=== PATIENT | male | born 1940 | race Caucasian/White ===

== ENCOUNTER → 2018-07-13 09:30 | Outpatient (CLI) | payer MEDICARE, SELFPAY ==
--- NOTE | 2018-07-13 09:33 | MR_ITS ---
MR head/brain wo con HISTORY: Headache, tremor, facial numbness with dizziness and lightheadedness ITS.REASON: HEADACHE, TREMOR, RT SIDED WEAKNESS ORDERING PHYSICIAN: Purnima Allen PATIENT AGE: 77 years Comparison: None TECHNIQUE: Standard multiplanar multiecho sequences are performed without contrast. FINDINGS: No midline shift, mass effect, intracranial hemorrhage, hydrocephalus, or acute infarction is evident. Confluent periventricular and subcortical T2 white matter hyperintensities are noted consistent with ischemic gliotic change from microvascular disease. The pituitary, optic chiasm, and craniocervical junction are unremarkable. No mastoid effusion. There is a small air-fluid level in the left maxillary sinus. IMPRESSION: 1. No acute intracranial findings. 2. Periventricular ischemic gliotic change
== END ==
PROVIDERS: PCP Family Medicine; Visit Provider Family Medicine
DX: R51 Headache (principal); R53.1 Weakness; R20.0 Anesthesia of skin; R42 Dizziness and giddiness; R25.1 Tremor, unspecified
CPT/HCPCS: 70551

== ENCOUNTER → 2018-09-14 22:40 | Outpatient (CLI) | payer MEDICARE, SELFPAY | PROVIDERS: PCP Family Medicine; Visit Provider Emergency Medicine | DX: R33.9 Retention of urine, unspecified (principal) ==

== ENCOUNTER → 2019-02-08 13:28 | Outpatient (CLI) | payer MEDICARE, SELFPAY ==
--- NOTE | 2019-02-08 13:32 | XR_ITS ---
XR chest 2V HISTORY: ITS.REASON: SOB ORDERING PHYSICIAN: Purnima Allen PATIENT AGE: 78 years COMPARISON: 09/06/2018 FINDINGS: The cardiomediastinal silhouette and pulmonary vascularity are within normal limits. The lungs are clear without infiltrates, suspicious nodules, or pleural effusions. On the lateral view there is increased density overlying the T6-T7 vertebral bodies which may be due to an overlying osteophyte There are degenerative changes in the thoracic spine. Bilateral nipple artifacts are noted. IMPRESSION: No change with no acute finding
--- NOTE | 2019-02-08 13:33 | US_ITS ---
US soft tissue head and neck CLINICAL INDICATION: ITS.REASON: LYMPHADENOPATHY ORDERING PHYSICIAN: Purnima Allen PATIENT AGE: 78 years Comparison: None FINDINGS: General survey is performed of the neck. The parotid and submandibular glands have an unremarkable appearance. No dominant adenopathy evident. There are few scattered small nodes present. No abnormal fluid collections. IMPRESSION: Unremarkable neck ultrasound. More thorough evaluation may be performed with CT if clinically desired
== END ==
PROVIDERS: PCP Family Medicine; Visit Provider Family Medicine
DX: R06.02 Shortness of breath (principal); R59.1 Generalized enlarged lymph nodes
CPT/HCPCS: 71046; 76536; 94060

== ENCOUNTER → 2019-04-17 15:45 | Outpatient (CLI) | payer MEDICARE, SELFPAY ==
--- NOTE | 2019-04-17 15:50 | XR_ITS ---
PROCEDURE: XR CHEST 2V CLINICAL HISTORY: CP/BACK PAIN; PLEURISY COMPARISON: CXR2V XR chest 2V from 09/06/2018 TECHNIQUE: PA and lateral FINDINGS: The cardiomediastinal silhouette and pulmonary vascularity are within normal limits The lungs are clear without infiltrates, suspicious nodules, or pleural effusions. Additional findings. No acute bony abnormalities there are degenerative in the thoracic spine IMPRESSION: No change with no acute finding Dictated by: Isidoro Rooney MD 04/17/2019 16:14 Signed by: <Electronically signed by sIidoro Rooney MD in [place]> 04/17/2019 16:14
== END ==
PROVIDERS: PCP Family Medicine; Visit Provider Family Medicine
DX: R07.9 Chest pain, unspecified (principal); M54.9 Dorsalgia, unspecified; R09.1 Pleurisy
CPT/HCPCS: 71046

== ENCOUNTER 2019-05-19 10:02 | Observation (INO) ==
--- NOTE | 2019-05-19 10:14 | Emergency Department Note ---
ED Disposition Clinical Impression: Chest pain Disposition: Admitted as Observation Condition on Discharge: Serious Referrals: Provider,Referral, [Primary Care Provider] - - Critical Care Critical Care Time: No Attestation: On , the high probability of a clinically significant, sudden or life threa tening deterioration of the following system(s) required my full and direct attention, intervention and personal management. The time I documented below is in addition to time spent performing reported procedures but includes the following listed in this critical care notation. Medical Decision Making - Medical Records Medical records reviewed: Yes: I reviewed the patient's medical records. - Deonte Inquiry Pt receiving controlled substance: No Vital Signs: 05/19/19 10:03 05/19/19 10:33 05/19/19 10:56 Temperature 98.1 F Temperature Source Oral Pulse Rate [Left Radial] 57 L 56 L 54 L Respiratory Rate 20 Blood Pressure [Right Arm] 177/91 H 110/60 162/91 H Blood Pressure Mean [Right Arm] 119 76 114 Blood Pressure Source [Right Arm] Automatic Cuff Automatic Cuff Blood Pressure Position [Right Arm] Sitting Sitting 02 Sat by Pulse Oximetry 98 97 97 Oxygen Delivery Method Room Air - Lab Data Lab Results 05/19/19 10:11: WBC 7.0, RBC 5.05, Hgb 14.7, Hct 45.4, MCV 90.0, MCH 29.0, MCHC 32.3, RDW 13.3, Plt Count 291, MPV 6.4 L, Neut % (Auto) 61.3, Lymph % (Auto) 25.0, [place] % (Auto) 8.5, Eos % (Auto) 4.5, Baso % (Auto) 0.7, Neut # (Auto) 4.3, Lymph # (Auto) 1.8, [place] # (Auto) 0.6, Eos # (Auto) 0.3, Baso # (Auto) 0.1 05/19/19 10:11: Sodium 139, Potassium 4.3, Chloride 103, Carbon Dioxide 31, Anion Gap 9.3, BUN 27 H, Creatinine 0.99, Estimated Creat Clear 70, Estimated GFR 73, Est GFR ( Amer) 88, Glucose 103, Calcium 8.8, Troponin I < 0.02 Result diagrams: 05/19/19 10:11 05/19/19 10:11 Orders (Tests/Meds): ED MEDICATIONS Generic Name Dose Route Start Last Admin Trade Name Freq PRN Reason Stop Dose Admin Sodium Chloride 1,000 mls @ 999 mls/hr 05/19/19 11:00 05/19/19 11:01 Sod Chlor 0.9% 1000ml Bag IV 05/19/19 12:00 999 mls/hr .Q1H1M TATYANA Administration Discontinued Medications Generic Name Dose Route Start Last Admin Trade Name Freq PRN Reason Stop Dose Admin Aspirin 324 mg 05/19/19 10:57 05/19/19 11:02 Aspirin 81mg Chewable Tablet PO 05/19/19 10:58 324 mg ONCE ONE Administration - ECG Data Tracing #1 I reviewed this ECG and interpreted as documented below: This bradycardia at 54, normal axis, no ectopic beats, no hypertrophy, no AV or bundle-branch branch blocks, signs of ischemia or infarction. Chest Pain HPI - General Chief Complaint: Chest Pain Stated Complaint: chest pain Time Seen by Provider: 05/19/19 10:09 Mode of Arrival: Ambulatory Limitations: No Limitations Description of Symptoms (Recalled from ER Triage Doc. by RN): to ed per pvt car with c/o sharp chest pain and lt arm tingling this am lasting approx 10mins. pt states pain free at present. +SOB, -Nausea, pt states has had intermittent episode x several months. denies cough, fever, chills - History of Present Illness MD complaint: chest pain Onset (ago): hour(s) (1) Duration: intermittent, now resolved Activity at onset: during rest Pain location: epigastric Severity: moderate Quality: tightness Relieving factors: nothing Exacerbating factors: nothing Associated symptoms: other (Numbness and tingling left lower arm and hand) Treatments prior to or on arrival for Cardiac Chest Pain: none - ANETA Score for Non-Stemi Age of Patient: 70-79 years old Heart Rate: 50-69 bpm Systolic Blood Pressure: 160-199 mmHg Serum Creatinine: 0.80-1.19 mg/dl CHF [place] Class: I-No CHF Other Risk Factors: None Non-Stemi Risk Score: 95 Risk Stratification: 1-108 = Low Risk - Related Data Home Medications Medication Instructions Recorded Confirmed Atenolol [Atenolol 25mg Tab] 25 mg PO BID 01/30/18 10/10/18 Lisinopril [Lisinopril 5mg 5 mg PO DAILY 01/30/18 10/10/18 Tablet] Omeprazole [Omeprazole 40mg 40 mg PO DAILY 01/30/18 10/10/18 Capsule] Simvastatin 40 mg PO DAILY 01/30/18 10/10/18 Tamsulosin HCl [Flomax 0.4mg 0.4 mg PO HS 10/10/18 10/10/18 capsule] Previous Rx's Medication Instructions Recorded hydrochlorothiazide 12.5 mg capsule 12.5 mg PO DAILY #30 cap 07/14/18 Allergies Allergy/AdvReac Type Severity Reaction Status Date / Time codeine [CODEINE] Allergy Unknown Verified 09/13/18 21:55 [facility] History - Hepatitis A Screen Drug use history?: No High risk sexual behaviors?: No History of sexually transmitted infection?: No Currently employed?: No Childcare worker?: No Do you have indoor plumbing?: Yes Do you have electricity?: Yes Attestation statement:: This patient has been screened for Hepatitis A risk factors. I have reviewed the patient's past medical history: Yes Medical History: Reports:: Atrial Fibrillation, Gastroesophageal Reflux Disease(GERD), Hyperlipidemia, Hypertension Denies:: Cancer, Diabetes Mellitus Type 1, Diabetes Mellitus Type 2, Internal Pacemaker, Lung Disease, MRSA, Seizures Other Medical History: Reports: Other Comment: Fluid around lungs Other Surgeries: Yes: Other. No: Pacemaker Amputation: No Fractures: No Comment: Prostate surgery - Social History Smoking Status: Former smoker Alcohol Intake: never Alcohol Intake Frequency:: holidays/special occasions only Substance Use Type: denies use Occupational Status: retired Housing: house Household Members: none Family Hx:: No significant family history ROS Obtained: Yes Systems reviewed as appropriate & no additional complaints - Constitutional Constitutional: Reports system reviewed and no additional complaints, except as docu - Eyes Eyes: Reports system reviewed and no additional complaints, except as docu - ENT Ears, Nose, Mouth, and Throat: Reports system reviewed and no additional complaints, except as docu - Cardiovascular Cardiovascular: Reports chest pain, Reports other (This and tingling in the left lower arm and hand) - Respiratory Respiratory: Yes system reviewed and no additional complaints, except as docu - Gastrointestinal Gastrointestingal: Reports: system reviewed and no additional complaints, except as docu - Genitourinary Male Genitourinary: Reports system reviewed and no additional complaints, except as docu - Musculoskeletal Musculoskeletal: Reports system reviewed and no additional complaints, except as docu - Integumentary/Breasts Skin/Breast: Reports system reviewed and no additional complaints, except as docu - Neurologic Neurologic: Reports system reviewed and no additional complaints, except as docu - Endocrine Endocrine: Reports system reviewed and no additional complaints, except as docu - Hematologic/Lymphatic Henatologic/Lymphatic: Reports system reviewed and no additional complaints, except as docu - Allergic/Immunologic Allergic/Immunologic: Reports system reviewed and no additional complaints, except as docu Physical Exam - General General appearance: alert, in no apparent distress - Head Head exam: atraumatic, normocephalic, normal inspection - Eye Eye exam: Present: normal appearance, EOMI - ENT ENT exam: Present: normal exam, normal oropharynx, mucous membranes moist, TM's normal bilaterally, normal external ear exam - Neck Neck exam: Present: normal inspection, full ROM, trachea midline. Absent: meningismus, lymphadenopathy - Chest Chest inspection: Present: normal inspection, symmetric chest wall rise. Absent: tenderness - Respiratory Respiratory exam: Present: normal lung sounds bilaterally. Absent: respiratory distress - Cardiovascular Cardiovascular exam: Present: normal rhythm, bradycardia, normal heart sounds. Absent: JVD - Abdominal Exam Abdominal exam: Present: soft, normal bowel sounds. Absent: distention, tenderness, guarding - Extremities Exam Extremities exam: Present: normal inspection, full ROM, normal capillary refill. Absent: calf tenderness - Back Exam Back exam: Present: normal inspection. Absent: tenderness - Neurological Exam Neurological exam: Present: alert, oriented X3, CN II-XII intact, normal gait - Psychiatric Psychiatric exam: Present: normal affect, normal mood - Skin Skin exam: Present: warm, dry, intact, normal color - Lymphatic Lymphatic Findings: no adenopathy
[2019-05-19 10:21] LABS: Basophils # 0.1 K/mm3 (0-0.2); Basophils % 0.7 % (0.1-2.0); Eosinophils # 0.3 K/mm3 (0.0-0.4); Eosinophils % 4.5 % (0.1-12.0); Hematocrit 45.4 % (42.0-52.0); Hemoglobin 14.7 g/dL (14.1-18.0); Lymphocytes # 1.8 K/mm3 (0.7-4.5); Mean Corpuscular HGB Conc 32.3 g/dL (31.8-35.4); Mean Platelet Volume 6.4 fl (7.4-10.4); Monocytes # 0.6 K/mm3 (0.1-1.0); Monocytes % 8.5 % (1.7-9.3); Neutrophils # 4.3 K/mm3 (1.8-7.8); Neutrophils % 61.3 % (37.0-80.0); Platelet Count 291 K/mm3 (142-424); Red Blood Count 5.05 M/mm3 (4.60-6.20); Red Cell Distribution Width 13.3 % (11.5-17.5)
[2019-05-19 10:34] LABS: Anion Gap 9.3 mEq/L (5-15); Blood Urea Nitrogen 27 mg/dL (7-18); Calcium 8.8 mg/dL (8.5-10.1); Carbon Dioxide 31 mmol/L (21.0-32.0); Chloride 103 mmol/L (98-107); Glucose 103 mg/dL (74-106); Sodium 139 mmol/L (136-145)
--- NOTE | 2019-05-19 13:06 | Pharmacy Consult Notes ---
[facility] Pharmacy VTE Monitoring - Patient Demographics Admission date: 05/19/19 Report Date: 05/19/19 Time: 13:06 Allergies/Adverse Reactions: Patient Allergies codeine [CODEINE] Allergy (Unknown, Verified 09/13/18 21:55) Height: 1.73 m Weight: 82.639 kg Patient Problems: Current Active Problems Chest pain (Acute) - VTE Risk Labs: VTE Related Lab Results Hgb 14.7 g/dL (14.1-18.0) 05/19/19 10:11 Hct 45.4 % (42.0-52.0) 05/19/19 10:11 Plt Count 291 K/mm3 (142-424) 05/19/19 10:11 BUN 27 mg/dL (7-18) H 05/19/19 10:11 Creatinine 0.99 mg/dL (0.70-1.30) 05/19/19 10:11 Estimated Creat Clear 70 mL/min (50-200) 05/19/19 10:11 Was VTE Risk Assessment Performed: Yes VTE Score: 2 VTE Risk Level: Very Low Risk - Prophylaxis VTE Prophylaxis Ordered?: Yes Types of VTE Prophylaxis: TEDS Knee High Location of Applied Device: Bilateral Lower Extremeties
--- NOTE | 2019-05-19 14:59 | History & Physical Report ---
*Admission Date: 05/19/19 *Chief complaint: Chest pain *History of present illness: Mr. Monae is a 78-year-old white male in generally good health for his age. He has a history of hypertension, hyperlipidemia, BPH, and GERD. He has been having brief intermittent episodes of substernal chest pain and tingling in his left arm and hand for several weeks. He minimizes symptoms until recently was having similar symptoms and found to have " maker lesion". When he had another episode of chest pain this morning he came to emergency room. He was worked up in the ER. His initial EKG and enzymes were negative however because of his presenting complaints he has been admitted for serial enzymes to rule out acute CO. He reports having had a heart cath about 2 years ago which was "normal". He was supposed to follow-up with Dr. Mclean but did not. He has continued to follow with his primary care physician, Dr. Luz Marina Allen in [place]. He apparently was on several blood pressure medications but because of hypotension many of these have been discontinued. At the present time he denies chest pain. Cardiac risk factors include age, gender, family history, past history of smoking, hypertension, and hyperlipidemia [facility] History Medical History: Reports:: Gastroesophageal Reflux Disease(GERD), Hyperlipidemia, Hypertension Denies:: Cancer, Diabetes Mellitus Type 1, Diabetes Mellitus Type 2, Internal Pacemaker, Lung Disease, MRSA, Seizures *Have you ever received a pneumonia vaccine?: Yes *Have you received a flu vaccine this season?: No Other Medical History: Reports: Arthritis, Other (BPH) Other Surgeries: Yes: Other. No: Pacemaker Amputation: No Fractures: No - *Social History Educational Level: Completed High School Smoking Status: Former smoker Tobacco Type: cigarettes # Packs/Day (cigarettes): 1 #Yrs smoked (if former smoker): 45 Alcohol Intake Frequency:: holidays/special occasions only Substance Use Type: denies use *Occupational Status:: retired Housing: house Household Members: none *Travel in the last 8 weeks: None Family Hx:: Hyperlipidemia Review of Systems - Constitutional Denies anorexia, Denies headache(s), Denies lack of energy - Eyes Denies change in vision - ENT Denies dizziness, Denies dry mouth, Denies headache(s) - *Cardiovascular Reports other (See HPI) - *Respiratory Denies chest congestion, Denies cough - *Gastrointestinal Reports heartburn, Denies change in bowel habits, Denies difficulty swallowing, Denies bright, red blood in stools - *Genitourinary Reports urinary frequency, Reports urinary hesitancy, Denies blood in urine - *Musculoskeletal Denies joint swelling, Denies muscle cramps - Integumentary/Breasts Denies change in skin color, Denies itching, Denies rash - *Neurologic Denies behavioral changes, Denies confusion, Denies memory loss - Psychiatric Denies behavioral changes, Denies confusion, Denies memory loss - Endocrine Denies excessive sweating - Hematologic/Lymphatic Denies easy bruising - Allergic/Immunologic Denies lip swelling, Denies throat swelling Meds Home Medications Medication Instructions Recorded Confirmed Type Atenolol [Atenolol 25mg Tab] 25 mg PO BID 01/30/18 05/19/19 History Omeprazole [Omeprazole 40mg 40 mg PO DAILY 01/30/18 05/19/19 History Capsule] Simvastatin 40 mg PO HS 01/30/18 05/19/19 History Tamsulosin HCl [Flomax 0.4mg 0.4 mg PO HS 10/10/18 05/19/19 History capsule] Finasteride [Proscar 5mg Tablet] 5 mg PO DAILY 05/19/19 05/19/19 History Allergies Allergy/AdvReac Type Severity Reaction Status Date / Time codeine [CODEINE] Allergy Unknown Verified 09/13/18 21:55 Exam Vital signs and Labs for Last 24 Hours: Temp Pulse Resp BP Pulse Ox 98.0 F 58 L 18 180/94 H 96 05/19/19 12:39 05/19/19 12:39 05/19/19 12:39 05/19/19 12:39 05/19/19 12:39 Laboratory Results - last 24 hr 05/19/19 10:11: WBC 7.0, RBC 5.05, Hgb 14.7, Hct 45.4, MCV 90.0, MCH 29.0, MCHC 32.3, RDW 13.3, Plt Count 291, MPV 6.4 L, Neut % (Auto) 61.3, Lymph % (Auto) 25.0, [place] % (Auto) 8.5, Eos % (Auto) 4.5, Baso % (Auto) 0.7, Neut # (Auto) 4.3, Lymph # (Auto) 1.8, [place] # (Auto) 0.6, Eos # (Auto) 0.3, Baso # (Auto) 0.1 05/19/19 10:11: Sodium 139, Potassium 4.3, Chloride 103, Carbon Dioxide 31, Anion Gap 9.3, BUN 27 H, Creatinine 0.99, Estimated Creat Clear 70, Estimated GFR 73, Est GFR ( Amer) 88, Glucose 103, Calcium 8.8, Troponin I < 0.02 I & O for Last 24 hours: Intake & Output 05/17/19 05/18/19 05/19/19 05/20/19 11:59 11:59 11:59 11:59 Weight 180 lb 182 lb 3 oz Narrative: He is lying in bed and appears in no distress. Color is normal. He is alert and conversant. HEENT shows a cream to be atraumatic and normocephalic. Sclera were clear. Oropharynx shows moist mucous membranes. Neck is supple with no masses, thyromegaly, or bruits. Lungs are clear to auscultation. Heart is regular. No ectopy. No chest wall tenderness. Abdomen is soft and nond istended with no unusual masses or tenderness. Extremities show no edema. Assessment and Plan (1) Hypertension Current visit: Yes Status: Acute Category: Medical Code(s): I10 - Essential (primary) hypertension (2) Hyperlipidemia Current visit: Yes Status: Acute Category: Medical Code(s): E78.5 - Hyperlipidemia, unspecified (3) BPH (benign prostatic hyperplasia) Current visit: Yes Status: Acute Category: Medical Code(s): N40.0 - Benign prostatic hyperplasia without lower urinary tract symptoms (4) GERD (gastroesophageal reflux disease) Current visit: Yes Status: Acute Category: Medical Code(s): K21.9 - Gastro-esophageal reflux disease without esophagitis (5) Chest pain Current visit: Yes Status: Acute Category: Medical Code(s): R07.9 - Chest pain, unspecified - Assessment and plan all Dx Assessment and Plan for all problems:: He appears comfortable and stable. No chest pain at present. We will proceed with serial enzymes. Blood pressure has been elevated since admission, if this persists we will need to reinstitute antihypertensive medication. If he rules out for acute CO, we will plan for discharge and follow-up for outpatient stress test with Dr. Mclean
[2019-05-20 04:52] LABS: Alanine Aminotransferase 20 U/L (12-78); Albumin Level 3.2 gm/dL (3.4-5.0); Albumin/Globulin Ratio 1.1 (1.1-1.8); Alkaline Phosphatase 58 U/L (46-116); Anion Gap 11.1 mEq/L (5-15); Aspartate Amino Transferase 18 U/L (15-37); Bilirubin,Total 0.4 mg/dL (0.2-1.0); Blood Urea Nitrogen 21 mg/dL (7-18); Calcium 8.1 mg/dL (8.5-10.1); Carbon Dioxide 28 mmol/L (21.0-32.0); Chloride 106 mmol/L (98-107); Cholesterol 146 mg/dL (140-200); Glucose 101 mg/dL (74-106); HDL Cholesterol 49 mg/dL (27-67); LDL Cholesterol 80 mg/dL (0-130); Sodium 141 mmol/L (136-145); Total Protein,Serum 6.2 gm/dL (6.4-8.2); Triglycerides 86 mg/dL (30-200); VLDL Cholesterol 17 mg/dL (0-40)
[2019-05-20 05:06] LABS: Basophils % 0.5 % (0.1-2.0); Eosinophils # 0.3 K/mm3 (0.0-0.4); Eosinophils % 3.8 % (0.1-12.0); Hematocrit 41.3 % (42.0-52.0); Lymphocytes # 1.9 K/mm3 (0.7-4.5); Lymphocytes % 27.4 % (10-50); Mean Corpuscular HGB Conc 31.9 g/dL (31.8-35.4); Mean Corpuscular Volume 90.4 fl (80-94); Mean Platelet Volume 6.5 fl (7.4-10.4); Monocytes # 0.5 K/mm3 (0.1-1.0); Monocytes % 7.5 % (1.7-9.3); Neutrophils # 4.1 K/mm3 (1.8-7.8); Neutrophils % 60.8 % (37.0-80.0); Platelet Count 255 K/mm3 (142-424); Red Blood Count 4.57 M/mm3 (4.60-6.20); Red Cell Distribution Width 13.4 % (11.5-17.5); White Blood Count 6.8 K/mm3 (4.8-10.8)
[2019-05-20 05:07] LABS: Hemoglobin 13.1 g/dL (14.1-18.0)
--- NOTE | 2019-05-20 08:25 | Progress Note ---
Internal Medicine - PN: Subj *Date: 05/20/19 *Time: 09:06 Interval history: He states he feels good this morning and wants to go home. He had an episode of pain in his left elbow and shoulder around midnight last night. Stat EKG and enzymes were ordered and these were negative. He reports a history of arthritis in that shoulder and it frequently gives him problems. He had no associated chest pain at the time he had the arm pain. Exam Vital signs and Labs for Last 24 Hours: Temp Pulse Resp BP Pulse Ox 98.7 F 50 L 18 171/99 H 92 L 05/20/19 07:21 05/20/19 08:00 05/20/19 07:21 05/20/19 07:21 05/20/19 07:21 Laboratory Results - last 24 hr 05/19/19 10:11: WBC 7.0, RBC 5.05, Hgb 14.7, Hct 45.4, MCV 90.0, MCH 29.0, MCHC 32.3, RDW 13.3, Plt Count 291, MPV 6.4 L, Neut % (Auto) 61.3, Lymph % (Auto) 25.0, [place] % (Auto) 8.5, Eos % (Auto) 4.5, Baso % (Auto) 0.7, Neut # (Auto) 4.3, Lymph # (Auto) 1.8, [place] # (Auto) 0.6, Eos # (Auto) 0.3, Baso # (Auto) 0.1 05/19/19 10:11: Sodium 139, Potassium 4.3, Chloride 103, Carbon Dioxide 31, Anion Gap 9.3, BUN 27 H, Creatinine 0.99, Estimated Creat Clear 70, Estimated GFR 73, Est GFR ( Amer) 88, Glucose 103, Calcium 8.8, Troponin I < 0.02 05/19/19 14:30: Troponin I < 0.02 05/19/19 20:15: Troponin I < 0.02 05/20/19 01:25: Troponin I < 0.02 05/20/19 04:30: WBC 6.8, RBC 4.57 L, Hgb 13.1 L D, Hct 41.3 L, MCV 90.4, MCH 28.8, MCHC 31.9, RDW 13.4, Plt Count 255, MPV 6.5 L, Neut % (Auto) 60.8, Lymph % (Auto) 27.4, [place] % (Auto) 7.5, Eos % (Auto) 3.8, Baso % (Auto) 0.5, Neut # (Auto) 4.1, Lymph # (Auto) 1.9, [place] # (Auto) 0.5, Eos # (Auto) 0.3, Baso # (Auto) 0.0 05/20/19 04:30: Sodium 141, Potassium 4.1, Chloride 106, Carbon Dioxide 28, Anion Gap 11.1, BUN 21 H, Creatinine 0.95, Estimated Creat Clear 71, Estimated GFR 77, Est GFR ( Amer) 93, Glucose 101, Calcium 8.1 L, Magnesium 1.9, Total Bilirubin 0.4, AST 18, ALT 20, Alkaline Phosphatase 58, Troponin I < 0.02, Total Protein 6.2 L, Albumin 3.2 L, Globulin 3.0, Albumin/Globulin Ratio 1.1, Triglycerides 86, Cholesterol 146, LDL Cholesterol 80, VLDL Cholesterol 17, HDL Cholesterol 49, Cholesterol/HDL Ratio 3.0 I & O for Last 24 hours: Intake & Output 05/17/19 05/18/19 05/19/19 05/20/19 11:59 11:59 11:59 11:59 Intake Total 1907 Balance 1907 Weight 180 lb 182 lb 8 oz Narrative: He is alert and in no distress. Lungs are clear. Heart is regular with no ectopy. No chest wall tenderness. He has decreased range of motion of the left shoulder due to pain and stiffness. Lower extremities show no edema. Assessment and Plan (1) Chest pain Current visit: Yes Status: Acute Category: Medical Code(s): R07.9 - Chest pain, unspecified (2) Hypertension Current visit: Yes Status: Acute Category: Medical Code(s): I10 - Essential (primary) hypertension (3) Hyperlipidemia Current visit: Yes Status: Acute Category: Medical Code(s): E78.5 - Hyperlipidemia, unspecified (4) BPH (benign prostatic hyperplasia) Current visit: Yes Status: Acute Category: Medical Code(s): N40.0 - Benign prostatic hyperplasia without lower urinary tract symptoms (5) GERD (gastroesophageal reflux disease) Current visit: Yes Status: Acute Category: Medical Code(s): K21.9 - Gastro-esophageal reflux disease without esophagitis - Assessment and plan all Dx Assessment and Plan for all problems:: He has been ruled out for MS. He is stable to discharge home and will arrange outpatient follow-up with Dr. Mclean for additional testing by way of a stress test. His blood pressure has been consistently elevated during this admission and he will be started back on Prinivil 5 mg daily in addition to the atenolol. He is also advised to take aspirin 81 mg daily. He is planning to switch his primary care to Dr. Alicea and will contact his office tomorrow for follow-up appointment.
--- NOTE | 2019-05-20 21:02 | Electrocardiograph Report ---
APPROVED REPORT Exam: Resting ECG HR:50 bpm ECG Measurements Heart Rate 50 AXES [place] 132 P 66 QRSd 84 QRS 39 QT 452 T53 QTc 412 <Conclusion> Sinus bradycardia Otherwise normal ECG Electronically signed by : Liban Aguilera, 05/20/2019 21:01:50
--- NOTE | 2019-05-20 21:02 | Electrocardiograph Report ---
APPROVED REPORT Exam: Resting ECG HR:49 bpm ECG Measurements Heart Rate 49 AXES [place] 140 P 67 QRSd 88 QRS 51 QT 462 T61 QTc 417 <Conclusion> Marked sinus bradycardia Incomplete RBBB Abnormal ECG Electronically signed by : Liban Aguilera, 05/20/2019 21:01:25
--- NOTE | 2019-05-20 21:10 | Electrocardiograph Report ---
APPROVED REPORT Exam: Resting ECG HR:54 bpm ECG Measurements Heart Rate 54 AXES [place] 144 P 67 QRSd 88 QRS 44 QT 426 T43 QTc 403 <Conclusion> Sinus bradycardia Otherwise normal ECG Electronically signed by : Liban Aguilera, 05/20/2019 21:10:14
--- NOTE | 2019-05-21 14:41 | Discharge Summary ---
General - General Admission date:: 05/19/19 Discharge date: 05/20/19 HPI HPI: Mr. Monae is a 78-year-old white male in generally good health for his age. He has a history of hypertension, hyperlipidemia, BPH, and GERD. He had been having brief intermittent episodes of substernal chest pain and tingling in his left arm and hand for several weeks. He minimized symptoms until recently when he was having similar symptoms and found to have " maker lesion". When he had another episode of chest pain the am of admission, he came to emergency room. He was worked up in the ER. His initial EKG and enzymes were negative, however because of his presenting complaints he was admitted for serial enzymes to rule out acute NM. He reported having had a heart cath about 2 years ago which was "normal". He was supposed to follow-up with Dr. Mclean but did not. He had continued to follow with his primary care physician, Dr. Luz Marina Allen in [place]. He apparently was on several blood pressure medications but because of hypotension, many of these have been discontinued. Cardiac risk factors include age, gender, family history, past history of smoking, hypertension, and hyperlipidemia Hospital Course Hospital Course: The patient had a chest x-ray showing nothing acute. He had no chest pain by the time of history and physical. Serial enzymes were ordered. He did have an episode during the night of pain in his left elbow and shoulder. He had a stat EKG and enzymes and they were negative. All of his troponins were normal. He was ruled out for an NM and was stable to be discharged home. An outpatient follow-up will be arranged with Dr. Mclean for additional testing by way of a stress test. His blood pressure was consistently elevated during admission, therefore he was started back on Prinivil 5 mg daily in addition to his atenolol. He was also advised to take an 81 mg aspirin daily Objective Vital signs: Temp Pulse Resp BP Pulse Ox 98.7 F 50 L 18 171/99 H 92 L 05/20/19 07:21 05/20/19 08:00 05/20/19 07:21 05/20/19 07:21 05/20/19 07:21 Narrative: He is alert and in no distress. Lungs are clear. Heart is regular with no ectopy. No chest wall tenderness. He has decreased range of motion of the left shoulder due to pain and stiffness. Lower extremities show no edema. DS: Diagnosis - Discharge Diagnosis (1) Chest pain Status: Acute (2) Hypertension Status: Acute (3) Hyperlipidemia Status: Acute (4) BPH (benign prostatic hyperplasia) Status: Acute (5) GERD (gastroesophageal reflux disease) Status: Acute Discharge Plan - Patient Discharge Instructions ACTIVITY: Continue current activity DIET: low fat, low cholesterol, low salt diet Patient Instructions: DI for Angina - Follow up Plan Follow up with: Larry Mclean MD [Staff Physician] - 05/31/19 Disposition: Home, Self-Snf Medications: Home Medications Medication Instructions Recorded Confirmed Type Atenolol [Atenolol 25mg Tab] 25 mg PO BID 01/30/18 05/19/19 History Omeprazole [Omeprazole 40mg 40 mg PO DAILY 01/30/18 05/19/19 History Capsule] Simvastatin 40 mg PO HS 01/30/18 05/19/19 History Tamsulosin HCl [Flomax 0.4mg 0.4 mg PO HS 10/10/18 05/19/19 History capsule] Finasteride [Proscar 5mg Tablet] 5 mg PO DAILY 05/19/19 05/19/19 History Aspirin [Aspirin 81mg EC Tab] 81 mg PO DAILY #30 tablet. 05/20/19 Rx Lisinopril [Prinivil 5mg Tablet] 5 mg PO DAILY #30 tab 05/20/19 Rx Prescriptions/Medication Reconciliation: New Lisinopril [Prinivil 5mg Tablet] 5 mg PO DAILY #30 tab Aspirin [Aspirin 81mg EC Tab] 81 mg PO DAILY #30 tablet. Continued Omeprazole [Omeprazole 40mg Capsule] 40 mg PO DAILY Atenolol [Atenolol 25mg Tab] 25 mg PO BID Simvastatin 40 mg PO HS Tamsulosin HCl [Flomax 0.4mg capsule] 0.4 mg PO HS Finasteride [Proscar 5mg Tablet] 5 mg PO DAILY - Problem Reconciliation Problems Reviewed?: Yes
== END 2019-05-20 09:00 | disposition home or self-care (01) ==
LOC: ER 10:02 → 2ND 10:02
PROVIDERS: ADMIT Family Medicine; ATTEND Family Medicine
CPT/HCPCS: 36415; 71020; 71046; 80048; 80053; 80061; 83735; 84484; 85025; 93005; 96365; 99285; G0378

== ENCOUNTER → 2019-06-06 07:55 | Outpatient (CLI) | payer MEDICARE, SELFPAY ==
--- NOTE | 2019-06-06 08:01 | XR_ITS ---
PROCEDURE: XR HIP LT 2-3V W/PELVIS CLINICAL INDICATION: HIP PAIN COMPARISON: No exams were available for comparison FINDINGS: Bone density and joint spaces are normal. Alignment is normal. There is small inferior left femoral subcapital spur. There is no acute fracture. There are pelvic phleboliths. IMPRESSION: No acute process. Left hip degenerative changes. Dictated by: Fan Samson 06/06/2019 08:39 Electronically signed by Fan Samson in [place] 06/06/2019 08:39
--- NOTE | 2019-06-06 08:01 | XR_ITS ---
PROCEDURE: XR SACROILIAC JOINT BI MIN 3V CLINICAL INDICATION: HIP PAIN COMPARISON: No exams were available for comparison FINDINGS: Bone density is normal. Alignment and hip joint spaces are normal. There is small inferior subcapital spur from the proximal left femur. His sacral foramina and sacroiliac joints are normal. There is no acute fracture. There are pelvic phleboliths. IMPRESSION: Mild degenerative change left hip. No acute process. Dictated by: Fan Samson 06/06/2019 08:37 Electronically signed by Fan Samson in [facility] 06/06/2019 08:37
== END ==
PROVIDERS: PCP Family Medicine; Visit Provider Family Medicine
DX: M25.552 Pain in left hip (principal)
CPT/HCPCS: 72202; 73502

== ENCOUNTER → 2019-06-22 12:30 | Outpatient (CLI) | payer MEDICARE, SELFPAY ==
--- NOTE | 2019-06-22 12:32 | CA_ITS ---
APPROVED REPORT EXAM: Comprehensive 2D, Doppler, and color-flow Echocardiogram Digital Traffic Coordinator: Judith Loja RT(R) Ht: 5 ft 8 in Wt: 181lbs BSA: 1.96 BP: 148/76 mmHg Indications: HTN, SOB, Hyperlipidemia, CAD, AFIB, GERD 2D Dimensions Aortic Root 2.30 cm M: 3.1 - 3.7 Left Atrium 4.20 cm M: 3.0 - 4.0 LVOT 1.84 cm (M/F) 1.5-2.5 M-Mode Dimensions RVDd 1.60 cm (0.9-2.6) LVDd 4.99 cm (3.5-5.7) LVDs 3.85 cm (3.5-5.7) IVSd 0.76 cm (0.6-1.1) PWd 0.69 cm (0.6-1.1) EF (Teich) 45.70% FS 22.80% EDV (Teich) 117.70 mL ESV (Teich) 63.90 mL Left Ventricle Left atrium is mildly enlarged, left ventricle is normal size, there is mild concentric left ventricular hypertrophy, visually estimated ejection fraction 55% with no regional wall motion abnormality. Diastolic parameters are inconclusive. Right Ventricle Right atrium and right ventricular normal size and contractility. Aortic Valve Aortic valve is minimally thickened and fibrosed. Leaflet continue to display good mobility. There is no aortic stenosis aortic insufficiency. Mitral Valve Mitral valve is grossly normal, there is mild mitral regurgitation. Tricuspid Valve Tricuspid valve is grossly normal, there is mild tricuspid regurgitation, tricuspid regurgitation jet velocity is inadequate for calculation of the right ventricular systolic pressure. Pulmonic Valve Pulmonic valve is poorly visualized. Great Vessels Aortic root is normal size. Pericardium No significant pericardial effusion noted. Conclusion 1. Normal left ventricular size, mild concentric left ventricular hypertrophy, visually estimated ejection fraction 55% with no regional wall motion abnormality, diastolic parameters are inconclusive. 2. Mild mitral and tricuspid regurgitation 3. No significant pericardial effusion noted. Electronically signed by : Quan Mendez, 06/22/2019 20:47:04
== END ==
PROVIDERS: PCP Family Medicine; Visit Provider Internal Medicine Cardiovascular Disease
DX: R06.02 Shortness of breath (principal)
CPT/HCPCS: 93306

== ENCOUNTER → 2019-09-19 06:05 | Outpatient (CLI) | payer MEDICARE, SELFPAY ==
[2019-09-19 06:31] LABS: Basophils % 0.6 % (0.1-2.0); Eosinophils # 0.3 K/mm3 (0.0-0.4); Eosinophils % 4.1 % (0.1-12.0); Hematocrit 41.1 % (42.0-52.0); Hemoglobin 13.6 g/dL (14.1-18.0); Lymphocytes # 1.7 K/mm3 (0.7-4.5); Mean Corpuscular HGB Conc 33.2 g/dL (31.8-35.4); Mean Corpuscular Hemoglobin 29.8 pg (27.0-31.2); Mean Corpuscular Volume 89.9 fl (80-94); Mean Platelet Volume 7.2 fl (7.4-10.4); Monocytes # 0.5 K/mm3 (0.1-1.0); Neutrophils # 3.7 K/mm3 (1.8-7.8); Neutrophils % 59.3 % (37.0-80.0); Platelet Count 250 K/mm3 (142-424); Red Blood Count 4.57 M/mm3 (4.60-6.20); Red Cell Distribution Width 12.6 % (11.5-17.5); White Blood Count 6.2 K/mm3 (4.8-10.8)
[2019-09-19 08:59] LABS: Alanine Aminotransferase 14 U/L (12-78); Albumin Level 3.5 gm/dL (3.4-5.0); Albumin/Globulin Ratio 1.2 (1.1-1.8); Alkaline Phosphatase 71 U/L (46-116); Anion Gap 12.3 mEq/L (5-15); Aspartate Amino Transferase 16 U/L (15-37); Bilirubin,Total 0.7 mg/dL (0.2-1.0); Blood Urea Nitrogen 23 mg/dL (7-18); Carbon Dioxide 26 mmol/L (21.0-32.0); Chloride 103 mmol/L (98-107); Chol/HDL Ratio 3.1 (1-3.5); Cholesterol 151 mg/dL (140-200); Creatinine,Serum 0.97 mg/dL (0.70-1.30); Estimated Glomerular Filt Rate 75 ml/min (>60); GFR (African American) 91 ML/MIN (>60); Glucose 102 mg/dL (74-106); HDL Cholesterol 48 mg/dL (27-67); LDL Cholesterol 90 mg/dL (0-130); Potassium 4.3 mmoL/L (3.5-5.1); Prostate Specific Ag, Diagnost 3.56 ng/mL (0.0-4.0); Sodium 137 mmol/L (136-145); Total Protein,Serum 6.5 gm/dL (6.4-8.2); Triglycerides 65 mg/dL (30-200); VLDL Cholesterol 13 mg/dL (0-40)
== END ==
PROVIDERS: PCP Internal Medicine; Visit Provider Internal Medicine
DX: I25.10 Atherosclerotic heart disease of native coronary artery without angina pectoris (principal); I10 Essential (primary) hypertension; J44.9 Chronic obstructive pulmonary disease, unspecified; E78.5 Hyperlipidemia, unspecified; N40.0 Benign prostatic hyperplasia without lower urinary tract symptoms
CPT/HCPCS: 36415; 80053; 80061; 84153; 85025

== ENCOUNTER → 2020-03-12 09:03 | Outpatient (CLI) | payer MEDICARE, SELFPAY ==
--- NOTE | 2020-03-12 09:59 | CA_ITS ---
APPROVED REPORT EXAM: Comprehensive 2D, Doppler, and color-flow Echocardiogram Managing Cognitive Engineer: Day Arriaga CRT Ht: 5 ft 8 in Wt: 191lbs BSA: 2.00 BP: 126/64 mmHg Indications: Chest Pain, COPD, Shortness of Breath, CAD, Hyperlipidemia, Hypertension/HDD 2D Dimensions LVOT 1.92 cm (M/F) 1.5-2.5 M-Mode Dimensions RVDd 3.27 cm (0.9-2.6) LVDd 4.07 cm (3.5-5.7) LVDs 2.74 cm (3.5-5.7) IVSd 1.48 cm (0.6-1.1) PWd 0.99 cm (0.6-1.1) EF (Teich) 61.60% FS 32.70% EDV (Teich) 72.90 mL ESV (Teich) 28.00 mL LV Diastology E/A Ratio 1.18 Mitral Valve MV A Velocity 69.00 (40-130 cm/s) Left Ventricle Left atrium is mildly enlarged, left ventricle is normal size, mild concentric left ventricular hypertrophy, visually estimated ejection fraction 55% with no regional wall motion abnormality. Grade 1 diastolic dysfunction seen without tissue Doppler evidence of raise left atrial pressure. Right Ventricle Right atrium and right ventricular mildly enlarged with normal contractility. Aortic Valve Aortic valve is minimally thickened and fibrosed, there is no aortic stenosis or aortic insufficiency. Mitral Valve Mitral valve leaflets are minimally thickened, there is no mitral stenosis, there is mild mitral regurgitation. Tricuspid Valve Tricuspid valve is grossly normal, there is mild tricuspid regurgitation, calculated right ventricular systolic pressure is 50mmHg. Pulmonic Valve Pulmonic valve is poorly visualized. Great Vessels Aortic root is normal size. Pericardium No significant pericardial effusion noted. Conclusion 1. Mild biatrial enlargement, normal left ventricular size, mild concentric left ventricular hypertrophy, visually estimated ejection fraction 55% with no regional wall motion abnormality, grade 1 diastolic dysfunction seen without tissue Doppler evidence of raise left atrial pressure. 2. Mildly enlarged right ventricle with normal contractility. 3. Mild mitral and tricuspid regurgitation, calculated right ventricular systolic pressure is 50 mmHg. 4. No significant pericardial effusion noted. Electronically signed by : Quan Mendez, 03/13/2020 10:27:48
== END ==
PROVIDERS: PCP Internal Medicine; Visit Provider Urology
DX: R07.89 Other chest pain; R06.02 Shortness of breath; R00.1 Bradycardia, unspecified; E78.2 Mixed hyperlipidemia; I10 Essential (primary) hypertension; I25.10 Atherosclerotic heart disease of native coronary artery without angina pectoris; J44.9 Chronic obstructive pulmonary disease, unspecified; K21.9 Gastro-esophageal reflux disease without esophagitis
CPT/HCPCS: 93306

== ENCOUNTER 2020-03-31 20:37 | Emergency (ER) | payer MEDICARE, SELFPAY ==
[2020-03-31 20:38] VITALS: BP 133/74; PULSE 70; RESP 20; TEMP 36.8; O2SAT 98; BMI 29.2
[2020-03-31 21:06] VITALS: BP 133/74; PULSE 70; RESP 20; TEMP 36.8; O2SAT 98
--- NOTE | 2020-03-31 21:18 | HMH.EDUTC ---
[facility] Disposition Clinical Impression: Impacted cerumen of right ear Disposition: Home, Self-Care Condition on Discharge: Good Instructions: DI for Cerumen Impaction Referrals: Liban Aguilera [Primary Care Provider] - Time of Disposition: 21:20 Medical Decision Making - Deonte Inquiry Pt receiving controlled substance: No Vital Signs: 03/31/20 20:38 03/31/20 21:06 Temperature 98.3 F 98.3 F Temperature Source Oral Pulse Rate 70 Pulse Rate [Brachial] 70 Respiratory Rate 20 20 Blood Pressure 133/74 Blood Pressure [Right Arm] 133/74 Blood Pressure Mean [Right Arm] 93 Blood Pressure Source [Right Arm] Automatic Cuff Blood Pressure Position [Right Arm] Sitting 02 Sat by Pulse Oximetry 98 Oxygen Delivery Method Room Air [facility] HPI - General Chief complaint: Ear Stated complaint: ear Time Seen by Provider: 03/31/20 21:19 Mode of Arrival: Family Vehicle Source of Information: Patient Limitations: No Limitations HEENT Symptoms (Recalled from RN notes): No Resp Symptoms (Recalled from RN notes): No Skin Symptoms (Recalled from RN notes): No MS Symptoms (Recalled from RN notes): No Functional Status (Recalled from RN notes): n/a - Related Data Home Medications Medication Instructions Recorded Confirmed Omeprazole [Omeprazole 40mg 40 mg PO DAILY 01/30/18 03/26/20 Capsule] Tamsulosin HCl [Flomax 0.4mg 0.4 mg PO HS 10/10/18 03/26/20 capsule] atenolol 25 mg tablet 25 mg PO DAILY tab 06/28/19 03/26/20 lisinopriL [Prinivil 5mg Tablet] 5 mg PO DAILY 08/07/19 03/26/20 finasteride 5 mg tablet 5 mg PO DAILY tab 03/05/20 03/26/20 simvastatin 40 mg tablet 40 mg PO DAILY tab 03/05/20 03/26/20 Previous Rx's Medication Instructions Recorded Aspirin [Aspirin 81mg EC Tab] 81 mg PO DAILY #30 tablet. 05/20/19 furosemide 20 mg tablet 20 mg PO DAILY #90 tab 10/08/19 potassium chloride 8 mEq 8 meq PO DAILY #90 tab 10/08/19 tablet,extended release Allergies Allergy/AdvReac Type Severity Reaction Status Date / Time codeine [CODEINE] Allergy Unknown Verified 03/26/20 09:54 - Worker's Comp Is this a Worker's Comp case?: No Is this an [facility] Worker's Comp?: No Is this a [facility] Worker's Comp?: No [facility] History - Hepatitis A Screen Drug use history?: No High risk sexual behaviors?: No History of sexually transmitted infection?: No Currently employed?: No Childcare worker?: No Do you have indoor plumbing?: No Do you have electricity?: No Attestation statement:: This patient has been screened for Hepatitis A risk factors. I have reviewed the patient's past medical history: Yes Medical History: Reports:: Atrial Fibrillation, Coronary Artery Disease, Gastroesophageal Reflux Disease(GERD), Hyperlipidemia, Hypertension Denies:: Cancer, Diabetes Mellitus Type 1, Diabetes Mellitus Type 2, Internal Pacemaker, Lung Disease, MRSA, Seizures Other Medical History: Reports: Arthritis, Other Comment: Fluid around lungs Other Surgeries: Yes: Other. No: Pacemaker Amputation: No Fractures: No Comment: Prostate surgery - Social History Smoking Status: Former smoker Tobacco Type: cigarettes # Packs/Day (cigarettes): 1 #Yrs smoked (if former smoker): 45 Alcohol Intake: never Alcohol Intake Frequency:: holidays/special occasions only Substance Use Type: denies use Occupational Status: retired Housing: house Household Members: none Family Hx:: Hyperlipidemia ROS Obtained: Yes Systems reviewed as appropriate & no additional complaints - Constitutional Constitutional: Reports system reviewed and no additional complaints, except as docu, Denies fatigue - Eyes Eyes: Reports system reviewed and no additional complaints, except as docu - ENT Ears, Nose, Mouth, and Throat: Reports system reviewed and no additional complaints, except as docu, Reports otalgia - Cardiovascular Cardiovascular: Reports system reviewed and no additional complaints, except as docu, Denies diaphoresis
== END 2020-03-31 21:36 | disposition home or self-care (01) ==
PROVIDERS: Emergency Provider Nurse Practitioner Family; PCP Internal Medicine
DX: H92.01 Otalgia, right ear (principal); H61.21 Impacted cerumen, right ear; E78.5 Hyperlipidemia, unspecified; I10 Essential (primary) hypertension; K21.9 Gastro-esophageal reflux disease without esophagitis; I48.20 Chronic atrial fibrillation, unspecified; I25.10 Atherosclerotic heart disease of native coronary artery without angina pectoris; Z88.5 Allergy status to narcotic agent; Z87.891 Personal history of nicotine dependence; Z79.899 Other long term (current) drug therapy
CPT/HCPCS: G0463; 99201

== ENCOUNTER 2020-05-16 08:46 | Outpatient (RCR) | payer MEDICARE, SELFPAY | END 2020-08-26 14:42 | disposition home or self-care (01) | LOC: PT 08:46 | PROVIDERS: Visit Provider Internal Medicine Pulmonary Disease | DX: J44.9 Chronic obstructive pulmonary disease, unspecified (principal) | CPT/HCPCS: G0424 ==

== ENCOUNTER 2020-07-15 12:35 | Emergency (ER) | payer MEDICARE, SELFPAY ==
[2020-07-15 14:06] VITALS: BP 108/56; PULSE 68; RESP 19; TEMP 36.9; O2SAT 96; BMI 27.3
--- NOTE | 2020-07-15 14:10 | PC.NURSE ---
Pt came up to the window and stated to this nurse that he would be back in a few minutes. Pt was called x4 and looked for in the main ER waiting room and no answer, Pt showed back up and came to window at 1350 and said he was back. Pt stated that he went home and took his bandage off and his laceration began to bleed so he decide to come back.
--- NOTE | 2020-07-15 14:59 | HMH.EDUTC ---
[facility] [place] Clinical Impression: Laceration Disposition: Home, Self-Care Condition on Discharge: Good Instructions: How to Care for a Laceration After Repair, DI for Laceration Repair Additional Instructions: You have required stitches today. Please read the following instructions so you know how to care for them: 1. Keep wound area dry for the first 24 hours. 2 May clean gently with mild soap and water, after 48 hours to prevent crusting over suture knots. 3. You may shower if your provider gives permission but do not take a bath until the skin is healed.. 4. Never leave a wet dressing or Band-Aid on your stitches as this allows bacteria to reach the area and may cause infection. Band-aids can cause the wound to sweat and not recommended to wear for long periods of time Watch for signs of infection: Increasing redness, tenderness or warmth around the suture site Unusual swelling around the site Appearance of pus around each suture or any red streaks Fever If you develop any of the above signs or symptoms of infection, Follow up with Family Physician immediately 5. Suture removal in _-12___days 6. Return to [facility] or follow up with family doctor for removal. This can be done by any medical provider during regular hours on Tuesday through Tuesday, by appointment. Referrals: Liban Aguilera [Primary Care Provider] - As needed Time of Disposition: 15:00 Medical Decision Making - Deonte Inquiry Pt receiving controlled substance: No Doente was queried for this patient: No Vital Signs: 07/15/20 14:06 Temperature 98.5 F Temperature Source Oral Pulse Rate [Left] 68 Respiratory Rate 19 Blood Pressure [Right Arm] 108/56 L Blood Pressure Mean [Right Arm] 73 Blood Pressure Source [Right Arm] Automatic Cuff Blood Pressure Position [Right Arm] Sitting 02 Sat by Pulse Oximetry 96 Oxygen Delivery Method Room Air Orders (Tests/Meds): ED MEDICATIONS Discontinued Medications Generic Name Dose Route Start Last Admin Trade Name Freq PRN Reason Stop Dose Admin Lidocaine HCl 5 ml 07/15/20 14:36 07/15/20 14:42 Lidocaine 1% 10ml Mdv SQ 07/15/20 14:37 5 ml ONCE ONE Administration Tetanus/Reduced Diphtheria/Acell Pertussis 0.5 ml 07/15/20 14:35 07/15/20 14:43 Tet/Diphth/Pert-Adult 0.5ml Syringe IM 07/15/20 14:36 0.5 ml .ONCE ONE Administration [facility] HPI - General Stated complaint: cut to left ring finger Time Seen by Provider: 07/15/20 14:59 Mode of Arrival: Ambulatory Source of Information: Patient Limitations: No Limitations Description of Symptoms (Recalled from Triage Doc. by RN): laceration to left 4th digit-cutting up potatoes HEENT Symptoms (Recalled from RN notes): No Resp Symptoms (Recalled from RN notes): No Skin Symptoms (Recalled from RN notes): Yes MS Symptoms (Recalled from RN notes): No Functional Status (Recalled from RN notes): stable - History of Present Illness Provider Complaint: Patient had come to [facility] due to he was cutting up potatoes earlier when the knife slipped and cut him on his left ring finger beside his finger nail States that he came to the [facility] then realized he did not lock his door at home so he left and went back home, locked the door and came back - Related Data Home Medications Medication Instructions Recorded Confirmed Omeprazole [Omeprazole 40mg 40 mg PO DAILY 01/30/18 05/07/20 Capsule] Tamsulosin HCl [Flomax 0.4mg 0.4 mg PO HS 10/10/18 05/07/20 capsule] atenolol 25 mg tablet 25 mg PO DAILY tab 06/28/19 05/07/20 lisinopriL [Prinivil 5mg Tablet] 5 mg PO DAILY 08/07/19 05/07/20 finasteride 5 mg tablet 5 mg PO DAILY tab 03/05/20 05/07/20 simvastatin 40 mg tablet 40 mg PO DAILY tab 03/05/20 05/07/20 cetirizine 10 mg capsule 10 mg PO DAILY cap 05/07/20 05/07/20 fluticasone propionate 50 spray INTRANASAL 05/07/20 05/07/20 mcg/actuation nasal spray,suspension umeclidinium 62.5 mcg-vilanterol 1 inh INHALATION DAILY 05/07/20
[2020-07-15 15:04] VITALS: BP 108/56; PULSE 68; RESP 19; TEMP 36.9; O2SAT 96
== END 2020-07-15 15:10 | disposition home or self-care (01) ==
PROVIDERS: Emergency Provider Nurse Practitioner; PCP Internal Medicine
DX: S61.215A Laceration without foreign body of left ring finger without damage to nail, initial encounter (principal); Z23 Encounter for immunization; I25.10 Atherosclerotic heart disease of native coronary artery without angina pectoris; I48.0 Paroxysmal atrial fibrillation; I10 Essential (primary) hypertension; K21.9 Gastro-esophageal reflux disease without esophagitis; E78.5 Hyperlipidemia, unspecified; Z88.5 Allergy status to narcotic agent; Z87.891 Personal history of nicotine dependence; Z79.899 Other long term (current) drug therapy
CPT/HCPCS: 12001; G0463; 90471; 90715; 96372; 99201

== ENCOUNTER → 2020-09-16 09:35 | Outpatient (CLI) | payer MEDICARE, SELFPAY ==
[2020-09-17 09:06] LABS: Covid-19 Nasal PCR Sendout P&C NEGATIVE
== END ==
PROVIDERS: PCP Internal Medicine; Visit Provider Internal Medicine
DX: Z11.52 Encounter for screening for COVID-19 (principal)
CPT/HCPCS: U0004

== ENCOUNTER → 2020-10-27 09:52 | Outpatient (CLI) | payer MEDICARE, SELFPAY ==
[2020-10-27 10:30] VITALS: PULSE 65; PULSE 71
== END ==
PROVIDERS: PCP Internal Medicine; Visit Provider Internal Medicine Pulmonary Disease
DX: J44.9 Chronic obstructive pulmonary disease, unspecified (principal)
CPT/HCPCS: 94060; 94640

== ENCOUNTER → 2020-10-30 08:37 | Outpatient (POV) | payer MEDICARE, SELFPAY | PROVIDERS: Visit Provider Audiologist | DX: Z00.00 Encounter for general adult medical examination without abnormal findings (principal) ==

== ENCOUNTER → 2020-11-20 08:44 | Outpatient (POV) | payer MEDICARE, SELFPAY | PROVIDERS: Visit Provider Audiologist | DX: Z00.00 Encounter for general adult medical examination without abnormal findings (principal) ==

== ENCOUNTER → 2020-12-15 07:19 | Outpatient (CLI) | payer MEDICARE, SELFPAY ==
[2020-12-15 08:56] LABS: Coronavirus 19 IgG Antibody Positive (Negative); Coronavirus 19 IgM Antibody Negative (Negative)
== END ==
PROVIDERS: Visit Provider Ophthalmology
DX: Z01.812 Encounter for preprocedural laboratory examination (principal); Z20.822 Contact with and (suspected) exposure to COVID-19; H25.11 Age-related nuclear cataract, right eye
CPT/HCPCS: 36415; 86328

== ENCOUNTER 2020-12-16 08:57 | Day surgery (SDC) | payer MEDICARE, SELFPAY ==
[2020-12-09 14:43] VITALS: BMI 29.2
[2020-12-16 09:49] VITALS: BP 108/62; PULSE 57; RESP 18; TEMP 36.3; O2SAT 96
[2020-12-16 10:58] VITALS: BP 125/67; PULSE 59; RESP 18; TEMP 36.5; O2SAT 98
== END 2020-12-16 11:00 | disposition home or self-care (01) ==
LOC: OUTP 08:58
PROVIDERS: PCP Internal Medicine; Visit Provider Ophthalmology
PROC: (CPT 66821; principal; 2020-12-16 09:30)
DX: H26.491 Other secondary cataract, right eye (principal); Z96.1 Presence of intraocular lens; Z79.899 Other long term (current) drug therapy; J44.9 Chronic obstructive pulmonary disease, unspecified; I25.10 Atherosclerotic heart disease of native coronary artery without angina pectoris; K21.9 Gastro-esophageal reflux disease without esophagitis; E78.5 Hyperlipidemia, unspecified; I51.89 Other ill-defined heart diseases; Z88.6 Allergy status to analgesic agent; Z88.8 Allergy status to other drugs, medicaments and biological substances; Z79.82 Long term (current) use of aspirin
CPT/HCPCS: 66821

== ENCOUNTER → 2021-02-06 11:17 | Outpatient (CLI) | payer MEDICARE, SELFPAY ==
--- NOTE | 2021-02-06 | ECG_ITS ---
APPROVED REPORT Exam: Resting ECG HR:55 bpm ECG Measurements Heart Rate 55 AXES AK 136 P 62 QRSd 88 QRS 46 QT 426 T 38 QTc 407 Conclusion Sinus bradycardia Otherwise normal ECG Electronically signed by : Liban Aguilera, 02/06/2021 11:41:18
== END ==
PROVIDERS: PCP Internal Medicine; Visit Provider Internal Medicine
DX: R07.9 Chest pain, unspecified (principal)
CPT/HCPCS: 93005

== ENCOUNTER 2021-03-20 07:27 | Emergency (ER) | payer MEDICARE, SELFPAY ==
[2021-03-20 07:29] VITALS: BP 140/86; PULSE 93; RESP 18; TEMP 38.2; O2SAT 94; BMI 28.3
--- NOTE | 2021-03-20 07:51 | ECG_ITS ---
APPROVED REPORT Exam: Resting ECG HR:87 bpm ECG Measurements Heart Rate 87 AXES NC 140 P 71 QRSd 88 QRS 46 QT 348 T 53 QTc 418 Conclusion Normal sinus rhythm Normal ECG Electronically signed by : Ren Ortiz, 03/20/2021 21:35:00
--- NOTE | 2021-03-20 07:51 | XR_ITS ---
PROCEDURE: XR CHEST 2V CLINICAL HISTORY: soa COMPARISON: CT CTAC CTA-CHEST from 05/04/2016 CR CXR2V XR chest 2V from 09/06/2018 CR XR CHEST 2V from 04/17/2019 CR XR CHEST 2V from 05/19/2019 FINDINGS: The cardiomediastinal silhouette and pulmonary vascularity are within normal limits. Increased density is present in the left perihilar region and left lower lobe consistent with left-sided pneumonia. No obvious effusion. No acute bony abnormalities. IMPRESSION: Left perihilar and left lower lobe pneumonia Dictated by: Isidoro Rooney MD 03/20/2021 08:22 Isidoro Rooney MD in [place] 03/20/2021 08:22
[2021-03-20 08:02] LABS: Coronavirus 19, PCR Not Detected (NotDetected); Influenza A, PCR Not Detected (NotDetected); Influenza B, PCR Not Detected (NotDetected)
[2021-03-20 08:06] LABS: Basophils % 0.3 % (0.1-2.0); Eosinophils # 0.1 K/mm3 (0.0-0.4); Eosinophils % 0.7 % (0.1-12.0); Hematocrit 39.5 % (42.0-52.0); Hemoglobin 13.4 g/dL (14.1-18.0); Lymphocytes # 0.7 K/mm3 (0.7-4.5); Lymphocytes % 5.1 % (10-50); Mean Corpuscular Hemoglobin 29.3 pg (27.0-31.2); Mean Corpuscular Volume 86.4 fl (80-94); Monocytes # 0.5 K/mm3 (0.1-1.0); Monocytes % 3.9 % (1.7-9.3); Platelet Count 213 K/mm3 (142-424); Red Blood Count 4.58 M/mm3 (4.60-6.20); Red Cell Distribution Width 13.8 % (11.5-17.5); White Blood Count 13.3 K/mm3 (4.8-10.8)
--- NOTE | 2021-03-20 08:08 | HMH.EDGENADL ---
ED Disposition Clinical Impression: Community acquired pneumonia Qualifiers: Laterality: left Lung location: unspecified part of lung Qualified Code(s): J18.9 - Pneumonia, unspecified organism Disposition: Home, Self-Care Condition on Discharge: Fair Instructions: DI for Pneumonia -- Adult Additional Instructions: Omnicef and Zithromax as prescribed. Close follow-up with your primary care provider, call today to make an appointment to be seen early next week. Additional instructions for PNEUMONIA: Take antibiotics as prescribed. See your physician as soon as possible for further evaluation. Return immediately if you have an uncontrollable fever greater than 102 degrees, difficulty breathing or shortness of breath, persistent vomiting, or severe chest pain. Prescriptions: Cefdinir [Omnicef 300mg Capsule] 300 mg PO BID #20 cap Transmission Status: Pending to [facility] Azithromycin [Zithromax 250mg tab] 250 mg PO DAILY #4 tab Transmission Status: Pending to [facility] Referrals: Liban Aguilera [Primary Care Provider] - - Critical Care Critical Care Time: No Attestation: On 03/20/21, the high probability of a clinically significant, sudden or life threatening deterioration of the following system(s) required my full and direct attention, intervention and personal management. The time I documented below is in addition to time spent performing reported procedures but includes the following listed in this critical care notation. Medical Decision Making - Deonte Inquiry Pt receiving controlled substance: No Vital Signs: 03/20/21 07:29 03/20/21 08:29 03/20/21 08:30 Temperature 100.7 F H Temperature Source Oral Pulse Rate 82 78 Pulse Rate [Left Radial] 93 H Respiratory Rate 18 20 Blood Pressure 115/71 137/72 Blood Pressure [Right Arm] 140/86 Blood Pressure Mean 96 Blood Pressure Mean [Right Arm] 104 Blood Pressure Source Automatic Cuff Blood Pressure Source [Right Arm] Automatic Cuff Blood Pressure Position Sitting Blood Pressure Position [Right Arm] Sitting 02 Sat by Pulse Oximetry 94 L 93 L 94 L Oxygen Delivery Method Room Air 03/20/21 09:00 Temperature Temperature Source Pulse Rate 83 Pulse Rate [Left Radial] Respiratory Rate 20 Blood Pressure 112/63 Blood Pressure [Right Arm] Blood Pressure Mean 79 Blood Pressure Mean [Right Arm] Blood Pressure Source Blood Pressure Source [Right Arm] Blood Pressure Position Blood Pressure Position [Right Arm] 02 Sat by Pulse Oximetry 94 L Oxygen Delivery Method - Lab Data Lab Results 03/20/21 07:40: WBC 13.3 H, RBC 4.58 L, Hgb 13.4 L, Hct 39.5 L, MCV 86.4, MCH 29.3, MCHC 34.0, RDW 13.8, Plt Count 213, MPV 7.0 L, Neut % (Auto) 90.0 H, Lymph % (Auto) 5.1 L, [place] % (Auto) 3.9, Eos % (Auto) 0.7, Baso % (Auto) 0.3, Neut # (Auto) 12.0 H, Lymph # (Auto) 0.7, [place] # (Auto) 0.5, Eos # (Auto) 0.1, Baso # (Auto) 0.0, Total Counted 100, Neutrophils % (Manual) 82 H, Band Neutrophils % 11.0 H, Lymphocytes % (Manual) 5 L, Monocytes % (Manual) 1 L, Basophils % (Manual) 1.0, Platelet Estimate Normal, RBC Morphology Normal 03/20/21 07:40: Sodium 136, Potassium 3.9, Chloride 103, Carbon Dioxide 26, Anion Gap 10.9, BUN 22 H, Creatinine 0.90, Estimated Creat Clear 70, Estimated GFR 81, Est GFR ( Amer) 98, Glucose 107 H, Calcium 8.9, Troponin I < 0.01 03/20/21 07:40: Lactate 1.2 03/20/21 07:40: SARS-CoV-2 (PCR) Not detected, Influenza A Untype (PCR) Not detected, Influenza Type B (PCR) Not detected Result diagrams: 03/20/21 07:40 03/20/21 07:40 Orders (Tests/Meds): ED MEDICATIONS Generic Name Dose Route Start Last Admin Trade Name Freq PRN Reason Stop Dose Admin Ceftriaxone Sodium 1 gm/ 50 mls @ 100 mls/hr 03/20/21 08:30 03/20/21 08:29 Sodium Chloride IV 04/03/21 08:29 100 mls/hr Q24H TATYANA Administration Protocol Azithromycin 500 mg/ Sodium 250 mls @ 250 mls/hr 03/20/21 08:30 03/20/21 08
[2021-03-20 08:10] LABS: Anion Gap 10.9 mEq/L (5-15); Blood Urea Nitrogen 22 mg/dl (9-20); Calcium 8.9 mg/dl (8.4-10.2); Carbon Dioxide 26 mmol/L (22.0-30.0); Chloride 103 mmol/L (98-107); Creatinine Clearance Estimated 70 mL/min (50-200); Estimated Glomerular Filt Rate 81 ml/min (>60); GFR (African American) 98 ML/MIN (>60); Glucose 107 mg/dl (74-100); Potassium 3.9 mmoL/L (3.5-5.1); Sodium 136 mmol/L (136-145)
[2021-03-20 08:12] LABS: MANUAL DIFFERENTIAL MANUAL DIFFERENTIAL (MANUAL DIFF)
[2021-03-20 08:14] LABS: Lactic Acid 1.2 mmol/L (0.7-2.1)
[2021-03-20 08:23] LABS: Lymphocytes % 5 % (10-50); Monocytes % 1 % (2-9); Neutrophils % 82 % (42-76); Platelet Estimate Normal; RBC Morphology Normal; Total Cells Counted 100
[2021-03-20 08:26] LABS: Troponin I < 0.01 ng/ml (0.00-0.034)
[2021-03-20 08:29] VITALS: BP 115/71; PULSE 82; O2SAT 93
[2021-03-20 08:30] VITALS: BP 137/72; PULSE 78; RESP 20; O2SAT 94
[2021-03-20 09:00] VITALS: BP 112/63; PULSE 83; RESP 20; O2SAT 94
[2021-03-20 09:47] VITALS: BP 125/68; PULSE 71; RESP 18; TEMP 37.6; O2SAT 95
== END 2021-03-20 09:48 | disposition home or self-care (01) ==
PROVIDERS: Emergency Provider Emergency Medicine; PCP Internal Medicine
DX: J18.9 Pneumonia, unspecified organism (principal); J44.9 Chronic obstructive pulmonary disease, unspecified; I48.91 Unspecified atrial fibrillation; K21.9 Gastro-esophageal reflux disease without esophagitis; E78.5 Hyperlipidemia, unspecified; I10 Essential (primary) hypertension; Z20.822 Contact with and (suspected) exposure to COVID-19; Z87.891 Personal history of nicotine dependence; Z79.899 Other long term (current) drug therapy
CPT/HCPCS: 71046; 80048; 83605; 84484; 85007; 85025; 87040; 93005; 96365; 96375; 99284; J0456; U0003

== ENCOUNTER → 2021-05-30 08:35 | Outpatient (CLI) | payer MEDICARE, SELFPAY | PROVIDERS: Visit Provider Ophthalmology | DX: Z01.812 Encounter for preprocedural laboratory examination (principal); Z20.822 Contact with and (suspected) exposure to COVID-19 | CPT/HCPCS: C9803; U0003; U0005 ==

== ENCOUNTER 2021-06-02 08:54 | Day surgery (SDC) | payer MEDICARE, SELFPAY ==
[2021-06-02 09:09] VITALS: BP 152/88; PULSE 66; RESP 18; TEMP 36.1; O2SAT 97; BMI 27.3
[2021-06-02 09:52] VITALS: BP 127/70; PULSE 58; RESP 18; TEMP 36.7; O2SAT 95
== END 2021-06-02 09:58 | disposition home or self-care (01) ==
LOC: OUTP 08:56
PROVIDERS: PCP Internal Medicine; Visit Provider Ophthalmology
PROC: (CPT 66821; principal; 2021-06-02 09:30)
DX: H26.492 Other secondary cataract, left eye (principal); Z96.1 Presence of intraocular lens; K21.9 Gastro-esophageal reflux disease without esophagitis; I25.10 Atherosclerotic heart disease of native coronary artery without angina pectoris; J44.9 Chronic obstructive pulmonary disease, unspecified; E78.5 Hyperlipidemia, unspecified; Z88.6 Allergy status to analgesic agent; Z88.8 Allergy status to other drugs, medicaments and biological substances; Z79.82 Long term (current) use of aspirin; Z79.51 Long term (current) use of inhaled steroids; Z79.899 Other long term (current) drug therapy
CPT/HCPCS: 66821

== ENCOUNTER 2021-06-06 19:13 | Emergency (ER) | payer MEDICARE, SELFPAY ==
[2021-06-06 19:15] VITALS: BP 154/49; PULSE 69; RESP 24; TEMP 36.6; O2SAT 97; BMI 28.3
--- NOTE | 2021-06-06 19:42 | HMH.EDUTC ---
[facility] [place] Disposition Clinical Impression: Impacted cerumen of left ear Disposition: Home, Self-Care Condition on Discharge: Good Instructions: Cerumen Impaction Prescriptions: Carbamide Peroxide [Debrox] 5 drops OT DAILY 5 Days #5 ml Transmission Status: Pending to [facility] Referrals: Liban Aguilera [Primary Care Provider] - Time of Disposition: 19:47 Medical Decision Making - Deonte Inquiry Pt receiving controlled substance: No Vital Signs: 06/06/21 19:15 Temperature 97.9 F Temperature Source Oral Pulse Rate [Right Brachial] 69 Respiratory Rate 24 Blood Pressure [Right Arm] 154/49 H Blood Pressure Mean [Right Arm] 84 Blood Pressure Source [Right Arm] Automatic Cuff Blood Pressure Position [Right Arm] Sitting 02 Sat by Pulse Oximetry 97 Oxygen Delivery Method Room Air [facility] [place] HPI - General Chief complaint: Urgent Treatment Center Stated complaint: left ear pain Time Seen by Provider: 06/06/21 19:43 Mode of Arrival: Ambulatory Source of Information: Patient Limitations: No Limitations Description of Symptoms (Recalled from Triage Doc. by RN): PATIENT C/O LEFT EAR PAIN THAT STARTED THIS AFTERNOON. DENIES ANY HEARING CHANGES OR DIZZINESS HEENT Symptoms (Recalled from RN notes): Yes Resp Symptoms (Recalled from RN notes): No Skin Symptoms (Recalled from RN notes): No MS Symptoms (Recalled from RN notes): No Functional Status (Recalled from RN notes): WNL - History of Present Illness Provider Complaint: 80 yr old male presents for left ear pain. pt states he has problems with wax - Related Data Home Medications Medication Instructions Recorded Confirmed Omeprazole [Omeprazole 40mg 40 mg PO DAILY 01/30/18 06/02/21 Capsule] Tamsulosin HCl [Flomax 0.4mg 0.4 mg PO HS 10/10/18 06/02/21 capsule] atenolol 25 mg tablet 25 mg PO DAILY tab 06/28/19 06/02/21 finasteride 5 mg tablet 5 mg PO DAILY tab 03/05/20 06/02/21 simvastatin 40 mg tablet 40 mg PO DAILY tab 03/05/20 06/02/21 cetirizine 10 mg capsule 10 mg PO DAILY cap 05/07/20 06/02/21 fluticasone propionate 50 50 spray INTRANASAL DAILY 05/07/20 06/02/21 mcg/actuation nasal spray,suspension Aspirin [Aspirin 81mg EC Tab] 81 mg PO DAILY 12/09/20 06/02/21 Budesonide 0.25 mg INHALATION BID 12/09/20 06/02/21 Furosemide [Furosemide 20mg Tab*] 20 mg PO DAILY 12/09/20 06/02/21 Ipratropium/Albuterol Sulfate 3 ml INHALATION .q12 12/09/20 06/02/21 [Iprat-Albut 0.5-3(2.5) mg/3 ml] Previous Rx's Medication Instructions Recorded potassium chloride 8 mEq 8 meq PO DAILY #90 tab 07/09/20 tablet,extended release albuterol sulfate 1.25 mg/3 mL 1.25 mg INHALATION QID PRN #90 ml 11/04/20 solution for nebulization albuterol sulfate 90 mcg/actuation 1 inh INHALATION QID PRN #8.5 g 11/06/20 aerosol inhaler Carbamide Peroxide [Debrox] 5 drops OT DAILY 5 Days #5 ml 06/06/21 Allergies Allergy/AdvReac Type Severity Reaction Status Date / Time codeine [CODEINE] Allergy Unknown na Verified 06/02/21 09:04 diphenhydramine Allergy na Verified 06/02/21 09:04 [From Benadryl] - Worker's Comp Is this a Worker's Comp case?: No [facility] History - Hepatitis A Screen Drug use history?: No High risk sexual behaviors?: No History of sexually transmitted infection?: No Currently employed?: No Childcare worker?: No Do you have indoor plumbing?: Yes Do you have electricity?: Yes Attestation statement:: This patient has been screened for Hepatitis A risk factors. I have reviewed the patient's past medical history: Yes Medical History: Reports:: Atrial Fibrillation, Coronary Artery Disease, Gastroesophageal Reflux Disease(GERD), Hyperlipidemia, Hypertension Denies:: Cancer, Diabetes Mellitus Type 1, Diabetes Mellitus Type 2, Internal Pacemaker, Lung Disease, MRSA, Seizures Other Medical History: Reports: Arthritis, Other Comment: Fluid around lungs Other Surgeries: Yes: Other. No: Pacemaker Amputation: No Fractures: No Co
[2021-06-06 20:04] VITALS: BP 154/49; PULSE 69; RESP 24; TEMP 36.6; O2SAT 97
== END 2021-06-06 20:07 | disposition home or self-care (01) ==
PROVIDERS: Emergency Provider Nurse Practitioner Family; PCP Internal Medicine
DX: H92.02 Otalgia, left ear (principal); H61.22 Impacted cerumen, left ear; I25.10 Atherosclerotic heart disease of native coronary artery without angina pectoris; I48.0 Paroxysmal atrial fibrillation; E78.5 Hyperlipidemia, unspecified; K21.9 Gastro-esophageal reflux disease without esophagitis; Z87.891 Personal history of nicotine dependence
CPT/HCPCS: 99202; G0463

== ENCOUNTER → 2021-06-26 09:40 | Outpatient (CLI) | payer MEDICARE, SELFPAY ==
--- NOTE | 2021-06-26 09:45 | XR_ITS ---
PROCEDURE: XR HIP LT 2-3V W/PELVIS CLINICAL INDICATION: LT GROIN AND LT HIP PAIN COMPARISON: CR XR HIP LT 2-3V W/PELVIS from 06/06/2019 FINDINGS: No fracture or dislocation. No lytic or blastic change. There are moderate osteoarthritic changes of the left hip and mild osteoarthritic change of the right hip. Osteoarthritis has progressed compared to 06/06/2019. IMPRESSION: Moderate osteoarthritic changes of the left hip progressed since the previous exam Dictated by: Isidoro Rooney MD 06/26/2021 10:32 Isidoro Rooney MD in [place] 06/26/2021 10:32
== END ==
PROVIDERS: PCP Internal Medicine; Visit Provider Internal Medicine
DX: M25.552 Pain in left hip (principal); R10.2 Pelvic and perineal pain
CPT/HCPCS: 73502

== ENCOUNTER → 2021-08-10 15:04 | Outpatient (CLI) | payer MEDICARE, SELFPAY ==
--- NOTE | 2021-08-10 15:08 | XR_ITS ---
PROCEDURE: XR HAND RT MIN 3V CLINICAL INDICATION: RT HAND PAIN COMPARISON: No exams were available for comparison FINDINGS: No fracture or dislocation. No lytic or blastic change. There is normal mineralization. There are mild osteoarthritic changes at the 1st metacarpal-carpal joint and the 1st interphalangeal joint. Mild osteoarthritic change at the scapho trapezium joint. Mild osteoarthritis 2nd and 3rd DIP joints Other findings:None. IMPRESSION: Osteoarthritic changes otherwise negative Dictated by: Isidoro Rooney MD 08/10/2021 16:18 Isidoro Rooney MD in [place] 08/10/2021 16:18
== END ==
PROVIDERS: PCP Internal Medicine; Visit Provider Internal Medicine
DX: M79.641 Pain in right hand (principal)
CPT/HCPCS: 73130

== ENCOUNTER → 2021-08-26 11:58 | Outpatient (CLI) | payer MEDICARE, SELFPAY | PROVIDERS: PCP Internal Medicine; Visit Provider Nurse Practitioner | DX: U07.1 COVID-19 (principal) | CPT/HCPCS: C9803; U0003; U0005 ==

== ENCOUNTER 2021-08-26 21:15 | Emergency (ER) | payer MEDICARE, SELFPAY ==
[2021-08-26 21:27] VITALS: BP 00/00; PULSE 0; RESP 0; TEMP -17.7; TEMP 0
== END 2021-08-26 21:27 | disposition left against medical advice (07) ==
LOC: ER 21:57
PROVIDERS: Emergency Provider Emergency Medicine; PCP Internal Medicine
DX: Z20.822 Contact with and (suspected) exposure to COVID-19 (principal)
CPT/HCPCS: G0463; 99211; C9803; U0003; U0005

== ENCOUNTER → 2021-08-30 07:59 | Outpatient (CLI) | payer MEDICARE, SELFPAY ==
[2021-08-30] VITALS (7 sets, daily range): BP systolic 133–145; BP diastolic 67–86; PULSE 65–78; RESP 18; TEMP 36.8; O2SAT 92–95
== END ==
PROVIDERS: PCP Internal Medicine; Visit Provider Internal Medicine
DX: U07.1 COVID-19 (principal); Z23 Encounter for immunization
CPT/HCPCS: 96365

== ENCOUNTER → 2021-09-22 23:04 | Outpatient (CLI) | payer MEDICARE, SELFPAY ==
[2021-09-22 23:13] LABS: Basophils % 0.3 % (0.1-2.0); Eosinophils # 0.1 K/mm3 (0.0-0.4); Hematocrit 44.1 % (42.0-52.0); Hemoglobin 14.1 g/dL (14.1-18.0); Lymphocytes # 1.9 K/mm3 (0.7-4.5); Lymphocytes % 19.4 % (10-50); Mean Corpuscular HGB Conc 31.9 g/dL (31.8-35.4); Mean Corpuscular Hemoglobin 29.5 pg (27.0-31.2); Mean Corpuscular Volume 92.6 fl (80-94); Mean Platelet Volume 9.7 fl (7.4-10.4); Monocytes # 0.7 K/mm3 (0.1-1.0); Monocytes % 7.2 % (1.7-9.3); Neutrophils # 6.9 K/mm3 (1.8-7.8); Neutrophils % 72.1 % (37.0-80.0); Platelet Count 79 K/mm3 (142-424); Red Blood Count 4.77 M/mm3 (4.60-6.20); Red Cell Distribution Width 14.4 % (11.5-17.5); White Blood Count 9.5 K/mm3 (4.8-10.8)
[2021-09-22 23:36] LABS: Alanine Aminotransferase 32 U/L (12-78); Albumin Level 3.8 g/dl (3.5-5.0); Albumin/Globulin Ratio 1.7 (1.1-1.8); Alkaline Phosphatase 72 U/L (38-126); Anion Gap 11.2 mEq/L (5-15); Aspartate Amino Transferase 39 U/L (17-59); Bilirubin,Total 0.8 mg/dl (0.2-1.3); Blood Urea Nitrogen 22 mg/dl (9-20); Calcium 8.7 mg/dl (8.4-10.2); Carbon Dioxide 27 mmol/L (22.0-30.0); Chloride 101 mmol/L (98-107); Chol/HDL Ratio 2.8 (1-3.5); Cholesterol 157 mg/dl (140-200); Estimated Glomerular Filt Rate 81 ml/min (>60); GFR (African American) 98 ML/MIN (>60); Globulin 2.2 g/dL (1.3-3.2); Glucose 59 mg/dl (74-100); HDL Cholesterol 56 mg/dl (40-60); Potassium 4.2 mmoL/L (3.5-5.1); Sodium 135 mmol/L (136-145); Triglycerides 89 mg/dl (30-150); VLDL Cholesterol 18 mg/dL (0-40)
[2021-09-22 23:47] LABS: Direct LDL Cholesterol 79.24 mg/dL (100-129)
[2021-09-23 00:06] LABS: Prostate Specific Ag Screen 3.6 ng/ml (0.0-4.0)
== END ==
PROVIDERS: Visit Provider Internal Medicine
DX: I25.10 Atherosclerotic heart disease of native coronary artery without angina pectoris (principal); I10 Essential (primary) hypertension; E78.5 Hyperlipidemia, unspecified; J44.9 Chronic obstructive pulmonary disease, unspecified; M15.0 Primary generalized (osteo)arthritis; N40.1 Benign prostatic hyperplasia with lower urinary tract symptoms; Z12.5 Encounter for screening for malignant neoplasm of prostate
CPT/HCPCS: 80053; 80061; 85025; G0103

== ENCOUNTER → 2021-10-23 13:53 | Outpatient (CLI) | payer MEDICARE, SELFPAY ==
[2021-10-23 15:52] LABS: Platelet Count 142 K/mm3 (142-424)
[2021-12-06 22:06] LABS: Miscellaneous Test Negative
== END ==
PROVIDERS: Visit Provider Internal Medicine
DX: D69.6 Thrombocytopenia, unspecified (principal); Z86.16 Personal history of COVID-19
CPT/HCPCS: 85049

== ENCOUNTER 2022-01-30 17:22 | Emergency (ER) | payer MEDICARE, SELFPAY ==
[2022-01-30 17:30] VITALS: BP 144/78; PULSE 72; RESP 18; TEMP 36.3; O2SAT 95; BMI 28.1
--- NOTE | 2022-01-30 17:37 | XR_ITS ---
PROCEDURE INFORMATION: Exam: XR Chest Exam date and time: 01/30/2022 5:34 PM Age: 81 years old Clinical indication: Pain; Cough; Chest pressure; Additional info: Rule out pneumonia TECHNIQUE: Imaging protocol: XR of the chest. Views: 2 views. COMPARISON: CR XR CHEST 2V 03/20/2021 7:55 AM FINDINGS: Lungs: Previously demonstrated patchy left perihilar and lower lobe infiltrates are no longer present. Pleural spaces: Unremarkable. No pleural effusion. No pneumothorax. Heart/Mediastinum: Unremarkable. No cardiomegaly. Bones/joints: Unremarkable. IMPRESSION: No evidence of acute cardiopulmonary disease.
--- NOTE | 2022-01-30 18:05 | HMH.EDUTC ---
[facility] [place] Disposition Clinical Impression: COPD exacerbation Disposition: Home, Self-Care Condition on Discharge: Good Instructions: DI for Chronic Obstructive Pulmonary Disease Additional Instructions: Follow up with Dr Aguilera if not improving Prescriptions: Albuterol Sulfate [Albuterol Sulfate Hfa] 2 % IH Q4HP PRN 30 Days #1 each PRN Reason: Shortness Of Breath Transmission Status: Pending to [facility] Benzonatate [Benzonatate 200mg Cap] 200 mg PO TID PRN 10 Days #30 cap PRN Reason: Cough Transmission Status: Pending to [facility] predniSONE [Deltasone 20mg tablet] 20 mg PO BID 30 Days #60 tab Transmission Status: Pending to [facility] Cetirizine HCl [Zyrtec 10mg Tab*] 10 mg PO DAILY 30 Days #30 tab Transmission Status: Pending to [facility] Referrals: Liban Aguilera MD [Primary Care Provider] - Time of Disposition: 18:18 Medical Decision Making - Deonte Inquiry Pt receiving controlled substance: No Vital Signs: 01/30/22 17:30 Temperature 97.4 F L Temperature Source Oral Pulse Rate [Left Brachial] 72 Respiratory Rate 18 Blood Pressure [Left Arm] 144/78 H Blood Pressure Mean [Left Arm] 100 Blood Pressure Source [Left Arm] Automatic Cuff Blood Pressure Position [Left Arm] Sitting 02 Sat by Pulse Oximetry 95 Oxygen Delivery Method Room Air - Radiology Data #1 Image(s): Chest Image Reviewed: Yes I have reviewed radiologist's interpretation Preliminary Findings: Normal/NAD PROCEDURE INFORMATION: Exam: XR Chest Exam date and time: 01/30/2022 5:34 PM Age: 81 years old Clinical indication: Pain; Cough; Chest pressure; Additional info: Rule out pneumonia TECHNIQUE: Imaging protocol: XR of the chest. Views: 2 views. COMPARISON: CR XR CHEST 2V 03/20/2021 7:55 AM FINDINGS: Lungs: Previously demonstrated patchy left perihilar and lower lobe infiltrates are no longer present. Pleural spaces: Unremarkable. No pleural effusion. No pneumothorax. Heart/Mediastinum: Unremarkable. No cardiomegaly. Bones/joints: Unremarkable. IMPRESSION: No evidence of acute cardiopulmonary disease. [facility] [place] HPI - General Stated complaint: cough, STOLL Time Seen by Provider: 01/30/22 18:05 Mode of Arrival: Ambulatory Source of Information: Patient Limitations: No Limitations Description of Symptoms (Recalled from Triage Doc. by RN): PATIENT C/O COUGH, SNEEZING, AND SORENESS/TIGHTNESS IN CHEST. HE STATES HE WAS SEEN BY PCP LAST WEEK AND TREATED FOR ALLERGIES HEENT Symptoms (Recalled from RN notes): Yes Resp Symptoms (Recalled from RN notes): Yes Skin Symptoms (Recalled from RN notes): No MS Symptoms (Recalled from RN notes): No Functional Status (Recalled from RN notes): WNL - History of Present Illness Provider Complaint: Patient has had cough, sneezing, tightness in chest for a little over a week. Saw Dr Aguilera at the beginning of the week and got a shot for allergies. Was taking Equate brand allergy medicine but ran out. Feels like he has mucous stuck in his throat. Has a history of COPD. Doesn't feel like his trelegy inhaler is helping as much as it did previously. Got very sick with pneumonia last fall and got a little worried and wanted to be checked out. Onset (ago): week(s) (1) Location: chest Relieving factors: none Exacerbating factors: none Associated symptoms: cough Treatments prior to arrival: none - Related Data Home Medications Medication Instructions Recorded Confirmed Omeprazole [Omeprazole 40mg 40 mg PO DAILY 01/30/18 12/04/21 Capsule] Tamsulosin HCl [Flomax 0.4mg 0.4 mg PO HS 10/10/18 12/04/21 capsule] atenolol 25 mg tablet 25 mg PO DAILY tab 06/28/19 12/04/21 finasteride 5 mg tablet 5 mg PO DAILY tab 03/05/20 06/02/21 simvastatin 40 mg tablet 40 mg PO DAILY tab 03/05/20 06/02/21 cetirizine 10 mg capsule 10 mg PO DAILY cap 05/07/20 12/04/21 flut
[2022-01-30 18:30] VITALS: BP 144/78; PULSE 72; RESP 18; TEMP 36.3; O2SAT 95
== END 2022-01-30 18:31 | disposition home or self-care (01) ==
PROVIDERS: Emergency Provider Physician Assistant; PCP Internal Medicine
DX: J44.1 Chronic obstructive pulmonary disease with (acute) exacerbation (principal); I48.91 Unspecified atrial fibrillation; K21.9 Gastro-esophageal reflux disease without esophagitis; I10 Essential (primary) hypertension; E78.5 Hyperlipidemia, unspecified; Z79.899 Other long term (current) drug therapy
CPT/HCPCS: 71046; 96372; 99213; G0463

== ENCOUNTER 2022-02-15 13:47 | Emergency (ER) | payer OTHER, MEDICARE, SELFPAY ==
[2022-02-15 13:54] VITALS: BP 173/84; PULSE 77; RESP 16; TEMP 36.6; O2SAT 93; BMI 28.8
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
--- NOTE | 2022-02-15 14:07 | PC.NURSE ---
pt to radiology via wheelchair
[2022-02-15 16:10] VITALS: BP 154/79; PULSE 78; RESP 16; TEMP 36.6; O2SAT 95
== END 2022-02-15 16:10 | disposition home or self-care (01) ==
PROVIDERS: Emergency Provider Emergency Medicine; PCP Internal Medicine
DX: S39.012A Strain of muscle, fascia and tendon of lower back, initial encounter (principal); S16.1XXA Strain of muscle, fascia and tendon at neck level, initial encounter; V89.2XXA Person injured in unspecified motor-vehicle accident, traffic, initial encounter; Z79.82 Long term (current) use of aspirin; Z88.6 Allergy status to analgesic agent; Z88.8 Allergy status to other drugs, medicaments and biological substances; I48.91 Unspecified atrial fibrillation; I25.10 Atherosclerotic heart disease of native coronary artery without angina pectoris; K21.9 Gastro-esophageal reflux disease without esophagitis; E78.5 Hyperlipidemia, unspecified; I10 Essential (primary) hypertension; M19.90 Unspecified osteoarthritis, unspecified site
CPT/HCPCS: 70450; 71045; 72100; 72125; 99284

== ENCOUNTER 2022-02-24 17:01 | Emergency (ER) | payer MEDICARE, SELFPAY ==
--- NOTE | 2022-02-24 17:01 | ECG_ITS ---
APPROVED REPORT Exam: Resting ECG HR:61 bpm ECG Measurements Heart Rate 61 AXES FL 134 P 55 QRSd 93 QRS 30 QT 374 T 47 QTc 378 Conclusion SINUS RHYTHM NORMAL ECG UNCONFIRMED REPORT Electronically signed by : Ren Ortiz MD 02/25/2022 08:25:21
[2022-02-24 17:04] VITALS: BP 173/90; PULSE 62; RESP 18; O2SAT 98; BMI 28.8
--- NOTE | 2022-02-24 17:06 | HMH.EDGENADL ---
ED Disposition Clinical Impression: Chest pain Qualifiers: Chest pain type: unspecified Qualified Code(s): R07.9 - Chest pain, unspecified Disposition: Home, Self-Care Condition on Discharge: Good Instructions: DI for Chest Pain Additional Instructions: See Dr. Mclean in his office tomorrow morning at 8:30 AM. Additional instructions for CHEST PAIN: Return immediately if worsening, more severe or prolonged chest pain, vomiting, shortness of breath, fever, coughing of blood. Referrals: Provider,Referral, MD [Referring] - - Critical Care Critical Care Time: No Attestation: On , the high probability of a clinically significant, sudden or life threatening deterioration of the following system(s) required my full and direct attention, intervention and personal management. The time I documented below is in addition to time spent performing reported procedures but includes the following listed in this critical care notation. Medical Decision Making - Deonte Inquiry Pt receiving controlled substance: No Vital Signs: 02/24/22 17:04 02/24/22 18:00 02/24/22 18:30 Pulse Rate 69 58 L Pulse Rate [Right Brachial] 62 Respiratory Rate 18 24 Blood Pressure 178/91 H 160/84 H Blood Pressure [Right Arm] 173/90 H Blood Pressure Mean 120 124 Blood Pressure Mean [Right Arm] 117 02 Sat by Pulse Oximetry 98 98 96 Oxygen Delivery Method Room Air - Lab Data Lab Results 02/24/22 17:11: WBC 13.9 H, RBC 4.98, Hgb 14.5, Hct 45.0, MCV 90.3, MCH 29.1, MCHC 32.3, RDW 15.0, Plt Count 237, MPV 7.3 L, Neut % (Auto) 83.8 H, Lymph % (Auto) 10.9, Redwood % (Auto) 3.5, Eos % (Auto) 1.0, Baso % (Auto) 0.8, Neut # (Auto) 11.6 H, Lymph # (Auto) 1.5, Redwood # (Auto) 0.5, Eos # (Auto) 0.1, Baso # (Auto) 0.1 02/24/22 17:11: Sodium 134 L, Potassium 4.4, Chloride 103, Carbon Dioxide 24, Anion Gap 11.4, BUN 33 H, Creatinine 1.10, Estimated Creat Clear 64, Estimated GFR 64, Est GFR ( Amer) 78, Glucose 159 H, Calcium 8.5, Troponin I < 0.01 02/24/22 17:11: Total Bilirubin 0.7, Direct Bilirubin 0.1, Conjugated Bilirubin 0.0, Indirect Bilirubin 0.6, Unconjugated Bilirubin 0.6, AST 40, ALT 49, Alkaline Phosphatase 60, Total Protein 6.2 L, Albumin 3.6, Lipase 210 Result diagrams: 02/24/22 17:11 02/24/22 17:11 Orders (Tests/Meds): ED MEDICATIONS Discontinued Medications Generic Name Dose Route Start Last Admin Trade Name Freq PRN Reason Stop Dose Admin Aspirin 243 mg 02/24/22 17:53 02/24/22 17:54 Aspirin 81mg Chewable Tablet PO 02/24/22 17:54 243 mg ONCE ONE Administration Ticagrelor 180 mg 02/24/22 18:54 Ticagrelor 90mg Tablet PO 02/24/22 18:55 ONCE ONE ORDERS Category Date Time Status Troponin I Q3H Lab 02/24/22 20:15 Ordered Troponin I Q3H Lab 02/24/22 23:15 Ordered - Radiology Data #1 Image(s): Chest Image Reviewed: Yes I reviewed the patient's radiology image, Yes I have reviewed radiologist's interpretation PROCEDURE INFORMATION: Exam: XR Chest Exam date and time: 02/24/2022 5:19 PM Age: 81 years old Clinical indication: Sternal or substernal pain; Additional info: Chest pain TECHNIQUE: Imaging protocol: Radiologic exam of the chest. Views: 2 views. COMPARISON: CR XR CHEST PORTABLE 02/15/2022 2:05 PM FINDINGS: Airway: Patent Lungs: Mild pulmonary vascular congestion. No acute interstitial or airspace disease. 1 cm nodule in the left lung base, most probably a nipple shadow. Pleural spaces: Unremarkable. No pleural effusion. No pneumothorax. Heart/Mediastinum: Unremarkable. No cardiomegaly. Bones/joints: No acute skeletal abnormality or aggressive osseous lesion. IMPRESSION: 1. No acute thoracic pathology. 2. 1 cm nodule in the left lung base, most probably a nipple shadow. Consider correlation with follow-up films with nipple markers. - ECG Data
--- NOTE | 2022-02-24 17:12 | XR_ITS ---
PROCEDURE INFORMATION: Exam: XR Chest Exam date and time: 02/24/2022 5:19 PM Age: 81 years old Clinical indication: Sternal or substernal pain; Additional info: Chest pain TECHNIQUE: Imaging protocol: Radiologic exam of the chest. Views: 2 views. COMPARISON: CR XR CHEST PORTABLE 02/15/2022 2:05 PM FINDINGS: Airway: Patent Lungs: Mild pulmonary vascular congestion. No acute interstitial or airspace disease. 1 cm nodule in the left lung base, most probably a nipple shadow. Pleural spaces: Unremarkable. No pleural effusion. No pneumothorax. Heart/Mediastinum: Unremarkable. No cardiomegaly. Bones/joints: No acute skeletal abnormality or aggressive osseous lesion. IMPRESSION: 1. No acute thoracic pathology. 2. 1 cm nodule in the left lung base, most probably a nipple shadow. Consider correlation with follow-up films with nipple markers.
[2022-02-24 17:19] LABS: Basophils # 0.1 K/mm3 (0-0.2); Basophils % 0.8 % (0.1-2.0); Eosinophils # 0.1 K/mm3 (0.0-0.4); Hemoglobin 14.5 g/dL (14.1-18.0); Lymphocytes # 1.5 K/mm3 (0.7-4.5); Lymphocytes % 10.9 % (10-50); Mean Corpuscular HGB Conc 32.3 g/dL (31.8-35.4); Mean Corpuscular Hemoglobin 29.1 pg (27.0-31.2); Mean Corpuscular Volume 90.3 fl (80-94); Mean Platelet Volume 7.3 fl (7.4-10.4); Monocytes # 0.5 K/mm3 (0.1-1.0); Monocytes % 3.5 % (1.7-9.3); Neutrophils # 11.6 K/mm3 (1.8-7.8); Neutrophils % 83.8 % (37.0-80.0); Platelet Count 237 K/mm3 (142-424); Red Blood Count 4.98 M/mm3 (4.60-6.20); White Blood Count 13.9 K/mm3 (4.8-10.8)
[2022-02-24 17:27] LABS: Chloride 103 mmol/L (98-107); Potassium 4.4 mmoL/L (3.5-5.1); Sodium 134 mmol/L (136-145)
[2022-02-24 17:30] LABS: Anion Gap 11.4 mEq/L (5-15); Blood Urea Nitrogen 33 mg/dl (9-20); Calcium 8.5 mg/dl (8.4-10.2); Carbon Dioxide 24 mmol/L (22.0-30.0); Creatinine Clearance Estimated 64 mL/min (50-200); Estimated Glomerular Filt Rate 64 ml/min (>60); GFR (African American) 78 ML/MIN (>60); Glucose 159 mg/dl (74-100)
[2022-02-24 17:44] LABS: Alanine Aminotransferase 49 U/L (12-78); Alkaline Phosphatase 60 U/L (38-126); Aspartate Amino Transferase 40 U/L (17-59); Bilirubin,Direct 0.1 mg/dl (0.0-0.4); Bilirubin,Indirect 0.6 mg/dL (0.0-0.9); Bilirubin,Total 0.7 mg/dl (0.2-1.3); Bilirubin,Unconjugated 0.6 mg/dL (0.0-1.1); Lipase 210 U/L (23-300); Troponin I < 0.01 ng/ml (0.00-0.034)
[2022-02-24 17:45] LABS: Albumin Level 3.6 g/dl (3.5-5.0); Total Protein,Serum 6.2 g/dl (6.3-8.2)
--- NOTE | 2022-02-24 17:55 | PC.NURSE ---
Pt stated that he takes one 81mg ASA every morning and already had that dose this AM.
[2022-02-24 18:00] VITALS: BP 178/91; PULSE 69; O2SAT 98
[2022-02-24 18:30] VITALS: BP 160/84; PULSE 58; RESP 24; O2SAT 96
--- NOTE | 2022-02-24 18:44 | PC.NURSE ---
has been paged.
--- NOTE | 2022-02-24 18:45 | PC.NURSE ---
speaking with Dr Mclean
--- NOTE | 2022-02-24 18:45 | PC.NURSE ---
on the phone with
--- NOTE | 2022-02-24 18:59 | PC.NURSE ---
states that pt refuses to stay and that Dr Mclean advised for administration of a dose of Brilinta and that he will see him in office at 0830 tomorrow.
[2022-02-24 19:06] VITALS: BP 152/80; PULSE 61; RESP 20; TEMP 36.7; O2SAT 96
== END 2022-02-24 19:07 | disposition home or self-care (01) ==
PROVIDERS: Emergency Provider Emergency Medicine; PCP Internal Medicine
DX: R07.9 Chest pain, unspecified (principal)
CPT/HCPCS: 71046; 80048; 80076; 83690; 84484; 85025; 93005; 99284

== ENCOUNTER → 2022-02-25 08:49 | Outpatient (CLI) | payer MEDICARE, SELFPAY ==
[2022-02-25 09:05] LABS: Coronavirus 19, PCR Not Detected (NotDetected); Influenza A, PCR Not Detected (NotDetected); Influenza B, PCR Not Detected (NotDetected)
[2022-02-25 09:44] LABS: Troponin I < 0.01 ng/ml (0.00-0.034)
== END ==
PROVIDERS: PCP Internal Medicine; Visit Provider Internal Medicine
DX: E78.5 Hyperlipidemia, unspecified (principal); I20.8 Other forms of angina pectoris; R06.02 Shortness of breath; Z01.812 Encounter for preprocedural laboratory examination; Z20.822 Contact with and (suspected) exposure to COVID-19
CPT/HCPCS: 36415; 84484; C9803; U0003; U0005

== ENCOUNTER 2022-02-26 09:41 | Day surgery (SDC) | payer MEDICARE, SELFPAY ==
[2022-02-26] VITALS (9 sets, daily range): BP systolic 114–156; BP diastolic 67–91; PULSE 60–80; RESP 18–20; TEMP 36.6; O2SAT 91–97; BMI 28.7
--- NOTE | 2022-02-26 | IR_ITS ---
APPROVED REPORT Patient Location: Outpatient Child Welfare Assistant: MALCOLM Lundy RT (R) PROCEDURES Left heart catheterization Left ventriculogram Selective coronary angiogram INDICATION Abnormal Myoview Informed consent was obtained prior to the procedure. COMPLICATIONS None Estimated Blood Loss: Less than 10 mls TECHNIQUE One percent lidocaine used to anesthetize the right anterior aspect of the wrist. The right radial artery was accessed via the Seldinger technique. A 6 Faroese sheath was placed in the right radial artery. 2.5 mg of verapamil, 800 mcg of nitroglycerin, 1mg Lidocaine and 5000 U Heparin were given through the arterial sheath. The papa catheter was also used to perform left heart catheterization, left ventriculogram and selective coronary angiogram. At the end of the procedure the sheath was removed good hemostasis was achieved using Traclet band, patient was transferred to the postop holding area in stable condition. ANGIOGRAPHIC RESULTS The left main artery Normal The left anterior descending artery Is a small vessel which does not reach the apex and has diffuse proximal 10 to 20% luminal irregularities The circumflex artery Vestigial normal The right coronary artery Is a large dominant vessel and has a mid vessel 40% concentric stenosis with wide distal patency The OTT ventriculogram reveals Normal 65% The left ventricular end-diastolic pressure 15 mmHg IMPRESSION Coronary artery disease involving the mid right coronary artery which is unlikely to be ischemic. Normal ejection fraction Borderline elevated LVEDP PLAN 1. It is unlikely the right coronary artery lesion is producing angina. I recommend antianginal medications. I chose not to perform an FFR on this vessel at this time. I recommend maximizing antianginal medications and should patient have recalcitrant angina completely refractory to medical therapy with an impairment on his quality of life only then what I bring him back and consider performing FFR 2. I believe patient's chest pain is most likely noncardiac Electronically signed by : Larry Mclean MD 02/26/2022 11:45:10
== END 2022-02-26 14:38 | disposition home or self-care (01) ==
LOC: CATHLAB 09:43
PROVIDERS: PCP Internal Medicine; Visit Provider Internal Medicine
DX: I25.118 Atherosclerotic heart disease of native coronary artery with other forms of angina pectoris (principal); Z87.891 Personal history of nicotine dependence; I48.91 Unspecified atrial fibrillation; I10 Essential (primary) hypertension; Z79.899 Other long term (current) drug therapy; J44.9 Chronic obstructive pulmonary disease, unspecified
CPT/HCPCS: 93458; 99152; C1725; C1769; J1644; Q9967

== ENCOUNTER → 2022-04-07 12:57 | Outpatient (CLI) | payer MEDICARE, SELFPAY ==
[2022-04-07 13:59] LABS: Alanine Aminotransferase 23 U/L (12-78); Albumin Level 3.6 g/dl (3.5-5.0); Albumin/Globulin Ratio 1.6 (1.1-1.8); Alkaline Phosphatase 87 U/L (38-126); Anion Gap 8.4 mEq/L (5-15); Aspartate Amino Transferase 35 U/L (17-59); Bilirubin,Total 0.5 mg/dl (0.2-1.3); Blood Urea Nitrogen 20 mg/dl (9-20); Calcium 8.9 mg/dl (8.4-10.2); Carbon Dioxide 30 mmol/L (22.0-30.0); Chloride 105 mmol/L (98-107); Chol/HDL Ratio 2.7 (1-3.5); Cholesterol 126 mg/dl (140-200); Estimated Glomerular Filt Rate 81 ml/min (>60); GFR (African American) 98 ML/MIN (>60); Globulin 2.3 g/dL (1.3-3.2); Glucose 92 mg/dl (74-100); HDL Cholesterol 46 mg/dl (40-60); Potassium 4.4 mmoL/L (3.5-5.1); Sodium 139 mmol/L (136-145); Total Protein,Serum 5.9 g/dl (6.3-8.2); Triglycerides 68 mg/dl (30-150); VLDL Cholesterol 14 mg/dL (0-40)
[2022-04-07 14:04] LABS: Basophils # 0.1 K/mm3 (0-0.2); Basophils % 0.7 % (0.1-2.0); Eosinophils # 0.1 K/mm3 (0.0-0.4); Eosinophils % 1.9 % (0.1-12.0); Hematocrit 42.7 % (42.0-52.0); Hemoglobin 13.3 g/dL (14.1-18.0); Lymphocytes # 1.6 K/mm3 (0.7-4.5); Lymphocytes % 23.1 % (10-50); Mean Corpuscular HGB Conc 31.2 g/dL (31.8-35.4); Mean Corpuscular Hemoglobin 28.7 pg (27.0-31.2); Mean Corpuscular Volume 91.8 fl (80-94); Mean Platelet Volume 8.2 fl (7.4-10.4); Monocytes # 0.5 K/mm3 (0.1-1.0); Monocytes % 7.5 % (1.7-9.3); Neutrophils # 4.5 K/mm3 (1.8-7.8); Neutrophils % 66.8 % (37.0-80.0); Platelet Count 327 K/mm3 (142-424); Red Blood Count 4.65 M/mm3 (4.60-6.20); Red Cell Distribution Width 15.3 % (11.5-17.5); White Blood Count 6.8 K/mm3 (4.8-10.8)
== END ==
PROVIDERS: PCP Internal Medicine; Visit Provider Internal Medicine
DX: I10 Essential (primary) hypertension (principal); I25.10 Atherosclerotic heart disease of native coronary artery without angina pectoris; E78.5 Hyperlipidemia, unspecified; J44.9 Chronic obstructive pulmonary disease, unspecified; M16.12 Unilateral primary osteoarthritis, left hip; N40.1 Benign prostatic hyperplasia with lower urinary tract symptoms
CPT/HCPCS: 80053; 80061; 85025

== ENCOUNTER 2022-04-21 10:00 | Outpatient (RCR) | payer OTHER, MEDICARE, SELFPAY ==
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
== END 2022-04-21 10:05 | disposition home or self-care (01) ==
LOC: PT 10:00
PROVIDERS: Visit Provider Internal Medicine
DX: S16.1XXD Strain of muscle, fascia and tendon at neck level, subsequent encounter (principal); S39.012D Strain of muscle, fascia and tendon of lower back, subsequent encounter; S46.811D Strain of other muscles, fascia and tendons at shoulder and upper arm level, right arm, subsequent encounter
CPT/HCPCS: 97010; 97014; 97035; 97110; 97112; 97140; 97163; 97164; 97530; G0283

== ENCOUNTER 2022-04-21 11:00 | Outpatient (RCR) | payer OTHER, MEDICARE, SELFPAY | END 2022-04-21 11:05 | disposition home or self-care (01) | LOC: OT 11:00 | PROVIDERS: Visit Provider Internal Medicine | DX: M79.642 Pain in left hand (principal); R20.0 Anesthesia of skin | CPT/HCPCS: 97010; 97014; 97035; 97110; 97140; 97165; G0283 ==

== ENCOUNTER → 2022-07-06 13:19 | Outpatient (CLI) | payer MEDICARE, SELFPAY ==
[2022-07-06 14:27] LABS: Erythrocyte Sedimentation Rate 5 mm/hr (0-20)
== END ==
PROVIDERS: PCP Internal Medicine; Visit Provider Internal Medicine
DX: M54.2 Cervicalgia (principal); M79.2 Neuralgia and neuritis, unspecified; M15.0 Primary generalized (osteo)arthritis
CPT/HCPCS: 85651

== ENCOUNTER → 2022-09-21 10:49 | Outpatient (CLI) | payer MEDICARE, SELFPAY ==
--- NOTE | 2022-09-21 10:51 | CA_ITS ---
APPROVED REPORT EXAM: Comprehensive 2D, Doppler, and color-flow Echocardiogram Residential Leasing Manager: Leona Sepulveda RVT Ht: 5 ft 8 in Wt: 191lbs BSA: 2.00 BP: 137/61 mmHg Indications: SOA,CAD,COPD,CP,HTN,HLD 2D Dimensions LVOT 2.10 cm (M/F) 1.5-2.5 LA Volume 52.60 mL LA Volume Index 26.17 mL/m2 (M/F) 16-34 M-Mode Dimensions RVDd 2.11 cm (0.9-2.6) LA Diam 4.78 cm (1.9-4.0) LVDd 5.85 cm (3.5-5.7) Ao Diam 2.91 cm (2.0-3.7) LVDs 4.20 cm (3.5-5.7) IVSd 0.48 cm (0.6-1.1) PWd 0.48 cm (0.6-1.1) EF (Teich) 53.70% FS 28.20% EDV (Teich) 169.90 mL TAPSE 3.15 (<1.7) ESV (Teich) 78.60 mL LV Diastology E Decel Time 253.00 (160-240 msec) E/A Ratio 1.0 MED E' 4.90 (< 7 cm/sec) E'/MED E' Ratio 16.65 (>14) LAT E' 7.40 (<10 cm/sec) E/LAT E' Ratio 11.03 (>14) Aortic Valve AO Peak GR. 13.00 mmHg Mitral Valve MV E Max Luis. 82.00 (40-130 cm/s) MV A Velocity 83.00 (40-130 cm/s) E/A Ratio 0.98 MV Decel. Time 253.00 (160-240 ms) MV PHT 74.00 ms Pulmonary Valve PV Peak Velocity 77.00 (50-150 cm/s) Tricuspid Valve TR P. Velocity 255.00 cm/s RAP Estimate 10.00 mmHg RVSP 36.10 mmHg Left Ventricle Left atrium is mildly enlarged, left ventricle is normal size mild concentric left ventricular hypertrophy, estimated ejection fraction 55% with no regional wall motion abnormality, grade 2 diastolic dysfunction seen without tissue Doppler evidence of raise left atrial pressure. Right Ventricle Right atrium and right ventricle are mildly enlarged with normal contractility. Aortic Valve Aortic valve is minimally thickened and fibrosed there is no aortic stenosis or aortic insufficiency. Mitral Valve Mitral valve leaflets are minimally thickened, there is trace mitral regurgitation. Tricuspid Valve Tricuspid valve grossly normal, there is trace tricuspid regurgitation, tricuspid regurgitation jet velocity is inadequate for calculation of the right ventricular systolic pressure. Pulmonic Valve Pulmonic valve is poorly visualized. Great Vessels Aortic root is normal size. Inferior vena cava is poorly visualized. Pericardium No significant pericardial effusion noted. Conclusion 1. Mild biatrial enlargement, normal left ventricular size, mild concentric left ventricular hypertrophy, estimated ejection fraction 55% with no regional wall motion abnormality, grade 2 diastolic dysfunction seen without tissue Doppler evidence of raise left atrial pressure. 2. Mildly enlarged right ventricle with normal contractility. 3. Trace mitral and tricuspid regurgitation. 4. No significant pericardial effusion noted. 5. Inferior vena cava is poorly visualized. Electronically signed by : Quan Mendez MD 09/22/2022 05:46:09
== END ==
PROVIDERS: PCP Internal Medicine; Visit Provider Nurse Practitioner Family
DX: E78.2 Mixed hyperlipidemia (principal); I10 Essential (primary) hypertension; I25.118 Atherosclerotic heart disease of native coronary artery with other forms of angina pectoris; I51.89 Other ill-defined heart diseases; R06.02 Shortness of breath; R06.09 Other forms of dyspnea
CPT/HCPCS: 93306

== ENCOUNTER → 2022-09-27 17:51 | Outpatient (CLI) | payer MEDICARE, SELFPAY | PROVIDERS: Visit Provider Nurse Practitioner Family | DX: B35.1 Tinea unguium (principal) | CPT/HCPCS: 87102; 87206; 87220 ==

== ENCOUNTER → 2022-10-08 13:16 | Outpatient (CLI) | payer MEDICARE, SELFPAY ==
[2022-10-08 15:04] LABS: Basophils % 0.4 % (0.1-2.0); Eosinophils # 0.1 K/mm3 (0.0-0.4); Eosinophils % 1.1 % (0.1-12.0); Hematocrit 40.9 % (42.0-52.0); Hemoglobin 13.2 g/dL (14.1-18.0); Lymphocytes # 1.4 K/mm3 (0.7-4.5); Lymphocytes % 14.3 % (10-50); Mean Corpuscular HGB Conc 32.3 g/dL (31.8-35.4); Mean Corpuscular Hemoglobin 28.3 pg (27.0-31.2); Mean Corpuscular Volume 87.7 fl (80-94); Mean Platelet Volume 8.7 fl (7.4-10.4); Monocytes # 0.6 K/mm3 (0.1-1.0); Monocytes % 6.5 % (1.7-9.3); Neutrophils # 7.5 K/mm3 (1.8-7.8); Neutrophils % 77.7 % (37.0-80.0); Platelet Count 293 K/mm3 (142-424); Red Blood Count 4.66 M/mm3 (4.60-6.20); Red Cell Distribution Width 14.5 % (11.5-17.5); White Blood Count 9.7 K/mm3 (4.8-10.8)
[2022-10-08 16:00] LABS: Alanine Aminotransferase 23 U/L (12-78); Albumin Level 3.7 g/dl (3.5-5.0); Albumin/Globulin Ratio 1.6 (1.1-1.8); Alkaline Phosphatase 78 U/L (38-126); Anion Gap 9.3 mEq/L (5-15); Aspartate Amino Transferase 34 U/L (17-59); Bilirubin,Direct 0.1 mg/dl (0.0-0.4); Bilirubin,Total 1.1 mg/dl (0.2-1.3); Blood Urea Nitrogen 20 mg/dl (9-20); Calcium 8.5 mg/dl (8.4-10.2); Carbon Dioxide 29 mmol/L (22.0-30.0); Chloride 104 mmol/L (98-107); Estimated Glomerular Filt Rate 72 ml/min (>60); GFR (African American) 87 ML/MIN (>60); Globulin 2.3 g/dL (1.3-3.2); Glucose 80 mg/dl (74-100); Potassium 4.3 mmoL/L (3.5-5.1); Sodium 138 mmol/L (136-145)
[2022-10-12 12:00] LABS: Cholesterol 132 mg/dl (140-200)
== END ==
PROVIDERS: PCP Internal Medicine; Visit Provider Internal Medicine
DX: D64.9 Anemia, unspecified (principal); E78.5 Hyperlipidemia, unspecified
CPT/HCPCS: 80053; 80076; 82248; 82465; 85025

== ENCOUNTER 2022-11-17 21:04 | Emergency (ER) | payer MEDICARE, SELFPAY ==
[2022-11-17 21:12] VITALS: BP 188/76; PULSE 64; RESP 20; TEMP 36.6; O2SAT 95; BMI 29.5
--- NOTE | 2022-11-17 21:24 | HMH.EDABDPAI ---
Discharge Plan Disposition Patient Disposition: Home, Self-Care Chief Complaint: Abdominal Pain Prescriptions Prescriptions: No Action atenolol 25 mg tablet 25 mg PO DAILY atorvastatin [Lipitor] 80 mg tablet 80 mg PO DAILY azithromycin 250 mg tablet 250 mg PO QMWF Rx Instructions: start on day 2 of therapy Kezia Lynnta 100-62.5-25 mcg blister with device 1 inh INHALATION DAILY 90 Days Qty: 90 3RF fluticasone propionate [Flonase Allergy Relief] 50 mcg/actuation spray,suspension 2 spray intranasal DAILY 90 Days Qty: 16 3RF Rx Instructions: administer into each nostril albuterol sulfate 90 mcg/actuation HFA aerosol inhaler 2 inh INHALATION Q6H PRN (Reason: shortness of breath or wheezing) 90 Days Qty: 8.5 3RF finasteride 5 mg tablet 5 mg PO DAILY ipratropium-albuterol 0.5 mg-3 mg(2.5 mg base)/3 mL solution for nebulization 3 ml INHALATION Q6H PRN (Reason: shortness of breath) 90 Days Qty: 180 3RF potassium chloride 8 mEq capsule, extended release 8 meq PO DAILY urea 40 % cream 1 applic topical BID Qty: 85 2RF amlodipine 2.5 mg tablet See Rx Instructions .ROUTE .COMPLEX Qty: 90 1RF Dose Instruction: TAKE 1 TABLET BY MOUTH ONCE DAILY Rx Instructions: TAKE 1 TABLET BY MOUTH ONCE DAILY aspirin 81 MG tablet,delayed release (DR/EC) 81 mg PO DAILY furosemide 20 MG tablet 20 mg PO DAILY omeprazole 40 MG capsule,delayed release(DR/EC) 40 mg PO DAILY tamsulosin 0.4 MG capsule 0.4 mg PO HS Referrals Follow up/Referrals: Liban Aguilera MD [Primary Care Provider] - See instructions Clinical Impressions Clinical Impression: Abdominal pain Instructions Patient Instructions: DI for Acute Abdominal Pain Discharge ED Provider: Kimberly (ED)Олег Abdominal Pain HPI General Chief Complaint: Abdominal Pain Stated Complaint: upper stomach pain Time Seen by Provider: 11/17/22 21:24 Mode of Arrival: Ambulatory Source of Information: Patient Limitations: No Limitations Description of Symptoms (Recalled from ER Triage Doc. by RN): Pain 4/10 in mid upper gastric region that started 3 hrs ago. Pt states it feels like a gallstone History of Present Illness HPI narrative: pt with hx of gallstones and has had upper abd pain worse tonight complaint: abdominal pain Onset (ago): hour(s) Consistency: intermittent Location: RUQ Severity: moderate Associated symptoms: denies other symptoms Related Data Home Medications Medication Instructions Recorded Confirmed omeprazole 40 mg capsule,delayed 40 mg PO DAILY GERD 01/30/18 11/16/22 release tamsulosin 0.4 mg capsule 0.4 mg PO HS prostate 10/10/18 11/16/22 atenolol 25 mg tablet 25 mg PO DAILY A FIB 06/28/19 11/16/22 finasteride 5 mg tablet 5 mg PO DAILY BPH 03/05/20 11/16/22 aspirin 81 mg tablet,delayed 81 mg PO DAILY heart health 12/09/20 11/16/22 release furosemide 20 mg tablet 20 mg PO DAILY Edema 12/09/20 11/16/22 atorvastatin 80 mg tablet (Lipitor) 80 mg PO DAILY 02/25/22 11/16/22 azithromycin 250 mg tablet 250 mg PO QMWF 07/20/22 11/16/22 potassium chloride 8 mEq 8 meq PO DAILY 09/14/22 11/16/22 capsule,extended release Previous Rx's Medication Instructions Recorded ipratropium 0.5 mg-albuterol 3 mg 3 ml inhalation Q6H PRN shortness 12/04/21 (2.5 mg base)/3 mL nebulization of breath 90 days #180 mL soln albuterol sulfate 90 mcg/actuation 2 inh inhalation Q6H PRN shortness 07/20/22 aerosol inhaler of breath or wheezing 90 days #8.5 grams fluticasone fur. 100 mcg-umeclid 1 inh inhalation DAILY 90 days #90 07/20/22 62.5 mcg-vilant 25 mcg ea inhalat.powder (Trelegy Ellipta) fluticasone propionate 50 2 spray intranasal DAILY 90 days 07/20/22 mcg/actuation nasal #16 grams spray,suspension (Flonase Allergy Relief) urea 40 % topical cream 1 applic topical BID keratosis #85 09/27/22 grams amlodipine 2.5 mg tablet See Rx Instructi
[2022-11-17 21:31] VITALS: BP 168/68; PULSE 52; O2SAT 96
--- NOTE | 2022-11-17 21:37 | PC.NURSE ---
Dr. Caldera paged
[2022-11-17 22:00] VITALS: BP 168/79; PULSE 58; RESP 20; O2SAT 95
--- NOTE | 2022-11-17 22:09 | PC.NURSE ---
Pt still unable to provide urine sample at this time.
[2022-11-17 22:29] LABS: Chloride 105 mmol/L (98-107); Potassium 4.1 mmoL/L (3.5-5.1); Sodium 138 mmol/L (136-145)
[2022-11-17 22:31] VITALS: BP 153/60; PULSE 62; RESP 18; O2SAT 96
[2022-11-17 22:31] LABS: Amylase 88 U/L (30-110); Blood Urea Nitrogen 21 mg/dl (9-20); Creatinine Clearance Estimated 71 mL/min (50-200); Estimated Glomerular Filt Rate 72 ml/min (>60); GFR (African American) 87 ML/MIN (>60)
[2022-11-17 22:32] LABS: Alanine Aminotransferase 51 U/L (12-78); Albumin Level 4.2 g/dl (3.5-5.0); Albumin/Globulin Ratio 1.6 (1.1-1.8); Alkaline Phosphatase 88 U/L (38-126); Anion Gap 8.1 mEq/L (5-15); Aspartate Amino Transferase 87 U/L (17-59); Bilirubin,Total 1.1 mg/dl (0.2-1.3); Calcium 8.6 mg/dl (8.4-10.2); Carbon Dioxide 29 mmol/L (22.0-30.0); Globulin 2.7 g/dL (1.3-3.2); Glucose 111 mg/dl (74-100); Lipase 129 U/L (23-300); Total Protein,Serum 6.9 g/dl (6.3-8.2)
[2022-11-17 22:34] LABS: Basophils # 0.1 K/mm3 (0-0.2); Basophils % 0.5 % (0.1-2.0); Eosinophils % 0.3 % (0.1-12.0); Hematocrit 42.9 % (42.0-52.0); Hemoglobin 13.6 g/dL (14.1-18.0); Lymphocytes # 1.8 K/mm3 (0.7-4.5); Lymphocytes % 14.8 % (10-50); Mean Corpuscular HGB Conc 31.7 g/dL (31.8-35.4); Mean Corpuscular Hemoglobin 28.2 pg (27.0-31.2); Mean Corpuscular Volume 88.7 fl (80-94); Mean Platelet Volume 7.7 fl (7.4-10.4); Monocytes # 0.9 K/mm3 (0.1-1.0); Monocytes % 7.7 % (1.7-9.3); Neutrophils # 9.3 K/mm3 (1.8-7.8); Neutrophils % 76.7 % (37.0-80.0); Platelet Count 289 K/mm3 (142-424); Red Blood Count 4.83 M/mm3 (4.60-6.20); Red Cell Distribution Width 14.1 % (11.5-17.5); White Blood Count 12.1 K/mm3 (4.8-10.8)
[2022-11-17 22:54] LABS: Microscopic, Urine URINE MICROSCOPIC (MICROSCOPIC)
[2022-11-17 22:55] LABS: Appearance,Urine CLEAR (Clear); Bilirubin,Urine Negative (Negative); Blood, Urine TRACE-I (Negative); Color,Urine YELLOW (Yellow); Glucose,Urine (UA) Negative (Negative); Ketones,Urine Negative (Negative); Leukocyte Esterase,Urine Negative (Negative); Nitrate,Urine Negative (Negative); Protein,Urine Negative (Negative); Specific Gravity, Urine 1.025 (1.005-1.030)
[2022-11-17 23:01] VITALS: BP 140/54; PULSE 59; O2SAT 94
[2022-11-17 23:14] LABS: RBC,Urine Occasional #/hpf (0-3); Squamous Epithelial Cell,Urine Occasional #/hpf (0-5)
[2022-11-17 23:40] VITALS: BP 140/66; PULSE 64; RESP 18; TEMP 36.7
== END 2022-11-17 23:43 | disposition home or self-care (01) ==
PROVIDERS: Emergency Provider Emergency Medicine; PCP Internal Medicine
DX: R10.10 Upper abdominal pain, unspecified (principal); R10.13 Epigastric pain; F90.9 Attention-deficit hyperactivity disorder, unspecified type; J45.909 Unspecified asthma, uncomplicated; J44.9 Chronic obstructive pulmonary disease, unspecified; Z87.891 Personal history of nicotine dependence; Z90.49 Acquired absence of other specified parts of digestive tract
CPT/HCPCS: 80053; 81001; 82150; 83690; 85025; 96374; 96375; 99284; 99285

== ENCOUNTER → 2022-12-20 07:50 | Outpatient (CLI) | payer MEDICARE, SELFPAY ==
--- NOTE | 2022-12-20 08:05 | US_ITS ---
FINAL REPORT CLINICAL HISTORY: RUQ PAIN FINDINGS: Sonographic images of the right upper quadrant were obtained. The pancreas is partially obscured.The liver has an unremarkable appearance. There are probable small gallstones but shadowing is not well demonstrated. There is no evidence of biliary ductal dilatation.The common duct measures 4mm. Limited images of the right kidney are unremarkable. IMPRESSION: Probable small gallstones but shadowing is not well demonstrated. Reviewed, Interpreted and Dictated by Eddie Walker III, MD Transcribed by Siri Collins Authenticated and [facility]
== END ==
PROVIDERS: PCP Internal Medicine; Visit Provider Internal Medicine
DX: R10.13 Epigastric pain (principal)
CPT/HCPCS: 76705

== ENCOUNTER 2023-01-11 06:16 | Day surgery (SDC) | payer MEDICARE, SELFPAY ==
[2023-01-05 14:00] VITALS: BMI 35.1
[2023-01-11 06:32] VITALS: BP 158/65; PULSE 64; RESP 18; TEMP 36.4; O2SAT 94
--- NOTE | 2023-01-11 06:46 | EXP.ANES.CKL ---
[facility] Disclaimer: The information contained in this section may have been updated after the patient was seen, as this information can be updated by other users. 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 COPD (chronic obstructive pulmonary disease) Onychomycosis Sinus bradycardia Stopped smoking with greater than 30 pack year history Surgical History History of colonoscopy History of prostate surgery Family History Other No significant family history Social History Smoking Status: Former smoker pack-years: 45 second hand exposure: No alcohol intake: never substance use type: denies use current occupational status: retired Travel in the last 8 weeks: None household members: none housing: house current occupational exposures/hazards: No caffeine: Yes [facility] Anesthesia Checklist Patient Identification Patient Identification: Arm Band and Verbal (Name & ) Structural Data Admitted From: Home Planned Operative Procedure/s: EGD Consent for Planned Operative Procedure(s) Verified: Yes NPO Status Verified Time NPO: 00:00 Additional verifications Anesthesia Reactions: No Airway Assessment C-Spine Mobility Assessed: Yes TMJ Mobility Assessed: Yes Dentition: Edentulous Neurological Assessment Level of Consciousness: Awake Hx Seizures: No Numbness or tingling in extremities: No Anesthesia Plan Anesthesia Risk discussed: Yes Anesthesia Plan: Verified ASA Class: III Anesthesia Type: MAC
[2023-01-11 07:27] VITALS: O2SAT 94
--- NOTE | 2023-01-11 07:38 | HMH.SCOPE ---
Procedure: Date: 01/11/23 Patient Date of :: 1940 Procedure Performed:: Esophagogastroduodenoscopy with biopsy Indications:: Gastroesophageal reflux Performing Provider:: Bob Yu MD Referring Provider:: . Sedation:: Monitored anesthesia care Procedure:: After informed consent was obtained the patient was taken to the endoscopy suite. Sedation ensued after the patient was transferred to the left lateral decubitus position. Pulse, blood pressure, and oxygen saturation were monitored throughout the procedure. The endoscope was advanced beyond the duodenal bulb. Retroflexion within the gastric lumen was accomplished. The gastroscope was carefully removed and the patient was transferred to recovery in stable condition. Please see findings and specimens below for detail. Findings:: Fairly large sliding hiatal hernia Moderate distal gastritis Specimens:: Antral biopsy Recommendations:: Proton pump inhibition Ongoing discussion with regard to possible biliary disease Complications:: No immediate Estimated blood obtained (mL): 1
[2023-01-11 07:41] VITALS: BP 101/60; PULSE 70; RESP 14; TEMP 36.3; O2SAT 93
[2023-01-11 07:51] VITALS: BP 103/61; PULSE 61; RESP 16; O2SAT 95
[2023-01-11 08:01] VITALS: BP 109/62; PULSE 60; RESP 17; O2SAT 96
[2023-01-11 08:11] VITALS: BP 123/71; PULSE 63; RESP 17; O2SAT 98
== END 2023-01-11 08:15 | disposition home or self-care (01) ==
PROVIDERS: PCP Internal Medicine; Visit Provider Surgery
PROC: 0DJ08ZZ Inspection of Upper Intestinal Tract, Via Natural or Artificial Opening Endoscopic (ICD-10-PCS; CPT 43235; principal; 2023-01-11 07:30)
DX: K21.9 Gastro-esophageal reflux disease without esophagitis (principal); K44.9 Diaphragmatic hernia without obstruction or gangrene; K29.70 Gastritis, unspecified, without bleeding; Z79.899 Other long term (current) drug therapy
CPT/HCPCS: 43239; 88305

== ENCOUNTER → 2023-03-14 10:35 | Outpatient (CLI) | payer MEDICARE, SELFPAY ==
--- NOTE | 2023-03-14 10:37 | CA_ITS ---
FINAL REPORT TECHNIQUE: Color Doppler, duplex Doppler and gates scale sonography of the bilateral neck arterial vasculature was performed. Velocities were measured in the carotid arteries. Stenosis evaluation based on the validated velocity criteria. CLINICAL HISTORY: CAD, HTN, AFIB, HLD, EX SMOKER FINDINGS: The peak systolic velocity of the right common carotid artery is 72 cm/s. The peak systolic velocity of the right internal carotid artery is 76 cm/s and end diastolic velocity 20 cm/s. A mild amount of plaque is present. The right external carotid artery is patent. The right vertebral artery is patent with antegrade flow. The peak systolic velocity of the left common carotid artery is 96 cm/s. The peak systolic velocity of the left internal carotid artery is 82 cm/s and end diastolic velocity 24 cm/s. A mild amount of plaque is present. The left external carotid artery is patent.The left vertebral artery is patent with antegrade flow. IMPRESSION: Less than 50% bilateral carotid stenoses. Bilateral patent vertebral arteries with antegrade flow. If indicated, CTA or MRA could further evaluate. Reviewed, Interpreted and Dictated by Eddie Walker III, MD Transcribed by Sabine Soni Authenticated and [facility]
== END ==
PROVIDERS: PCP Internal Medicine; Visit Provider Internal Medicine
DX: R22.1 Localized swelling, mass and lump, neck (principal); R20.0 Anesthesia of skin
CPT/HCPCS: 93880

== ENCOUNTER → 2023-04-06 14:43 | Outpatient (CLI) | payer MEDICARE, SELFPAY ==
[2023-04-06 16:05] LABS: Alanine Aminotransferase 18 U/L (12-78); Albumin Level 3.8 g/dl (3.5-5.0); Albumin/Globulin Ratio 1.6 (1.1-1.8); Alkaline Phosphatase 90 U/L (38-126); Anion Gap 12.1 mEq/L (5-15); Aspartate Amino Transferase 29 U/L (17-59); Bilirubin,Total 0.7 mg/dl (0.2-1.3); Blood Urea Nitrogen 15 mg/dl (9-20); Calcium 8.4 mg/dl (8.4-10.2); Carbon Dioxide 27 mmol/L (22.0-30.0); Chloride 106 mmol/L (98-107); Chol/HDL Ratio 2.7 (1-3.5); Cholesterol 125 mg/dl (140-200); Estimated Glomerular Filt Rate 93 ml/min (>60); GFR (African American) 112 ML/MIN (>60); Globulin 2.4 g/dL (1.3-3.2); Glucose 85 mg/dl (74-100); HDL Cholesterol 47 mg/dl (40-60); Potassium 4.1 mmoL/L (3.5-5.1); Sodium 141 mmol/L (136-145); Total Protein,Serum 6.2 g/dl (6.3-8.2); Triglycerides 60 mg/dl (30-150); VLDL Cholesterol 12 mg/dL (0-40)
[2023-04-06 16:17] LABS: Direct LDL Cholesterol 66.24 mg/dL (100-129)
== END ==
PROVIDERS: PCP Internal Medicine; Visit Provider Internal Medicine
DX: I10 Essential (primary) hypertension (principal); I25.10 Atherosclerotic heart disease of native coronary artery without angina pectoris; M15.0 Primary generalized (osteo)arthritis; K21.9 Gastro-esophageal reflux disease without esophagitis; E78.5 Hyperlipidemia, unspecified; J44.9 Chronic obstructive pulmonary disease, unspecified; N40.1 Benign prostatic hyperplasia with lower urinary tract symptoms
CPT/HCPCS: 80053; 80061

== ENCOUNTER → 2023-04-12 10:52 | Outpatient (CLI) | payer MEDICARE, SELFPAY ==
--- NOTE | 2023-04-12 10:59 | XR_ITS ---
FINAL REPORT CLINICAL HISTORY: LT HIP PAIN FINDINGS: Left hip Three views were obtained. There is no acute fracture or dislocation. There are mild right and moderate to severe left degenerative changes. No soft tissue abnormality is identified. IMPRESSION: Degenerative changes bilaterally, left greater than right. Reviewed, Interpreted and Dictated by Eddie Walker III, MD Transcribed by Mayra Almazan Authenticated and . [facility]
--- NOTE | 2023-04-12 10:59 | XR_ITS ---
FINAL REPORT CLINICAL HISTORY: LUMBAGO W/LT SCIATICA FINDINGS: LUMBAR SPINE Five views demonstrate no acute fracture. Moderate and severe degenerative changes are present with multilevel vacuum phenomenon. There is facet arthropathy at multiple levels. There is 4 mm of anterolisthesis of L3 on 4. Vascular calcification is noted. IMPRESSION: Multilevel degenerative changes. Reviewed, Interpreted and Dictated by Eddie Walker III, MD Transcribed by Mayra Almazan Authenticated and [facility]
== END ==
PROVIDERS: PCP Internal Medicine; Visit Provider Internal Medicine
DX: M25.552 Pain in left hip (principal); M54.42 Lumbago with sciatica, left side
CPT/HCPCS: 72110; 73502

== ENCOUNTER 2023-05-04 10:00 | Outpatient (RCR) | payer MEDICARE, SELFPAY | END 2023-05-04 10:05 | disposition home or self-care (01) | LOC: PT 10:00 | PROVIDERS: PCP Internal Medicine; Visit Provider Internal Medicine | DX: M54.42 Lumbago with sciatica, left side (principal); M16.12 Unilateral primary osteoarthritis, left hip | CPT/HCPCS: 97010; 97014; 97110; 97163; 97530; G0283 ==

== ENCOUNTER 2023-05-20 10:11 | Emergency (ER) | payer MEDICARE, SELFPAY ==
[2023-05-20 10:11] VITALS: BP 184/92; PULSE 70; RESP 18; TEMP 36.5; O2SAT 96; BMI 29.5
[2023-05-20 10:15] VITALS: BP 184/92; PULSE 72; RESP 20; O2SAT 96
--- NOTE | 2023-05-20 10:15 | PC.NURSE ---
Dr. Gallo at BS for pt eval
--- NOTE | 2023-05-20 10:22 | PC.NURSE ---
DR CHU AT BEDSIDE
--- NOTE | 2023-05-20 10:24 | XR_ITS ---
FINAL REPORT CLINICAL HISTORY: non traumatic knee pain FINDINGS: Right knee Three views were obtained. There is no acute fracture or dislocation. There are mild degenerative changes. No soft tissue abnormality is identified. IMPRESSION: No acute process. Reviewed, Interpreted and Dictated by Eddie Walker III, MD Transcribed by Mayra Almazan Authenticated and [facility]
--- NOTE | 2023-05-20 10:24 | CT_ITS ---
FINAL REPORT TECHNIQUE: Limited sonographic images of the pelvis were obtained. Sagittal and coronal reformatted images were obtained and reviewed. This study was performed with techniques to keep radiation doses as low as reasonably achievable, (ALARA). Individualized dose reduction techniques using automated exposure control or adjustment of mA and/or kV according to the patient's size were employed. CLINICAL HISTORY: right hip/pelvis pain, inability to bear weight FINDINGS: CT PELVIS W/O CONTRAST No fracture or dislocation is identified. The musculature is intact. There are moderate right and severe left degenerative changes. IMPRESSION: Degenerative changes bilaterally, left greater than right. Reviewed, Interpreted and Dictated by Eddie Walker III, MD Transcribed by Mayra Almazan Authenticated and [facility]
[2023-05-20 10:31] VITALS: BP 195/166; PULSE 69; RESP 20; O2SAT 96
--- NOTE | 2023-05-20 10:34 | PC.NURSE ---
Pt provided with pillow and ice pack for knee
[2023-05-20 10:39] VITALS: BP 194/102; PULSE 64; O2SAT 95
[2023-05-20 10:39] LABS: Basophils % 0.2 % (0.1-2.0); Eosinophils # 0.1 K/mm3 (0.0-0.4); Eosinophils % 0.3 % (0.1-12.0); Hematocrit 54.1 % (42.0-52.0); Hemoglobin 16.8 g/dL (14.1-18.0); Lymphocytes # 1.3 K/mm3 (0.7-4.5); Mean Corpuscular Volume 86.9 fl (80-94); Mean Platelet Volume 7.3 fl (7.4-10.4); Monocytes # 0.5 K/mm3 (0.1-1.0); Monocytes % 3.3 % (1.7-9.3); Neutrophils # 14.3 K/mm3 (1.8-7.8); Neutrophils % 88.2 % (37.0-80.0); Platelet Count 369 K/mm3 (142-424); Red Blood Count 6.22 M/mm3 (4.60-6.20); Red Cell Distribution Width 15.2 % (11.5-17.5); White Blood Count 16.2 K/mm3 (4.8-10.8)
--- NOTE | 2023-05-20 10:41 | PC.NURSE ---
PT TO XR/CT AT THIS TIME
--- NOTE | 2023-05-20 10:41 | PC.NURSE ---
PT MEDICATED PER EMAR, ICE PACK TO RIGHT KNEE. PILLOW, BLANKET AND SOCK PROVIDED. CALL LIGHT WITHIN REACH
[2023-05-20 10:42] LABS: MANUAL DIFFERENTIAL MANUAL DIFFERENTIAL (MANUAL DIFF)
--- NOTE | 2023-05-20 10:43 | PC.NURSE ---
pt to ct via stretcher
--- NOTE | 2023-05-20 10:53 | PC.NURSE ---
Pt returned to room from RAD
[2023-05-20 10:54] LABS: Alanine Aminotransferase 34 U/L (12-78); Albumin Level 4.4 g/dl (3.5-5.0); Albumin/Globulin Ratio 1.3 (1.1-1.8); Alkaline Phosphatase 93 U/L (38-126); Anion Gap 13.4 mEq/L (5-15); Aspartate Amino Transferase 34 U/L (17-59); Bilirubin,Total 1.2 mg/dl (0.2-1.3); Blood Urea Nitrogen 34 mg/dl (9-20); Calcium 9.1 mg/dl (8.4-10.2); Carbon Dioxide 29 mmol/L (22.0-30.0); Chloride 101 mmol/L (98-107); Creatinine Clearance Estimated 71 mL/min (50-200); Estimated Glomerular Filt Rate 72 ml/min (>60); GFR (African American) 87 ML/MIN (>60); Globulin 3.3 g/dL (1.3-3.2); Glucose 153 mg/dl (74-100); Potassium 4.4 mmoL/L (3.5-5.1); Sodium 139 mmol/L (136-145); Total Protein,Serum 7.7 g/dl (6.3-8.2)
--- NOTE | 2023-05-20 10:55 | HMH.EDGENADL ---
Discharge Plan Disposition Patient Disposition: Home, Self-Care Prescriptions Prescriptions: No Action atenolol 25 mg tablet 25 mg PO DAILY atorvastatin [Lipitor] 80 mg tablet 80 mg PO DAILY albuterol sulfate 90 mcg/actuation HFA aerosol inhaler 2 inh INHALATION Q6H PRN (Reason: shortness of breath or wheezing) 90 Days Qty: 8.5 3RF finasteride 5 mg tablet 5 mg PO DAILY ipratropium-albuterol 0.5 mg-3 mg(2.5 mg base)/3 mL solution for nebulization 3 ml INHALATION Q6H PRN (Reason: shortness of breath) 90 Days Qty: 180 3RF potassium chloride 8 mEq capsule, extended release 8 meq PO DAILY amlodipine 2.5 mg tablet See Rx Instructions .ROUTE .COMPLEX Qty: 90 1RF Dose Instruction: TAKE 1 TABLET BY MOUTH ONCE DAILY Rx Instructions: TAKE 1 TABLET BY MOUTH ONCE DAILY aspirin 81 MG tablet,delayed release (DR/EC) 81 mg PO DAILY furosemide 20 MG tablet 20 mg PO DAILY omeprazole 40 MG capsule,delayed release(DR/EC) 40 mg PO DAILY tamsulosin 0.4 MG capsule 0.4 mg PO HS ketoconazole 2 % cream 1 applic topical BID fluticasone propionate [Flonase Allergy Relief] 50 mcg/actuation spray,suspension 2 spray intranasal DAILY Rx Instructions: administer into each nostril Trelegy Ellipta 100-62.5-25 mcg blister with device 1 inh INHALATION DAILY Referrals Follow up/Referrals: Liban Aguilera MD [Primary Care Provider] - See instructions [place] Guerra DO [Staff Physician] - See instructions (for evaluation and treatment of chronic arthritis ) Activity Restrictions/Add. Instructions Additional Instructions/Restrictions: Follow-up with Dr. Guerra for further discussion regarding joint injections and discussion regarding joint replacements. Return with worsening symptoms. Clinical Impressions Clinical Impression: Acute pain of right hip, Acute pain of right knee Discharge ED Provider: Stacey Gallo [facility] General Chief complaint: Extremity Injury, Lower Stated complaint: leg pain Time Seen by Provider: 05/20/23 10:12 Mode of Arrival: EMS Source of Information: Patient Limitations: No Limitations Description of Symptoms (Recalled from ER Triage Doc. by RN): Pt c/o RLE pain, reports pain began on 05/10/23. Pt reports pain is from R hip all the way down his leg, pt reports pain worse in knee area. Pt states his leg is weak and wont hold him up. + pulses pt is tender to touch in RLE History of Present Illness HPI narrative: Patient is an 82-year-old male here with right leg pain. States is predominantly in the right hip but also has some pain in his right thigh and right knee. Denies any changes in sensation denies any injuries fevers chills or other definitive pathology in the past and these locations. States he has had chronic left leg pain that has been similar he has been being treated with physical therapy and told that he had arthritis in this area in the past. No swelling in the leg no erythema or warmth from historic standpoint. No history of DVT or PE. No chest pain or shortness of breath. Called EMS today because the pain is to the point where he cannot bear weight. Related Data Home Medications Medication Instructions Recorded Confirmed omeprazole 40 mg capsule,delayed 40 mg PO DAILY GERD 01/30/18 05/03/23 release tamsulosin 0.4 mg capsule 0.4 mg PO HS prostate 10/10/18 05/03/23 atenolol 25 mg tablet 25 mg PO DAILY A FIB 06/28/19 05/03/23 finasteride 5 mg tablet 5 mg PO DAILY BPH 03/05/20 05/03/23 aspirin 81 mg tablet,delayed 81 mg PO DAILY heart health 12/09/20 05/03/23 release furosemide 20 mg tablet 20 mg PO DAILY Edema 12/09/20 05/03/23 atorvastatin 80 mg tablet (Lipitor) 80 mg PO DAILY Cholesterol 02/25/22 05/03/23 potassium chloride 8 mEq 8 meq PO DAILY Supplement 09/14/22 05/03/23 capsule,extended release fluticasone fur. 100 mcg-umeclid 1 inh inhalation DAILY soa 01/05/23 05/03/23 62.5 mcg
[2023-05-20 11:08] LABS: Lymphocytes % 9 % (10-50); Monocytes % 3 % (2-9); Neutrophils % 88 % (42-76); Total Cells Counted 100
[2023-05-20 11:09] LABS: Erythrocyte Sedimentation Rate 1 mm/hr (0-20); Platelet Estimate Normal; RBC Morphology Normal
[2023-05-20 11:31] VITALS: BP 151/73; PULSE 60; O2SAT 94
[2023-05-20 11:32] LABS: C-Reactive Protein 1.5 mg/L (0-4)
--- NOTE | 2023-05-20 11:34 | PC.NURSE ---
dr pratt at bedside to reevaluate pt
[2023-05-20 11:49] VITALS: BP 151/73; PULSE 69; RESP 20; TEMP 36.5; O2SAT 96
== END 2023-05-20 12:11 | disposition home or self-care (01) ==
PROVIDERS: Emergency Provider Student in an Organized Health Care Education/Training Program; PCP Internal Medicine
DX: M25.551 Pain in right hip (principal); M25.561 Pain in right knee; I48.91 Unspecified atrial fibrillation; J44.9 Chronic obstructive pulmonary disease, unspecified; Z87.891 Personal history of nicotine dependence
CPT/HCPCS: 72192; 73562; 80053; 85007; 85025; 85651; 86140; 96361; 96374; 96375; 99285; J2405

== ENCOUNTER → 2023-05-25 07:14 | Outpatient (CLI) | payer MEDICARE, SELFPAY ==
--- NOTE | 2023-05-25 07:36 | MR_ITS ---
FINAL REPORT CLINICAL HISTORY: LUMBAGO WITH RIGHT SCIATICA FINDINGS: Multiplanar MR imaging of the lumbar spine was performed without contrast. On the sagittal T2-weighted images, there is abnormal decreased signal throughout the lumbar discs. There is moderate loss of height at all levels. The vertebrae are of normal height. There is minimal spondylolisthesis of L3 on 4, likely degenerative. L1-2: Moderate diffuse disc bulge and endplate hypertrophy are present. There is mild to moderate bilateral neural foraminal narrowing. L2-3: Diffuse disc bulge and endplate hypertrophy are present. There is moderate spinal and mild to moderate bilateral neural foraminal narrowing. L3-4: Mild diffuse disc bulge is present. There is bilateral facet hypertrophy. There is moderate spinal and mild bilateral neural foraminal narrowing. L4-5: Moderate diffuse disc bulge and endplate hypertrophy are present. There is high-grade right and moderate left neural foraminal narrowing. There is asymmetric enlargement of the right L4-5 facet. L5-S1: Mild diffuse disc bulge is present with mild to moderate right neural foraminal narrowing. IMPRESSION: Minimal spondylolisthesis of L3 on 4, probably degenerative. High-grade right neural foraminal narrowing at L4-5. Multilevel degenerative disc disease. Reviewed, Interpreted and Dictated by Bob Schneider MD Transcribed by Mayra Almazan Authenticated and [facility]
== END ==
PROVIDERS: PCP Internal Medicine; Visit Provider Internal Medicine
DX: M54.41 Lumbago with sciatica, right side (principal)
CPT/HCPCS: 72148; 76376

== ENCOUNTER 2023-06-21 03:33 | Emergency (ER) | payer MEDICARE, SELFPAY ==
[2023-06-21 03:35] VITALS: BP 137/71; PULSE 70; RESP 16; TEMP 36.6; O2SAT 98; BMI 29.2
--- OUTSIDE RECORDS SUMMARY | 2023-06-21 03:42 | XMS_ITS ---
Author Name Unknown Address [address] [place] [address] Phone Organization [facility] Address [address] [place] [address] Phone Care Team Providers Care Dividend Deposit Entry Clerk Name Role Phone Charlie VARGAS, Santiago Arias Unavailable [phone] Plan of Treatment Future Appointments Date Time Location Provi lissette Physician Specified 06/30/2023 8:15AM [facility] Santiago Guerra MD Assessments Includes: Assessments for all patient encounters No Assessments Recorded Medical Equipment - Implanted Devices Includes: Current and historical Devices No Medical Equipment Recorded Medications Administered Includes: Administered Medications in patient's chart No Administered Medications Recorded Results Includes: Results from 06/21/2022 through 06/21/2023 No Results Recorded For Specified Dates History of Present Illness History of Present Illness not supported for this document type No History of Present Illness Recorded Social History No Social History Recorded - Smoking Status Unknown Medical History Includes: Medical History in patient's chart No Medical History Recorded Family History Includes: Family History in patient's chart No Family History Recorded Review of Systems Review of Systems not supported for this document type No Review of Systems Recorded Mental Status No Mental Status Recorded Functional Status No Functional Status Recorded Physical Exam Physical Exam not supported for this document type No Physical Exam Recorded Insurance Includes: Active Insurance Policies Plan Name Member ID Group # Subscriber Relationship Effect kristen Dates 1 - [employer] [id number] Vikram Monae Self Clinical Notes Includes: Signed Clinical Notes starting from 08/19/2022 No Clinical Notes Recorded
--- OUTSIDE RECORDS SUMMARY | 2023-06-21 03:42 | XMS_ITS ---
Care Plan - [facility], [facility] Created on: June 21, 2023 Vikram Monae : 1940 Sex: Male Author Name Unknown Address [address] [place] [address] Phone Organization [facility] Address [address] [place] [address] Phone Care Team Providers Care Heel Reducer Name Role Phone Charlie VARGAS, Snatiago Arias Unavailable [phone]
--- NOTE | 2023-06-21 04:19 | HMH.EDGENADL ---
Discharge Plan Disposition Patient Disposition: Home, Self-Care Condition: Good Prescriptions Prescriptions: New gabapentin 300 mg capsule 300 mg PO Q12H PRN (Reason: pain) Qty: 12 0RF naproxen 500 mg tablet 500 mg PO Q12H PRN (Reason: pain) Qty: 20 0RF prednisone 50 mg tablet 50 mg PO DAILY 3 Days Qty: 3 0RF No Action atenolol 25 mg tablet 25 mg PO DAILY atorvastatin [Lipitor] 80 mg tablet 80 mg PO DAILY albuterol sulfate 90 mcg/actuation HFA aerosol inhaler 2 inh INHALATION Q6H PRN (Reason: shortness of breath or wheezing) 90 Days Qty: 8.5 3RF finasteride 5 mg tablet 5 mg PO DAILY ipratropium-albuterol 0.5 mg-3 mg(2.5 mg base)/3 mL solution for nebulization 3 ml INHALATION Q6H PRN (Reason: shortness of breath) 90 Days Qty: 180 3RF potassium chloride 8 mEq capsule, extended release 8 meq PO DAILY amlodipine 2.5 mg tablet See Rx Instructions .ROUTE .COMPLEX Qty: 90 1RF Dose Instruction: TAKE 1 TABLET BY MOUTH ONCE DAILY Rx Instructions: TAKE 1 TABLET BY MOUTH ONCE DAILY aspirin 81 MG tablet,delayed release (DR/EC) 81 mg PO DAILY furosemide 20 MG tablet 20 mg PO DAILY omeprazole 40 MG capsule,delayed release(DR/EC) 40 mg PO DAILY tamsulosin 0.4 MG capsule 0.4 mg PO HS ketoconazole 2 % cream 1 applic topical BID fluticasone propionate [Flonase Allergy Relief] 50 mcg/actuation spray,suspension 2 spray intranasal DAILY Rx Instructions: administer into each nostril Trelegy Ellipta 100-62.5-25 mcg blister with device 1 inh INHALATION DAILY Referrals Follow up/Referrals: Liban Aguilera MD [Primary Care Provider] - See instructions Activity Restrictions/Add. Instructions Additional Instructions/Restrictions: You were evaluated in the emergency department today. Please belt picker your prescriptions at the pharmacy and use them as needed for severe pain. You may also take Tylenol in addition to these medications. Do not drive or operate heavy machinery while taking gabapentin, as it may be sedating. It is a controlled substance. Follow-up outpatient on Tuesday with your spine referral as previously scheduled. Return to the emergency department for new or worsening symptoms. Clinical Impressions Clinical Impression: Lumbar radiculopathy, chronic Instructions Patient Instructions: DI for Acute Pain -- Adult, DI for Lumbar Radiculopathy Discharge ED Provider: Tere Magana General Adult HPI General Chief complaint: PAIN Stated complaint: right leg pain Time Seen by Provider: 06/21/23 03:36 Mode of Arrival: Wheelchair Source of Information: Patient Limitations: No Limitations Description of Symptoms (Recalled from ER Triage Doc. by RN): pt c/o right leg pain, onset 2 weeks ago, worsening 2 days ago, reports hx of arthritis, and pinched nerve in back and leg History of Present Illness HPI narrative: This patient is an 82-year-old male with a history of sciatica and lumbar radicular pain presenting to the emergency department for evaluation with concern for an acute exacerbation of his chronic pain. He also has a history of COPD on medical record review. He notes that he was seen by orthopedics here on 06/07/2023 for pain in his right hip/right lower extremity after referral from the emergency department. On medical record review, I can see that he was evaluated in the ED on 05/20/2023. It was felt by orthopedics that he has lumbar radiculopathy from his lumbar spine issues, so he was referred to a spine surgeon. His appointment is this Tuesday, but he feels that with his acute pain flare, he is not able to make it until then without some relief. He notes that he has not been able to sleep the last 2 nights secondary to pain. Nothing seems to make it better. Movement makes it worse. He describes it as a nerve pain going from his right buttock/hip down his right lower extremity on the posterior asp
[2023-06-21 04:57] VITALS: BP 132/84; PULSE 80; RESP 16; TEMP 36.6
== END 2023-06-21 04:58 | disposition home or self-care (01) ==
PROVIDERS: Emergency Provider Emergency Medicine; PCP Internal Medicine
DX: M54.16 Radiculopathy, lumbar region (principal); J44.9 Chronic obstructive pulmonary disease, unspecified; K21.9 Gastro-esophageal reflux disease without esophagitis; Z87.891 Personal history of nicotine dependence
CPT/HCPCS: 96372; 99283

== ENCOUNTER → 2023-06-28 07:42 | Outpatient (CLI) | payer MEDICARE, SELFPAY ==
--- NOTE | 2023-06-28 08:06 | PC.NURSE ---
Pre and Post Spirometry completed without incident. Albuterol 0.083% given via HHN, per protocol, Pt tolerated tx well.
== END ==
PROVIDERS: PCP Internal Medicine; Visit Provider Internal Medicine Pulmonary Disease
DX: J44.9 Chronic obstructive pulmonary disease, unspecified (principal)
CPT/HCPCS: 94060

== ENCOUNTER → 2023-07-14 10:38 | Outpatient (POV) | payer MEDICARE, SELFPAY ==
--- NOTE | 2023-07-14 10:43 | EXP.PAIN.OV ---
HPI Data of Consult Patient: new to practice Consult date: 07/14/23 Requesting Physician: Tere Guerra APRN Primary Care Provider: Liban Aguilera MD Consult Narrative Reason for consult: Low back pain History of present illness: Mr. Monae is a 82 year old male who presents today as a new patient. He is a referral from Dr. Aguilera's office. Today he rates his pain a 10 out of 10. Patient states his pain is all in his low back and radiates down his entire right leg. Patient states this has been going on for the last couple of months unrelated to any specific trauma or injury. He does describe this as a constant aching, throbbing sensation that is worse with increased activity or ambulation and will occasionally cause his leg to give out where he stumbles and falls. Patient does state initially when this started he did end up going to the ER on 2 different occasions and can barely walk. Patient states that he did end up going to see orthopedic DrMaria Luz Guerra here at [facility] who did end up sending him on for referral for Santiago Guerra in [place]. Patient was seen by their office and was recommended injection therapy however the patient never followed through with this. Patient does state he is interested in injection therapy. He has tried [id number] Tylenol along with heat and ice and topicals with minimal relief. Patient has had recent physical therapy related to arthritis and weakness in his legs however noticed no additional improvement. Patient did continue to do at home exercising and stretching on a daily basis however over the last month this has been minimized due to the worsening pain symptoms. Patient denies any previous surgery or injection history. He states the last time he went to the ER he was prescribed naproxen and gabapentin and this has helped some. Patient does state that the pain can affect his sleeping. It does affect his ability perform activities of daily living such as cooking and cleaning. Patient does have a history of A-fib and is seen by Dr. Mclean's office. Patient denies any blood thinners. He does use a rollator walker for additional help with ambulation. He is currently managed with gabapentin 300 mg twice a day and in the past has been on Neche 5 mg from his primary care doctor. He does also state that he has pain in his left hip related to arthritis and has had knee injections in the past. His Deonte has been reviewed and is appropriate. CC: Tere Guerra APRN [facility] Disclaimer: The information contained in this section may have been updated after the patient was seen, as this information can be updated by other users. 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 Atrial fibrillation COPD (chronic obstructive pulmonary disease) Onychomycosis Sinus bradycardia Stopped smoking with greater than 30 pack year history Surgical History History of colonoscopy History of prostate surgery Family History Other No significant family history Social History Smoking Status: Never smoker second hand exposure: No alcohol intake: never substance use type: denies use current occupational status: retired Travel in the last 8 weeks: None household members: none housing: house current occupational exposures/hazards: No caffeine: Yes Review of Systems Review of Systems Review of systems:: pertinent systems reviewed and negative unless documented below Review of systems (narrative): Review of Systems: General: No recent weight changes, no fever, no sleep disturbances Respiratory: No cough, no shortness of air, no recurring pulmonary infections Cardiovascular/peripheral vascular: No chest pain, no palpitations, no edema, no shortness of breath Gastr
[2023-07-14 12:25] VITALS: BP 104/86; PULSE 59; RESP 18; O2SAT 98; BMI 29.2
== END ==
PROVIDERS: PCP Internal Medicine; Visit Provider Nurse Practitioner Family
DX: M51.16 Intervertebral disc disorders with radiculopathy, lumbar region; M47.26 Other spondylosis with radiculopathy, lumbar region; M54.50 Low back pain, unspecified; G89.4 Chronic pain syndrome; M48.062 Spinal stenosis, lumbar region with neurogenic claudication; M25.552 Pain in left hip
CPT/HCPCS: 99202; G0463

== ENCOUNTER 2023-08-02 10:59 | Day surgery (SDC) | payer MEDICARE, SELFPAY ==
[2023-08-02 11:13] VITALS: BP 145/67; PULSE 65; RESP 16; TEMP 36.8; O2SAT 96; BMI 29.2
[2023-08-02 11:18] VITALS: BP 147/59; PULSE 60; PULSE 62; RESP 18; O2SAT 95
[2023-08-02 11:25] VITALS: BP 131/70; PULSE 58; RESP 16; O2SAT 96
--- NOTE | 2023-08-02 11:27 | EXP.PAIN.PRO ---
Procedure Date: 08/02/23 Time: 11:10 Anesthesiologist:: Navin Hayes CRNA Complications:: None Pre-procedure Diagnosis:: Degenerative disc lumbar spine multilevels. Lumbar radiculopathy lumbar disc bulge L4-5, L5-S1. Post-procedure Diagnosis:: Same. Indications for Procedure:: Patient is a very pleasant 82-year-old male comes our clinic today for transforaminal epidural steroid injection on the right L4-5 and L5-S1. Patient describes low right back pain as well as right hip and leg radicular symptoms as constant, dull, aching. He rates the pain 7/10. Procedure Details:: Details of the procedure were explained to the patient. The patient was taken the procedure room placed in the prone position. The area of the lumbar spine was cleansed using chlorhexidine as a cleansing solution. At this time using fluoroscopy guidance markers were placed on the right lateral border of the L4 and L5 vertebral body. The skin and subcutaneous tissue was anesthetized using 1% lidocaine and 25-gauge needle. At this time using a 22-gauge 3-1/2 inch spinal needle the right upper one third of the L4-5 foramen was accessed. The same was done at the right L5-S1 foramen. Needle positions were confirmed and a lateral view using fluoroscopy and contrast dye. At this time 1 cc of 1% lidocaine +20 mg of Depo-Medrol was injected at each level after negative aspiration. [place] were removed. Band-Aid applied. Patient tolerated the procedure without difficulty. There are no complications. Plan and Disposition:: Patient was discharged without incident.
== END 2023-08-02 11:25 | disposition home or self-care (01) ==
PROVIDERS: PCP Internal Medicine; Visit Provider Nurse Anesthetist, Certified Registered
DX: M51.16 Intervertebral disc disorders with radiculopathy, lumbar region (principal)
CPT/HCPCS: 64483; 64484; J1030

== ENCOUNTER → 2023-08-17 10:59 | Outpatient (POV) | payer MEDICARE, SELFPAY ==
--- NOTE | 2023-08-17 11:06 | EXP.PAIN.SOA ---
[facility] Pain Management SOAP Note Subjective:: Patient is a pleasant 82-year-old male who presents today for follow-up of right transforaminal epidural steroid injection L4-L5 and L5-S1 on 08/02/2023. We are currently treating the patient for degenerative disc disease of lumbar spine with lumbar radiculopathy symptoms, lumbar spondylosis, lumbar facet arthropathy, lumbar spinal stenosis, right hip pain, chronic pain syndrome. Today he rates his pain a 0 out of 10. He denies any new trauma or injury. Patient states that he had 100% relief following this injection and feels like it still providing significant relief. He has been able to increase his activity with decreased pain symptoms and has improved function. Patient does state he does still have leg weakness and his knees will occasionally give out. He also states that he has pain related to arthritis in his bilateral hips. Patient states that he did go to see a orthopedic doctor for his hips in the past who stated that he needed to fix his low back symptoms before they would proceed forward with total hip replacements. Patient does state the pain in his hips is an aching, throbbing sensation with some pains radiating into his bilateral groin area. He states it is worse with increased ambulation. Patient does state that last week he was taking the trash out and going down a ramp when his legs did give out causing him to fall. Patient states he does not feel like he did any significant damage however he does believe that his hips cause weakness. He states the pain in his hips does affect his ability perform activities of daily living such as cooking and cleaning. Patient states he is interested in any help we may be able to provide for this issue. Patient has tried and failed conservative therapy such as oral medications, heat and ice and topicals, physical therapy, at home stretching and exercise for longer than 6 weeks. He does have a history of A-fib and is seen by Dr. Mclean's office. He is currently managed with gabapentin 300 mg twice a day from his primary care doctor. His Deonte has been reviewed and is appropriate. Review of Systems: General: No recent weight changes, no fever, no sleep disturbances Respiratory: No cough, no shortness of air, no recurring pulmonary infections Cardiovascular/peripheral vascular: No chest pain, no palpitations, no edema, no shortness of breath Gastrointestinal: No new onset incontinence, normal bowel movements reported Genitourinary: No new onset incontinence Musculoskeletal: Bilateral hip pain Psychiatric: [Normal mood/affect] Neurological: [Denies weakness in extremities], [denies balance issues] Objective:: Physical Exam: General: Alert and oriented x3, no acute distress, pleasant and cooperative Lungs: Respirations even and unlabored, symmetrical chest expansion Eyes: PERRL Musculoskeletal: Flexion and extension of bilateral hips somewhat guarded secondary to pain, [antalgic gait noted] Neurological: Speech clear, no gross sensory deficit Assessment:: Degenerative disc disease of lumbar spine with lumbar radiculopathy symptoms, lumbar spondylosis, lumbar facet arthropathy, lumbar spinal stenosis, right hip pain, chronic pain syndrome Plan:: Patient has had significant improvement following his transforaminal epidural steroid injection and does not require any additional injection therapy in his low back at this time. Patient is experiencing worsening pain in his bilateral hips with limited range of motion. I have discussed with the patient that he may benefit from bilateral hip intra-articular injections. Patient denies any previous hip replacements. Risk and benefits were discussed with patient and he would like to proceed forward with this plan of care. We will schedule the patient for bilateral hip intra-articular injections. Patient has been instructed to contact the clinic with any concerns before the next appointment. Dr. Henderson has reviewed this note a
[2023-08-17 11:23] VITALS: BP 128/82; PULSE 60; RESP 18; O2SAT 96; BMI 29.0
== END ==
PROVIDERS: PCP Internal Medicine; Visit Provider Nurse Practitioner Family
DX: M51.16 Intervertebral disc disorders with radiculopathy, lumbar region (principal); M47.26 Other spondylosis with radiculopathy, lumbar region; M48.061 Spinal stenosis, lumbar region without neurogenic claudication; M25.551 Pain in right hip; G89.4 Chronic pain syndrome
CPT/HCPCS: 99212; G0463

== ENCOUNTER 2023-09-02 09:13 | Day surgery (SDC) | payer MEDICARE, SELFPAY ==
[2023-09-02 09:31] VITALS: BP 127/75; PULSE 66; RESP 16; TEMP 36.1; O2SAT 95; BMI 29.2
[2023-09-02] MEDS: BUPIVACAINE 0.25% 10ML INJ 25 MG IJ (09:39)
[2023-09-02 09:40] VITALS: BP 131/67; BP 152/63; PULSE 56; PULSE 62; RESP 16; RESP 18; O2SAT 95
[2023-09-02] MEDS: LIDOCAINE 1% 5ML PF VIAL 5 ML (09:40)
[2023-09-02] MEDS: methylPREDNISolone ACETATE 80MG/ML VIAL 80 MG (09:40)
[2023-09-02 09:41] VITALS: BP 152/63; PULSE 63; RESP 18; O2SAT 96
--- NOTE | 2023-09-02 09:44 | P.PCN_ITS ---
Procedure Date: 09/02/23 Time: 09:45 Anesthesiologist:: Navin Hayes CRNA Complications:: None Pre-procedure Diagnosis:: DJD bilateral hips. Chronic bilateral hip pain. Post-procedure Diagnosis:: Same. Indications for Procedure:: Patient is a pleasant 82-year-old male comes our clinic today for intra- articular hip injections bilaterally. Patient has difficulty with ambulation secondary to bilateral hip pain. Abduction and abduction increases the pain in the bilateral hip areas. He rates his pain 7/10. Procedure Details:: Details of the procedure were explained to the patient. The patient was taken to procedure room placed in the supine position. The area over the right hip was cleaned using chlorhexidine as a cleansing solution. Using fluoroscopy guidance a 3 and half inch 22-gauge spinal needle was used to access the right hip joint without difficulty. After negative aspiration 3 cc of 1% lidocaine +3 cc of 0.25% Marcaine and 40 mg of Depo-Medrol was injected. Same procedure was carried out over the left hip. Needle was withdrawn. Band-Aid applied. Patient tolerated procedure without difficulty. There are no complications. Plan and Disposition:: Patient was discharged without incident.
== END 2023-09-02 09:40 | disposition home or self-care (01) ==
PROVIDERS: PCP Internal Medicine; Visit Provider Nurse Anesthetist, Certified Registered
DX: M16.0 Bilateral primary osteoarthritis of hip (principal); M25.551 Pain in right hip; M25.552 Pain in left hip
CPT/HCPCS: 20610; 77002; J1040

== ENCOUNTER 2023-09-12 08:20 | Outpatient (CLI) | payer MEDICARE, SELFPAY ==
--- NOTE | 2023-09-12 08:27 | XR_ITS ---
FINAL REPORT CLINICAL HISTORY: pain FINDINGS: Three views of the right knee reveal no evidence of fracture or dislocation. The bony alignment is normal. There are mild degenerative changes. Probable small loose bodies are seen posteriorly. There is no evidence of joint effusion. No localized soft tissue abnormality is identified. IMPRESSION: No acute abnormality identified. Reviewed, Interpreted and Dictated by Eddie Walker III, MD Transcribed by Sabine Soni Authenticated and [facility]
--- NOTE | 2023-09-12 08:27 | XR_ITS ---
FINAL REPORT CLINICAL HISTORY: pain FINDINGS: Three views of the left knee reveal no evidence of fracture or dislocation. The bony alignment is normal. There are mild degenerative changes. There is no evidence of joint effusion. No localized soft tissue abnormality is seen. IMPRESSION: No acute abnormality identified. Reviewed, Interpreted and Dictated by Eddie Walker III, MD Transcribed by Sabine Soni Authenticated and [facility]
== END 2023-09-12 23:59 ==
LOC: RAD 08:22
PROVIDERS: PCP Internal Medicine; Visit Provider Internal Medicine
DX: M25.561 Pain in right knee (principal); M25.562 Pain in left knee
CPT/HCPCS: 73562

== ENCOUNTER → 2023-09-14 10:14 | Outpatient (POV) | payer MEDICARE, SELFPAY ==
[2023-09-14 10:48] VITALS: PULSE 64; RESP 18; O2SAT 97; BMI 29.0
--- NOTE | 2023-09-14 10:50 | EXP.PAIN.SOA ---
[facility] Pain Management SOAP Note Subjective:: Patient is a pleasant 82-year-old male who presents today for follow-up of bilateral hip injections on 09/02/2023. We are currently treating the patient for degenerative disc disease of lumbar spine with lumbar radiculopathy symptoms, lumbar facet arthropathy, lumbar spondylosis, lumbar spinal stenosis, right hip pain, chronic pain syndrome. Today he rates his pain a 0 out of 10. Patient states he has had at least 99% improvement in his hip pains following these injection and feels like they are still providing additional relief. He states the pain is much more manageable and he can do more activities with decreased pain symptoms. Patient does state today that he has still an occasional pain in his left hip but does believe it is related to arthritis. Patient does state that he has been experiencing a burning sensation in his right day and calf area. Patient denies any new trauma or injury. Patient does state that occasionally he will also have knee pain and that he has had injections in the past years ago that did help. Patient denies any previous knee replacement. Patient is currently prescribed gabapentin 300 mg twice a day from his primary care provider. Patient does have a history of cardiac issues. His Deonte has been reviewed and is appropriate. Review of Systems: General: No recent weight changes, no fever, no sleep disturbances Respiratory: No cough, no shortness of air, no recurring pulmonary infections Cardiovascular/peripheral vascular: No chest pain, no palpitations, no edema, no shortness of breath Gastrointestinal: No new onset incontinence, normal bowel movements reported Genitourinary: No new onset incontinence Musculoskeletal: Right day pain, knee pain Psychiatric: [Normal mood/affect] Neurological: [Denies weakness in extremities], [denies balance issues] Objective:: Physical Exam: General: Alert and oriented x3, no acute distress, pleasant and cooperative Lungs: Respirations even and unlabored, symmetrical chest expansion Eyes: PERRL Musculoskeletal: Flexion and extension of lumbar [spine] somewhat guarded secondary to pain, [antalgic gait noted] Neurological: Speech clear, no gross sensory deficit Assessment:: Degenerative disc disease of lumbar spine with lumbar radiculopathy symptoms, lumbar facet arthropathy, lumbar spondylosis, lumbar spinal stenosis, chronic pain syndrome Plan:: Patient has had significant improvement following his hip injections and does not require any additional injection therapy. I have discussed with the patient in future he may benefit from intra-articular knee injections and we will follow-up with this at future visits. Patient will return to clinic in 1 month for reevaluation of symptoms and plan of care. Patient has been instructed to contact the clinic with any concerns before the next appointment. Dr. Henderson has reviewed this note and agrees with this plan of care. This note was dictated using voice recognition software and make contain errors or omissions. [facility] Disclaimer: The information contained in this section may have been updated after the patient was seen, as this information can be updated by other users. 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
== END ==
LOC: SC.PAIN 10:14
PROVIDERS: PCP Internal Medicine; Visit Provider Nurse Practitioner Family
DX: M51.16 Intervertebral disc disorders with radiculopathy, lumbar region (principal); M47.26 Other spondylosis with radiculopathy, lumbar region; M48.061 Spinal stenosis, lumbar region without neurogenic claudication; G89.4 Chronic pain syndrome; M25.551 Pain in right hip
CPT/HCPCS: 99212; G0463

== ENCOUNTER 2023-10-10 14:44 | Outpatient (CLI) | payer MEDICARE, SELFPAY ==
[2023-10-10 16:18] LABS: Alanine Aminotransferase 26 U/L (12-78); Albumin Level 3.8 g/dl (3.5-5.0); Albumin/Globulin Ratio 1.6 (1.1-1.8); Alkaline Phosphatase 83 U/L (38-126); Anion Gap 9.7 mEq/L (5-15); Aspartate Amino Transferase 36 U/L (17-59); Bilirubin,Total 0.7 mg/dl (0.2-1.3); Blood Urea Nitrogen 19 mg/dl (9-20); Carbon Dioxide 29 mmol/L (22.0-30.0); Chloride 106 mmol/L (98-107); Chol/HDL Ratio 3.2 (1-3.5); Cholesterol 139 mg/dl (140-200); Estimated Glomerular Filt Rate 93 ml/min (>60); GFR (African American) 112 ML/MIN (>60); Globulin 2.4 g/dL (1.3-3.2); Glucose 90 mg/dl (74-100); HDL Cholesterol 44 mg/dl (40-60); Potassium 4.7 mmoL/L (3.5-5.1); Sodium 140 mmol/L (136-145); Total Protein,Serum 6.2 g/dl (6.3-8.2); Triglycerides 92 mg/dl (30-150); VLDL Cholesterol 18 mg/dL (0-40)
[2023-10-10 16:29] LABS: Direct LDL Cholesterol 71.96 mg/dL (100-129)
== END 2023-10-10 23:59 ==
LOC: LAB.DROPOF 14:44
PROVIDERS: PCP Internal Medicine; Visit Provider Internal Medicine
DX: I25.10 Atherosclerotic heart disease of native coronary artery without angina pectoris; I10 Essential (primary) hypertension; E78.5 Hyperlipidemia, unspecified; J44.9 Chronic obstructive pulmonary disease, unspecified; K21.9 Gastro-esophageal reflux disease without esophagitis; M15.0 Primary generalized (osteo)arthritis; M54.41 Lumbago with sciatica, right side
CPT/HCPCS: 80053; 80061

== ENCOUNTER → 2023-10-13 08:55 | Outpatient (POV) | payer MEDICARE, SELFPAY ==
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
[2023-10-13 09:17] VITALS: BP 134/65; PULSE 64; RESP 18; O2SAT 94; BMI 29.0
== END ==
LOC: SC.PAIN 08:56
PROVIDERS: Visit Provider Nurse Practitioner Family
DX: M51.16 Intervertebral disc disorders with radiculopathy, lumbar region (principal); M47.26 Other spondylosis with radiculopathy, lumbar region; M48.061 Spinal stenosis, lumbar region without neurogenic claudication; M25.551 Pain in right hip; M25.552 Pain in left hip; G89.4 Chronic pain syndrome
CPT/HCPCS: 99212; G0463

== ENCOUNTER 2023-10-18 11:48 | Outpatient (POV) | payer MEDICARE, SELFPAY | END 2023-10-18 23:59 | disposition home or self-care (01) | LOC: SC 11:48 | PROVIDERS: PCP Internal Medicine; Visit Provider Dermatology | DX: Z00.00 Encounter for general adult medical examination without abnormal findings (principal) ==

== ENCOUNTER 2023-12-27 16:50 | Outpatient (CLI) | payer MEDICARE, SELFPAY ==
[2023-12-27 18:51] LABS: Vitamin B12 362 pg/mL (239-931)
== END 2023-12-27 23:59 | disposition home or self-care (01) ==
LOC: LAB.DROPOF 16:51
PROVIDERS: PCP Internal Medicine; Visit Provider Internal Medicine
DX: R27.0 Ataxia, unspecified (principal)
CPT/HCPCS: 82607

== ENCOUNTER 2024-01-18 07:04 | Outpatient (CLI) | payer MEDICARE, SELFPAY ==
--- NOTE | 2024-01-18 07:16 | CT_ITS ---
FINAL REPORT CLINICAL HISTORY: FALL COMPARISON: 02/15/2022 FINDINGS: Axial images of the head were obtained without contrast. Coronal reformatted images were also obtained. This study was performed with techniques to keep radiation doses as low as reasonably achievable (ALARA). Individualized dose reduction techniques using automated exposure control or adjustment of mA and/or kV according to the patient''s size were employed. There is generalized age-appropriate atrophy. Periventricular low-attenuation areas are seen consistent with mild chronic ischemic changes. There is no evidence of intracranial hemorrhage or mass. There is no evidence of acute infarct. There is no evidence of shift of the midline structures. No skull abnormality is seen on the bone window images. IMPRESSION: Atrophy and mild periventricular chronic ischemic changes. No acute intracranial abnormality identified. Reviewed, Interpreted and Dictated by Eddie Walker III, MD Transcribed by Mayra Almazan Authenticated and [facility]
== END 2024-01-18 23:59 | disposition home or self-care (01) ==
LOC: RAD 07:05
PROVIDERS: PCP Internal Medicine; Visit Provider Internal Medicine
DX: R27.0 Ataxia, unspecified (principal); S22.31XA Fracture of one rib, right side, initial encounter for closed fracture; W19.XXXA Unspecified fall, initial encounter
CPT/HCPCS: 70450

== ENCOUNTER 2024-03-13 23:29 | Emergency (ER) | payer MEDICARE, SELFPAY ==
[2024-03-13 23:29] VITALS: BP 191/86; PULSE 61; RESP 18; TEMP 37.1; O2SAT 96; BMI 28.5
--- NOTE | 2024-03-13 23:30 | ECG_ITS ---
APPROVED REPORT Exam: Resting ECG HR:57 bpm ECG Measurements Heart Rate 57 AXES FL 154 P 82 QRSd 94 QRS 54 QT 405 T 61 QTc 400 Conclusion SINUS BRADYCARDIA BORDERLINE ECG UNCONFIRMED REPORT Baseline artifact complicates interpretation, no STEMI Electronically signed by : ASHLYN DUBON, 03/14/2024 07:50:31
[2024-03-13 23:43] VITALS: PULSE 57
--- NOTE | 2024-03-13 23:45 | CT_ITS ---
PROCEDURE INFORMATION: Exam: CT Abdomen And Pelvis With Contrast Exam date and time: 03/14/2024 12:14 AM Age: 83 years old Clinical indication: Abdominal pain; Additional info: Epigastric discomfort, HX hiatal and gallstone TECHNIQUE: Imaging protocol: Computed tomography of the abdomen and pelvis with contrast. Radiation optimization: All CT scans at this facility use at least one of these dose optimization techniques: automated exposure control; mA and/or kV adjustment per patient size (includes targeted exams where dose is matched to clinical indication); or iterative reconstruction. Contrast material: ISOVUE; Contrast volume: 75 ml; Contrast route: IV; COMPARISON: 1. CT BONY PELVIS 05/20/2023 10:[address] abdomen pelvis wo con 09/13/2018 10:13 PM 3. CR XR HIP LT 2-3V W/PELVIS 04/12/2023 11:06 AM FINDINGS: Lungs: Scattered areas of bronchial wall thickening which are likely chronic inflammatory. A few areas of subpleural reticulation are noted, nonspecific. Diaphragm: There is a small hiatal hernia. Liver: Normal. Gallbladder and biliary ducts: The gallbladder is somewhat distended with stones, consider right upper quadrant ultrasound for further evaluation. Pancreas: Normal. Spleen: Normal. Adrenal glands: The adrenal glands appear normal. Kidneys and ureters: There are no soft tissue renal masses or hydronephrosis. Stomach and bowel: There is large volume stool throughout the colon. Appendix: No evidence of appendicitis. Intraperitoneal space: Unremarkable. Vasculature: There is atherosclerotic disease of the visualized aorta and its major branch vessels. The aorta demonstrates significant tortuosity. Lymph nodes: No lymphadenopathy. Urinary bladder: Unremarkable as visualized. Reproductive: No acute process. Bones/joints: There is diffuse degenerative disease of the visualized osseous structures. Soft tissues: There are fat containing bilateral inguinal hernias. IMPRESSION: 1. The gallbladder is somewhat distended with stones, consider right upper quadrant ultrasound for further evaluation. 2. There is a small hiatal hernia.
--- NOTE | 2024-03-13 23:45 | XR_ITS ---
PROCEDURE INFORMATION: Exam: XR Chest Exam date and time: 03/14/2024 12:00 AM Age: 83 years old Clinical indication: Pain; Chest pressure; Additional info: Cp TECHNIQUE: Imaging protocol: Radiologic exam of the chest. Views: 1 view. COMPARISON: CR XR CHEST 2V 02/24/2022 5:19 PM FINDINGS: Lungs: No evidence of acute pulmonary disease or infiltrates Pleural spaces: No large effusion or pneumothorax. Heart/Mediastinum: No evidence of mediastinal widening or cardiac silhouette enlargement; the mediastinum and heart appear within normal limits for contour and size. Bones/joints: No evidence of acute osseous abnormalities within the visualized portions of the thoracic spine and ribs. Osseous structures appear appropriate for patient age. IMPRESSION: No dense parenchymal consolidation, pleural effusion, or pneumothorax.
--- NOTE | 2024-03-13 23:47 | ED_ITS ---
Discharge Plan Disposition Patient Disposition: Home, Self-Care Condition: Good Prescriptions Prescriptions: No Action atenolol 25 mg tablet 25 mg PO DAILY atorvastatin [Lipitor] 80 mg tablet 80 mg PO DAILY albuterol sulfate 90 mcg/actuation HFA aerosol inhaler 2 inh INHALATION Q6H PRN (Reason: shortness of breath or wheezing) 90 Days Qty: 8.5 3RF Trelegy Ellipta 200-62.5-25 mcg blister with device 1 inh inhalation DAILY 90 Days Qty: 90 2RF finasteride 5 mg tablet 5 mg PO DAILY ipratropium-albuterol 0.5 mg-3 mg(2.5 mg base)/3 mL solution for nebulization 3 ml INHALATION Q6H PRN (Reason: shortness of breath) 90 Days Qty: 180 3RF potassium chloride 8 mEq capsule, extended release 8 meq PO DAILY amlodipine 2.5 mg tablet See Rx Instructions .ROUTE .COMPLEX Qty: 90 1RF Dose Instruction: TAKE 1 TABLET BY MOUTH ONCE DAILY Rx Instructions: TAKE 1 TABLET BY MOUTH ONCE DAILY aspirin 81 MG tablet,delayed release (DR/EC) 81 mg PO DAILY furosemide 20 MG tablet 20 mg PO DAILY gabapentin 300 mg capsule 300 mg PO Q12H PRN (Reason: pain) Qty: 12 0RF naproxen 500 mg tablet 500 mg PO Q12H PRN (Reason: pain) Qty: 20 0RF omeprazole 40 MG capsule,delayed release(DR/EC) 40 mg PO DAILY tamsulosin 0.4 MG capsule 0.4 mg PO HS ketoconazole 2 % cream 1 applic topical BID fluticasone propionate [Flonase Allergy Relief] 50 mcg/actuation spray,suspension 2 spray intranasal DAILY Rx Instructions: administer into each nostril Referrals Follow up/Referrals: Liban Aguilera MD [Primary Care Provider] - See instructions Bob Yu MD [Staff Physician] - See instructions (Presented to ER again for acute epigastric pain, has persistent findings of cholelithiasis and gallbladder distention without acute cholecystitis) Activity Restrictions/Add. Instructions Additional Instructions/Restrictions: You were evaluated in the ER. You are appropriate for discharge at this time. Continue taking all home medications as previously prescribed. Follow-up with general surgery for reevaluation, also make an appointment with your primary care physician for reevaluation in a few days. Return to the ER with new, worsening, or otherwise concerning symptoms. Clinical Impressions Clinical Impression: Chest pain, Abdominal pain, epigastric, Cholelithiasis, Hernia, hiatal Discharge ED Provider: Zoë Danielson General Chief Complaint: Chest Pain Stated Complaint: CP Time Seen by Provider: 03/13/24 23:30 Mode of Arrival: Ambulatory Source of Information: Patient Limitations: No Limitations Description of Symptoms (Recalled from ER Triage Doc. by RN): Pt presents with complaints of chest pain and epigastric pain that began appox 20 min ago. Pt denies any SOA, or cardiac hx. History of Present Illness HPI narrative: 83-year-old male with history of hiatal hernia, known cholelithiasis but no cholecystectomy presents to the ER for concerns of chest discomfort and epigastric pain. Patient states he had mild epigastric pain all day, however it worsened approximately 20 minutes prior to arrival. It is already completely subsided and patient states he feels back to normal at this time. He has no cardiac history, no history of stroke. He denies any difficulty breathing though he states he has COPD. Patient has no other associated symptoms at this time and believes his symptoms are related to his hiatal hernia and gallstones but wanted to be safe. Related Data Home Medications Medication Instructions Recorded Confirmed omeprazole 40 mg capsule,delayed 40 mg PO DAILY GERD 01/30/18 02/08/24 release tamsulosin 0.4 mg capsule 0.4 mg PO HS prostate 10/10/18 02/08/24 atenolol 25 mg tablet 25 mg PO DAILY A FIB 06/28/19 02/08/24 finasteride 5 mg tablet 5 mg PO DAILY BPH 03/05/20 02/08/24 aspirin 81 mg tablet,delayed 81 mg PO DAILY heart health 12/09/20 02/08/24 release furosemide 20 mg tablet 20 mg PO DAILY Edema 12/09/20 02/08/24 atorvastatin 80 mg tablet (Lipitor) 80 mg PO DAILY Cholesterol 02/25/22 02/08/24 potassium chloride 8 mEq 8 meq PO DAILY Supplement 09/14/22 02/08/24 capsule,extended release fluticasone propionate 50 2 spray intranasal DAILY allergies 01/05/23 02/08/24 mcg/actuation nasal spray,suspension (Flonase Allergy Relief) ketoconazole 2 % topical cream 1 applic topical BID Skin condition 01/05/23 02/08/24 Previous Rx's Medication Instructions Recorded ipratropium 0.5 mg-albuterol 3 mg 3 ml inhalation Q6H PRN shortness 12/04/21 (2.5 mg base)/3 mL nebulization of breath 90 days #180 mL soln albuterol sulfate 90 mcg/actuation 2 inh inhalation Q6H PRN shortness 07/20/22 aerosol inhaler of breath or wheezing 90 days #8.5 grams amlodipine 2.5 mg tablet See Rx Instructions .Route 04/12/23 .COMPLEX #90 tabs gabapentin 300 mg capsule 300 mg PO Q12H PRN pain #12 caps 06/21/23 naproxen 500 mg tablet 500 mg PO Q12H PRN pain #20 tabs 06/21/23 fluticasone fur. 200 mcg-umeclid 1 inh inhalation DAILY 90 days #90 12/29/23 62.5 mcg-vilant 25 mcg ea inhalat.powder (Trelegy Ellipta) Allergies Allergy/AdvReac Type Severity Reaction Status Date / Time diphenhydramine Allergy na Verified 02/08/24 08:56 [From Benadryl] [facility] Disclaimer: The information contained in this section may have been updated after the patient was seen, as this information can be updated by other users. Medical History Pneumonia Atrial fibrillation Onychomycosis Allergic rhinitis Asthma-chronic obstructive pulmonary disease overlap syndrome Stopped smoking with greater than 30 pack year history Asthma-COPD overlap syndrome Sinus bradycardia COPD (chronic obstructive pulmonary disease) Surgical History History of colonoscopy History of prostate surgery Family History Other No significant family history Social History Smoking Status: Former smoker tobacco type: cigarettes packs per day: 1 second hand exposure: No alcohol intake: never substance use type: denies use current occupational status: retired Travel in the last 8 weeks: None household members: none housing: house current occupational exposures/hazards: No caffeine: Yes ROS Obtained: Yes All systems reviewed & no additional complaints except as documented Constitutional Constitutional: Denies chills, Denies fever(s), Denies headache(s) and Denies weakness Eyes Eyes: Denies change in vision ENT Ears, Nose, Mouth, and Throat: Denies dizziness, Denies headache(s), Denies nasal congestion and Denies sore throat Cardiovascular Cardiovascular: Reports chest pain, Denies dyspnea and Denies leg edema Respiratory Respiratory: Denies cough and Denies dyspnea Gastrointestinal Gastrointestingal: Reports abdominal pain; Denies constipation, diarrhea, nausea or vomiting Genitourinary Male Genitourinary: Denies difficulty urinating Musculoskeletal Musculoskeletal: Denies arthralgias, Denies myalgias, Denies numbness and Denies tingling Integumentary/Breasts Skin/Breast: Denies change in pigmentation Neurologic Neurologic: Denies dizziness, Denies headache(s), Denies numbness, Denies tingling and Denies weakness Physical Exam General General appearance: alert and in no apparent distress Head Head exam: atraumatic and normocephalic Eye Eye exam: Present PERRL and EOMI ENT ENT exam: Present mucous membranes moist Neck Neck exam: Present normal inspection and full ROM Chest Chest inspection: Present symmetric chest wall rise Respiratory Respiratory exam: Present normal lung sounds bilaterally; Absent respiratory distress, wheezes or stridor Cardiovascular Cardiovascular exam: Present regular rate and normal rhythm Abdominal Exam Abdominal exam: Present soft; Absent distention, tenderness, guarding or rebound Extremities Exam Extremities exam: Present full ROM; Absent edema Neurological Exam Neurological exam: Present alert and oriented X3; Absent motor sensory deficit Psychiatric Psychiatric exam: Present normal affect and normal mood Skin Skin exam: Present warm and dry HEART Score HEART Score HEART Score assessment performed?: Yes History (anamnesis): Slightly suspicious ECG: Non-specific disturbance Age: >65 years Risk factors: 1-2 risk factors Troponin: </= normal limit HEART Score: 4 Critical Care Critical Care Time Critical Care Time: No Medical Decision Making Deonte Inquiry Pt receiving controlled substance: No Vital Signs Vital Signs: 03/13/24 23:29 03/13/24 23:43 03/14/24 00:00 Temperature 98.7 F Temperature Source Oral Pulse Rate 57 L 59 L Pulse Rate [Left] 61 Respiratory Rate 18 Blood Pressure 128/54 L Blood Pressure [Right Arm] 191/86 H Blood Pressure Mean [Right Arm] 121 Blood Pressure Source Blood Pressure Source [Right Arm] Automatic Cuff Blood Pressure Position Blood Pressure Position [Right Arm] Sitting 02 Sat by Pulse Oximetry 96 96 Oxygen Delivery Method Room Air 03/14/24 00:30 03/14/24 03:13 Temperature 97.9 F Temperature Source Oral Pulse Rate 58 L 60 Pulse Rate [Left] Respiratory Rate 17 Blood Pressure 130/60 129/73 Blood Pressure [Right Arm] Blood Pressure Mean [Right Arm] Blood Pressure Source Automatic Cuff Blood Pressure Source [Right Arm] Blood Pressure Position Sitting Blood Pressure Position [Right Arm] 02 Sat by Pulse Oximetry 96 Oxygen Delivery Method Room Air Lab Data Labs: Lab Results 03/13/24 23:37: WBC 8.0, RBC 4.42 L, Hgb 13.7 L, Hct 41.7 L, MCV 94.5 H, MCH 31.0, MCHC 32.8, RDW 13.7, Plt Count 257, MPV 7.2 L, Neut % (Auto) 63.7, Lymph % (Auto) 26.6, [place] % (Auto) 6.4, Eos % (Auto) 2.5, Baso % (Auto) 0.9, Neut # (Auto) 5.1, Lymph # (Auto) 2.1, [place] # (Auto) 0.5, Eos # (Auto) 0.2, Baso # (Auto) 0.1, PT 10.2, INR 0.90, Sodium 139, Potassium 4.5, Chloride 104, Carbon Dioxide 30, Anion Gap 9.5, BUN 20, Creatinine 1.10, Estimated Creat Clear 61, Estimated GFR 64, Est GFR ( Amer) 77, Glucose 120 H, Calcium 9.1, Total Bilirubin 0.6, AST 56, ALT 37, Alkaline Phosphatase 79, Troponin I < 0.01, Total Protein 6.8, Albumin 3.9, Globulin 2.9, Albumin/Globulin Ratio 1.3, Lipase 119 03/14/24 02:26: Troponin I < 0.01 03/13/24 23:37 03/13/24 23:37 Response Orders (Tests/Meds): ED MEDICATIONS Discontinued Medications Generic Name Dose Route Start Last Admin Trade Name Freq PRN Reason Stop Dose Admin Iopamidol 75 ml 03/14/24 00:18 03/14/24 00:19 Iopamidol-370 (76%);100ml Bottle IV 03/14/24 00:19 75 ml ONCE ONE Administration Sodium Chloride 10 ml 03/14/24 00:18 03/14/24 00:19 Sodium Chloride 0.9% 10ml Syr (Rad Only) IV 04/13/24 00:17 10 ml NEEDED PRN Administration Maintain IV Site ORDERS Category Date Time Status CT abdomen pelvis w con Stat Cat Scan 03/13/24 23:45 Completed CXR --portable [XR chest portable] Stat Exams 03/13/24 23:45 Completed CBC w/Auto Diff [Complete Blood Count Auto Diff] Stat Lab 03/13/24 23:37 Completed CMP [Comprehensive Metabolic Panel] Stat Lab 03/13/24 23:37 Completed Lipase Stat Lab 03/13/24 23:37 Completed PT INR [Prothrombin Time INR] Stat Lab 03/13/24 23:37 Completed Trop I [Troponin I] Stat Lab 03/13/24 23:37 Completed Troponin I Q3H Lab 03/14/24 02:26 Completed MDM Narrative Medical Decision Narrative: In summary, this 83-year-old male presents to the emergency department today with chest pain, epigastric discomfort that has fully subsided upon his presentation to the ER. On initial evaluation patient is hemodynamically stable, afebrile, heart rate between 55 and 65 on the monitor, no peripheral edema, asymptomatic at this time, abdomen soft, nontender, nondistended, no rebound or guarding remainder of exam benign. Differential diagnosis includes but is not limited to hiatal hernia, cholelithiasis, cholecystitis, pancreatitis, esophageal spasm, ACS, pneumothorax. Based on these concerns, I ordered cardiac workup, chest x-ray, CT abdomen pelvis, serum labs. ECG personally interpreted demonstrates sinus bradycardia, rate 57, artifact makes EKG slightly difficult to interpret however there is no STEMI, IA normal, QTc normal, normal axis. Repeat ECG will be performed. Labs personally reviewed demonstrate no leukocytosis, slight anemia with hemoglobin 13.7, normal platelets, PT/INR normal, CMP is without actionable abnormality, initial troponin undetectably low at less than 0.01, lipase normal at 119 which is reassuring against pancreatitis. No transaminitis, normal alkaline phosphatase, normal bilirubin. XR personally interpreted demonstrates no acute intrathoracic abnormality, see radiology read for interpretation. CT imaging personally interpreted demonstrate gallstones with gallbladder distention but no obvious pericholecystic fluid or edema, see radiology read for final interpretation. Radiology read does discuss small hiatal hernia which was previously known for this patient. Findings are similar to previous abdominal imaging according to my review of previous records. Repeat ECG personally interpreted demonstrates sinus bradycardia, rate 53, normal IA and QTc, normal axis, no STEMI, no dynamic changes. On reassessment patient continues to be stable, he has not had any recurrence of symptoms and continues to be asymptomatic. Repeat troponin also undetectably low at less than 0.01, no delta, further reassurance against evolving MA. Patient has tolerated oral intake and I believe is appropriate for discharge at this time. He has been referred back to neurosurgery for discussion of cholelithiasis given he seems to have intermittent symptoms without acute cholecystitis. Patient was given instructions on symptomatic management, follow up instructions, and return precautions for the emergency department. Patient indicated understanding and was discharged in stable condition.
[2024-03-13 23:55] LABS: Basophils # 0.1 K/mm3 (0-0.2); Basophils % 0.9 % (0.1-2.0); Eosinophils # 0.2 K/mm3 (0.0-0.4); Eosinophils % 2.5 % (0.1-12.0); Hematocrit 41.7 % (42.0-52.0); Hemoglobin 13.7 g/dL (14.1-18.0); Lymphocytes # 2.1 K/mm3 (0.7-4.5); Lymphocytes % 26.6 % (10-50); Mean Corpuscular HGB Conc 32.8 g/dL (31.8-35.4); Mean Corpuscular Volume 94.5 fl (80-94); Mean Platelet Volume 7.2 fl (7.4-10.4); Monocytes # 0.5 K/mm3 (0.1-1.0); Monocytes % 6.4 % (1.7-9.3); Neutrophils # 5.1 K/mm3 (1.8-7.8); Neutrophils % 63.7 % (37.0-80.0); Platelet Count 257 K/mm3 (142-424); Red Blood Count 4.42 M/mm3 (4.60-6.20); Red Cell Distribution Width 13.7 % (11.5-17.5)
[2024-03-13 23:57] LABS: Alanine Aminotransferase 37 U/L (12-78); Albumin Level 3.9 g/dl (3.5-5.0); Albumin/Globulin Ratio 1.3 (1.1-1.8); Alkaline Phosphatase 79 U/L (38-126); Anion Gap 9.5 mEq/L (5-15); Aspartate Amino Transferase 56 U/L (17-59); Bilirubin,Total 0.6 mg/dl (0.2-1.3); Blood Urea Nitrogen 20 mg/dl (9-20); Calcium 9.1 mg/dl (8.4-10.2); Carbon Dioxide 30 mmol/L (22.0-30.0); Chloride 104 mmol/L (98-107); Creatinine Clearance Estimated 61 mL/min (50-200); Estimated Glomerular Filt Rate 64 ml/min (>60); GFR (African American) 77 ML/MIN (>60); Globulin 2.9 g/dL (1.3-3.2); Glucose 120 mg/dl (74-100); Lipase 119 U/L (23-300); Potassium 4.5 mmoL/L (3.5-5.1); Sodium 139 mmol/L (136-145); Total Protein,Serum 6.8 g/dl (6.3-8.2)
[2024-03-14] VITALS: BP 128/54; PULSE 59; O2SAT 96
[2024-03-14 00:01] LABS: Prothrombin Time 10.2 seconds (10.1-12.5)
[2024-03-14 00:09] LABS: Troponin I < 0.01 ng/ml (0.00-0.034)
[2024-03-14] MEDS: IOPAMIDOL-370 (76%);100ML BOTTLE 75 ML IV (00:19)
[2024-03-14] MEDS: SODIUM CHLORIDE 0.9% 10ML SYR (RAD ONLY) 10 ML IV (00:19)
[2024-03-14 00:30] VITALS: BP 130/60; PULSE 58; O2SAT 96
--- NOTE | 2024-03-14 02:28 | ECG_ITS ---
APPROVED REPORT Exam: Resting ECG HR:53 bpm ECG Measurements Heart Rate 53 AXES GA 153 P 60 QRSd 98 QRS 30 QT 435 T 38 QTc 419 Conclusion SINUS BRADYCARDIA BORDERLINE ECG UNCONFIRMED REPORT No STEMI Electronically signed by : ASHLYN DUBON, 03/14/2024 07:50:58
--- NOTE | 2024-03-14 02:49 | PC.NURSE ---
rounded on patient, assisted him to sitting on the side of the bed and given a cup of coffee
[2024-03-14 02:56] LABS: Troponin I < 0.01 ng/ml (0.00-0.034)
[2024-03-14 03:13] VITALS: BP 129/73; PULSE 60; RESP 17; TEMP 36.6; O2SAT 95
== END 2024-03-14 03:13 | disposition home or self-care (01) ==
PROVIDERS: Emergency Provider Emergency Medicine; PCP Internal Medicine
DX: R10.13 Epigastric pain (principal); R07.9 Chest pain, unspecified; R00.1 Bradycardia, unspecified; K80.20 Calculus of gallbladder without cholecystitis without obstruction; K44.9 Diaphragmatic hernia without obstruction or gangrene; J44.9 Chronic obstructive pulmonary disease, unspecified; Z87.891 Personal history of nicotine dependence
CPT/HCPCS: 71045; 74177; 80053; 83690; 84484; 85025; 85610; 93005; 99285; Q9967

== ENCOUNTER 2024-04-02 06:44 | Day surgery (SDC) | payer MEDICARE, SELFPAY ==
[2024-03-29 10:46] VITALS: BMI 28.5
[2024-04-02] VITALS (9 sets, daily range): BP systolic 128–179; BP diastolic 68–95; PULSE 57–64; RESP 15–18; TEMP 36.1–36.5; O2SAT 93–98
--- NOTE | 2024-04-02 07:31 | P.PNANES_ITS ---
[facility] Disclaimer: The information contained in this section may have been updated after the patient was seen, as this information can be updated by other users. Medical History Pneumonia Atrial fibrillation Onychomycosis Allergic rhinitis Asthma-chronic obstructive pulmonary disease overlap syndrome Stopped smoking with greater than 30 pack year history Asthma-COPD overlap syndrome Sinus bradycardia COPD (chronic obstructive pulmonary disease) Surgical History History of cardiac catheterization History of colonoscopy History of prostate surgery Family History Other No significant family history Social History Smoking Status: Former smoker tobacco type: cigarettes packs per day: 1 second hand exposure: No alcohol intake: never substance use type: denies use current occupational status: retired Travel in the last 8 weeks: None household members: none housing: house current occupational exposures/hazards: No caffeine: Yes [facility] Anesthesia Checklist Patient Identification Patient Identification: Arm Band and Verbal (Name & ) Structural Data Admitted From: Home Planned Operative Procedure/s: Lap. cholecystectomy Consent for Planned Operative Procedure(s) Verified: Yes Verified Documents: Surgical Consent and History and Physical NPO Status Verified Time NPO: 00:00 Chart Verification Results Verified: CBC and BMP Additional verifications Anesthesia Reactions: No Hx Blood Transfusions: No Blood Transfusion Reaction: No Airway Assessment Mallampati Score:: Class II C-Spine Mobility Assessed: Yes TMJ Mobility Assessed: Yes Dentition: Edentulous Neurological Assessment Level of Consciousness: Awake Hx Seizures: No Numbness or tingling in extremities: No Anesthesia Plan Anesthesia Risk discussed: Yes Anesthesia Plan: Verified ASA Class: III Anesthesia Type: General
[2024-04-02] MEDS: CEFAZOLIN SODIUM 2 GM in 0.9 % SODIUM CHLORIDE 100 ML IV (08:30)
[2024-04-02] MEDS: LIDOCAINE 1% 20ML MDV 20 ML (08:41)
--- NOTE | 2024-04-02 09:20 | EXP.OP.NOTE ---
Date of procedure: 04/02/24 Pre-op Diagnosis:: Symptomatic cholelithiasis Post-op Diagnosis:: Chronic calculus cholecystitis Procedure performed:: Laparoscopic cholecystectomy Surgeon:: Bob Yu MD VOICE DATA COMMUNICATIONS ENGINEER:: Cole Ivey Anesthesia: GETA Estimated blood loss (mL): 15 Operative findings:: Severe pericholecystic fat stranding with adhesions of small bowel, stomach, and colon to anterior gallbladder wall Operative note:: After informed consent was obtained, the patient was taken to the operating room and placed in the supine position. General anesthesia was induced and the abdomen was prepped and draped in a sterile fashion. After infiltration with local anesthetic an infraumbilical incision was made. A Veress needle was placed in position. The abdomen was insufflated. A 5 mm optical trocar was placed in position. Under direct visualization, a 12 mm trocar was placed in the subxiphoid position and 2 additional 5 mm trocars were placed in the right upper quadrant. The gallbladder was elevated up and over the liver margin. Severe pericholecystic fat stranding noted. Multiple adhesions along the anterior gallbladder wall/serosa to the adjacent small bowel, colon and stomach were noted. Careful blunt dissection was utilized to free the adhesions. The tissue around the cystic artery was carefully dissected. 3 clips were placed proximally and the artery was transected with harmonic jose g distally. The tissue around the cystic duct was then dissected. 3 clips were placed proximally and the duct was transected with harmonic jose g. Harmonic jose g were then utilized to dissect the gallbladder away from the liver margin. The gallbladder was placed in a retrieval bag and removed through the subxiphoid trocar site. The right upper quadrant was thoroughly irrigated. No active bleeding or bile leak was noted. Fascia at the subxiphoid trocar site was reapproximated utilizing the NeoClose device. The remaining trocars were removed. All wounds were irrigated and skin was closed with 4-0 Monocryl in a subcuticular fashion. Steri-Strips were applied. The patient's anesthetic agents were reversed and extubation was completed prior to transfer to recovery in stable condition. Condition: stable Disposition: PACU Specimens:: Gallbladder Complications:: No immediate
--- NOTE | 2024-04-02 09:33 | EXP.ANES.I ---
[facility] Anesthesia Record Part I Anesthesia Record I Intake, IV Amount: 1,000 Hydration: Adequate Estimated blood loss (mL): 10 Urine output (mL): 0 Blood Products used (#): none Blood Pressure: 175/95 SaO2: 95 Pulse Rate: 57 Airway Patency: Patent Respiratory Rate: 16 Temperature: 97.7 F Patient is:: Drowsy and Stable Stable to PACU at:: 09:30
[2024-04-02] MEDS: MEPERIDINE 25MG/ML 1ML SYRINGE 25 MG IV (09:49)
[2024-04-02] MEDS: ONDANSETRON 4MG/2ML VIAL 4 MG IV (09:49)
--- NOTE | 2024-04-02 09:55 | SUR.PHASEI ---
Incentive spirometer given to patient. Reviewed instructions on how to use. Pt was able to use IS correctly by demonstrating back to nurse. IS Max = 2250.
--- NOTE | 2024-04-03 09:24 | EXP.ANES.II ---
[facility] Anesthesia Record Part II Anesthesia Record Part II Discharge Time: 10:00 Destination: Surgical Day Care (OP Surgery) PACU nurse assessment reviewed?: Yes Patient Condition:: Good Anesthesia Complications:: None Swallowing reflex intact?: Yes Airway Patency: Patent Cyanosis?: No Blood Pressure: 150/71 SaO2: 98 Respiratory Rate: 18 Pulse Rate: 64 Temperature: 97 F Mental Status: Alert & Oriented Pain level:: 4 Nausea and/or vomitting:: None Intake, IV Amount: 0 Hydration: Adequate
[2024-04-03 09:25] VITALS: BP 150/71; PULSE 64; RESP 18; TEMP 36.1; O2SAT 98
== END 2024-04-02 10:35 | disposition home or self-care (01) ==
PROVIDERS: PCP Internal Medicine; Visit Provider Surgery
PROC: 0FT44ZZ Resection of Gallbladder, Percutaneous Endoscopic Approach (ICD-10-PCS; CPT 47562; principal; 2024-04-02 08:45)
DX: R10.13 Epigastric pain (principal); K80.10 Calculus of gallbladder with chronic cholecystitis without obstruction
CPT/HCPCS: 47562; 88304; 96374; J3490; J0690; J1100; J2175; J2405; J3010

== ENCOUNTER 2024-04-09 09:00 | Outpatient (CLI) | payer MEDICARE, SELFPAY ==
[2024-04-09 17:59] LABS: Alanine Aminotransferase 19 U/L (12-78); Albumin Level 3.7 g/dl (3.5-5.0); Albumin/Globulin Ratio 1.4 (1.1-1.8); Alkaline Phosphatase 81 U/L (38-126); Anion Gap 10.2 mEq/L (5-15); Aspartate Amino Transferase 29 U/L (17-59); Bilirubin,Total 0.9 mg/dl (0.2-1.3); Blood Urea Nitrogen 20 mg/dl (9-20); Carbon Dioxide 29 mmol/L (22.0-30.0); Chloride 103 mmol/L (98-107); Chol/HDL Ratio 2.5 (1-3.5); Cholesterol 123 mg/dl (140-200); Estimated Glomerular Filt Rate 92 ml/min (>60); GFR (African American) 112 ML/MIN (>60); Globulin 2.7 g/dL (1.3-3.2); Glucose 70 mg/dl (74-100); HDL Cholesterol 49 mg/dl (40-60); Potassium 4.2 mmoL/L (3.5-5.1); Sodium 138 mmol/L (136-145); Total Protein,Serum 6.4 g/dl (6.3-8.2); Triglycerides 79 mg/dl (30-150); VLDL Cholesterol 16 mg/dL (0-40)
[2024-04-09 18:09] LABS: Direct LDL Cholesterol 53.81 mg/dL (100-129)
[2024-04-09 18:28] LABS: Prostate Specific Ag Screen 5.8 ng/ml (0.0-4.0)
== END 2024-04-09 23:59 | disposition home or self-care (01) ==
LOC: LAB.DROPOF 04-11 09:01
PROVIDERS: PCP Internal Medicine; Visit Provider Internal Medicine
DX: I10 Essential (primary) hypertension (principal); E78.2 Mixed hyperlipidemia; E78.5 Hyperlipidemia, unspecified; Z12.5 Encounter for screening for malignant neoplasm of prostate
CPT/HCPCS: 80053; 80061; G0103

== ENCOUNTER 2024-05-22 10:10 | Outpatient (CLI) | payer MEDICARE, SELFPAY ==
[2024-05-22 14:57] LABS: Prostate Specific Ag, Diagnost 4.28 ng/ml (0.0-4.0)
== END 2024-05-22 23:59 | disposition home or self-care (01) ==
LOC: LAB.DROPOF 05-23 09:27
PROVIDERS: PCP Internal Medicine; Visit Provider Internal Medicine
DX: R97.20 Elevated prostate specific antigen [PSA] (principal); N41.1 Chronic prostatitis; N40.1 Benign prostatic hyperplasia with lower urinary tract symptoms; N13.8 Other obstructive and reflux uropathy
CPT/HCPCS: 84153

== ENCOUNTER 2024-06-08 13:17 | Emergency (ER) | payer MEDICARE, SELFPAY ==
[2024-06-08 13:30] VITALS: BP 122/62; PULSE 76; RESP 18; TEMP 36.6; O2SAT 96; BMI 27.8
--- NOTE | 2024-06-08 13:39 | ED_ITS ---
Discharge Plan Disposition Patient Disposition: Home, Self-Care Condition: Good Prescriptions Prescriptions: No Action atenolol 25 mg tablet 25 mg PO DAILY atorvastatin [Lipitor] 80 mg tablet 80 mg PO DAILY albuterol sulfate 90 mcg/actuation HFA aerosol inhaler 2 inh INHALATION Q6H PRN (Reason: shortness of breath or wheezing) 90 Days Qty: 8.5 3RF Trelegy Ellipta 200-62.5-25 mcg blister with device 1 inh inhalation DAILY 90 Days Qty: 90 2RF finasteride 5 mg tablet 5 mg PO DAILY ipratropium-albuterol 0.5 mg-3 mg(2.5 mg base)/3 mL solution for nebulization 3 ml INHALATION Q6H PRN (Reason: shortness of breath) 90 Days Qty: 180 3RF potassium chloride 8 mEq capsule, extended release 8 meq PO DAILY ciprofloxacin HCl 500 mg tablet 500 mg PO BID 14 Days Qty: 28 0RF amlodipine 2.5 mg tablet See Rx Instructions .ROUTE .COMPLEX Qty: 90 1RF Dose Instruction: TAKE 1 TABLET BY MOUTH ONCE DAILY Rx Instructions: TAKE 1 TABLET BY MOUTH ONCE DAILY aspirin 81 MG tablet,delayed release (DR/EC) 81 mg PO DAILY furosemide 20 MG tablet 20 mg PO DAILY gabapentin 300 mg capsule 300 mg PO Q12H PRN (Reason: pain) Qty: 12 0RF naproxen 500 mg tablet 500 mg PO Q12H PRN (Reason: pain) Qty: 20 0RF omeprazole 40 MG capsule,delayed release(DR/EC) 40 mg PO DAILY tamsulosin 0.4 MG capsule 0.4 mg PO HS ketoconazole 2 % cream 1 applic topical BID fluticasone propionate [Flonase Allergy Relief] 50 mcg/actuation spray,suspension 2 spray intranasal DAILY Rx Instructions: administer into each nostril Referrals Follow up/Referrals: Liban Aguilera MD [Primary Care Provider] - See instructions Activity Restrictions/Add. Instructions Additional Instructions/Restrictions: *Monitor Temp, Over the counter Motrin or Tylenol as directed/as needed Tylenol every 4 hours and Motrin every 6 hours (as long as your family doctor has told you that you can take it) for fever or pain. and straight to ER if unable to lower temp less than 101.0 after medication given *Warm salt water gargles may help to soothe the throat *Throat Lozenges? *Warm fluids like tea with honey may help to soothe the throat? *Sleep elevated *Humidifier/Vaporizer Follow up IMMEDIATELY for new or worsening symptoms or no Noticeable improvement over the next 48-72 hours. 911 for difficulty breathing or swallowing You were tested for today for COVID19 your test result should be back in the next 24 hours, you may check your results on the [facility] [employer] [facility] Portal Clinical Impressions Clinical Impression: Viral syndrome Instructions Patient Instructions: DI for Viral Syndrome Print Language Print Language: Kittitian Discharge ED Provider: Anca Barrios [facility] HPI General Stated complaint: chills, sweaty, fatigue Mode of Arrival: Ambulatory Source of Information: Patient Limitations: No Limitations Time Seen by Provider: 06/08/24 13:39 Description of Symptoms (Recalled from Triage Doc. by RN): Reports chills and not feeling well. HEENT Symptoms (Recalled from RN notes): Yes Resp Symptoms (Recalled from RN notes): No Skin Symptoms (Recalled from RN notes): No MS Symptoms (Recalled from RN notes): No Functional Status (Recalled from RN notes): wnl History of Present Illness Provider Complaint: Patient states that he fell asleep last night in his recliner with the ceiling fan going and when he woke up his nose was congested and he was having chills and body aches, states he has arthritis so he is always aching so not sure if he may be getting sick or the ceiling fan caused him to chill, states after he woke up he got under the blankets and the chills stopped but he was worried about flu and COVID since he hasnt been able to get his flu shot yet so he came in to get checked Related Data Home Medications ?Medication ?Instructions ?Recorded ?Confirmed omeprazole 40 mg capsule,delayed 40 mg PO DAILY GERD 01/30/18 05/22/24 release tamsulosin 0.4 mg capsule 0.4 mg PO HS prostate 10/10/18 05/22/24 atenolol 25 mg tablet 25 mg PO DAILY A FIB 06/28/19 05/22/24 finasteride 5 mg tablet 5 mg PO DAILY BPH 03/05/20 05/22/24 aspirin 81 mg tablet,delayed 81 mg PO DAILY heart health 12/09/20 05/22/24 release furosemide 20 mg tablet 20 mg PO DAILY Edema 12/09/20 05/22/24 atorvastatin 80 mg tablet (Lipitor) 80 mg PO DAILY Cholesterol 02/25/22 05/22/24 potassium chloride 8 mEq 8 meq PO DAILY Supplement 09/14/22 05/22/24 capsule,extended release fluticasone propionate 50 2 spray intranasal DAILY allergies 01/05/23 05/22/24 mcg/actuation nasal spray,suspension (Flonase Allergy Relief) ketoconazole 2 % topical cream 1 applic topical BID Skin condition 01/05/23 05/22/24 Previous Rx's ?Medication ?Instructions ?Recorded ipratropium 0.5 mg-albuterol 3 mg 3 ml inhalation Q6H PRN shortness 12/04/21 (2.5 mg base)/3 mL nebulization of breath 90 days #180 mL soln albuterol sulfate 90 mcg/actuation 2 inh inhalation Q6H PRN shortness 07/20/22 aerosol inhaler of breath or wheezing 90 days #8.5 grams gabapentin 300 mg capsule 300 mg PO Q12H PRN pain #12 caps 06/21/23 naproxen 500 mg tablet 500 mg PO Q12H PRN pain #20 tabs 06/21/23 fluticasone fur. 200 mcg-umeclid 1 inh inhalation DAILY 90 days #90 12/29/23 62.5 mcg-vilant 25 mcg ea inhalat.powder (Trelegy Ellipta) amlodipine 2.5 mg tablet See Rx Instructions .Route 04/10/24 .COMPLEX #90 tabs ciprofloxacin HCl 500 mg tablet 500 mg PO BID 14 days #28 tabs 04/18/24 Allergies Allergy/AdvReac Type Severity Reaction Status Date / Time diphenhydramine Allergy na Verified 05/22/24 09:48 [From Benadryl] Worker's Comp Is this a Worker's Comp case?: No [facility] Disclaimer: The information contained in this section may have been updated after the patient was seen, as this information can be updated by other users. Medical History Pneumonia Atrial fibrillation Onychomycosis Allergic rhinitis Asthma-chronic obstructive pulmonary disease overlap syndrome Stopped smoking with greater than 30 pack year history Asthma-COPD overlap syndrome Sinus bradycardia COPD (chronic obstructive pulmonary disease) Surgical History History of laparoscopic cholecystectomy History of cardiac catheterization History of colonoscopy History of prostate surgery Family History Other No significant family history Social History Smoking Status: Former smoker tobacco type: cigarettes packs per day: 1 second hand exposure: No alcohol intake: never substance use type: denies use current occupational status: retired Travel in the last 8 weeks: None household members: none housing: house current occupational exposures/hazards: No caffeine: Yes ROS Obtained: Yes All systems reviewed & no additional complaints except as documented and Yes Systems reviewed as appropriate & no additional complaints except as documented Constitutional Constitutional: Reports system reviewed and no additional complaints, except as documented, Reports as per HPI, Reports body ache, Reports chills, Denies f ever(s) and Denies headache(s) ENT Ears, Nose, Mouth, and Throat: Reports system reviewed and no additional complaints, except as documented, Reports as per HPI, Denies otalgia, Denies headache(s), Reports nasal congestion, Denies nasal discharge, Denies sinus pain, Denies sinus pressure and Denies sore throat Cardiovascular Cardiovascular: Reports system reviewed and no additional complaints, except as documented, Reports as per HPI and Denies chest pain Respiratory Respiratory: Reports system reviewed and no additional complaints, except as documented, Reports as per HPI, Denies shortness of breath, Denies chest congestion and Denies cough Gastrointestinal Gastrointestingal: Reports system reviewed and no additional complaints, except as documented and as per HPI Neurologic Neurologic: Denies headache(s) Physical Exam General General appearance: alert and in no apparent distress ENT ENT exam: Present mucous membranes moist Expanded ENT Exam Nose exam: Absent sinus tenderness Throat exam: Present normal inspection Respiratory Respiratory exam: Present normal lung sounds bilaterally; Absent respiratory distress or wheezes Cardiovascular Cardiovascular exam: Present regular rate, normal rhythm and normal heart sounds Abdominal Exam Abdominal exam: Present soft and normal bowel sounds; Absent distention or tenderness Neurological Exam Neurological exam: Present alert, oriented X3 and normal gait Medical Decision Making Medical Records Screening: Per USPSTF and CDC recommendations, given the prevalence of disease in our region, it is our hospital?s policy to screen for HIV and viral Hepatitis for all patients aged 18 and over and those with ongoing risk factors. Deonte Inquiry Pt receiving controlled substance: No Deonte was queried for this patient: No Vital Signs: 06/08/24 13:30 Temperature 97.9 F Temperature Source Oral Pulse Rate [Radial] 76 Respiratory Rate 18 Blood Pressure [Right Arm] 122/62 Blood Pressure Mean [Right Arm] 82 Blood Pressure Source [Right Arm] Automatic Cuff Blood Pressure Position [Right Arm] Sitting 02 Sat by Pulse Oximetry 96 Oxygen Delivery Method Room Air Lab Data Lab results reviewed: Yes I reviewed the patient's lab results.
[2024-06-08 13:58] LABS: UTC Influenza A Antigen Negative (Negative)
[2024-06-08 13:59] LABS: UTC Influenza B Antigen Negative (Negative)
[2024-06-08 14:05] VITALS: BP 122/62; PULSE 76; RESP 18; TEMP 36.6; O2SAT 96
== END 2024-06-08 14:06 | disposition home or self-care (01) ==
PROVIDERS: Emergency Provider Nurse Practitioner; PCP Internal Medicine
DX: B34.9 Viral infection, unspecified (principal)
CPT/HCPCS: 87635; 87804; 99213; G0381

== ENCOUNTER 2024-06-20 11:43 | Outpatient (CLI) | payer MEDICARE, SELFPAY ==
--- NOTE | 2024-06-20 11:47 | XR_ITS ---
FINAL REPORT CLINICAL HISTORY: Right shoulder pain and stiffness -no trauma difficult to raise arm x 1 week COMPARISON: None FINDINGS: RIGHT SHOULDER Three views demonstrate no acute fracture or dislocation. There is mild narrowing of the acromioclavicular joint. The soft tissues are unremarkable. IMPRESSION: Degenerative changes without acute bony abnormality. Reviewed, Interpreted and Dictated by Bob Schneider MD Transcribed by Paula Layne Authenticated and [facility]
== END 2024-06-20 23:59 | disposition home or self-care (01) ==
LOC: RAD 11:45
PROVIDERS: PCP Internal Medicine; Visit Provider Internal Medicine
DX: M25.511 Pain in right shoulder (principal)
CPT/HCPCS: 73030

== ENCOUNTER 2024-07-25 08:38 | Outpatient (POV) | payer MEDICARE, SELFPAY ==
--- NOTE | 2024-07-25 09:19 | EXP.PAIN.SOA ---
[facility] Disclaimer: The information contained in this section may have been updated after the patient was seen, as this information can be updated by other users. Medical History Pneumonia Atrial fibrillation Onychomycosis Allergic rhinitis Asthma-chronic obstructive pulmonary disease overlap syndrome Stopped smoking with greater than 30 pack year history Asthma-COPD overlap syndrome Sinus bradycardia COPD (chronic obstructive pulmonary disease) Surgical History History of laparoscopic cholecystectomy History of cardiac catheterization History of colonoscopy History of prostate surgery Family History Other No significant family history Social History Smoking Status: Former smoker tobacco type: cigarettes packs per day: 1 second hand exposure: No alcohol intake: never substance use type: denies use current occupational status: retired Travel in the last 8 weeks: None household members: none housing: house current occupational exposures/hazards: No caffeine: Yes PM Subjective & Objective Subjective Subjective:: Patient is a pleasant 83-year-old male who presents today for worsening pain. Today he rates his pain an 8 out of 10. Patient states that his pain is all across to his low back and into his hips as well as his upper thighs. He denies any recent injury or fall. He does describe the pain as a throbbing, pulsating, burning sensation that is worse with certain positions. He does state that even the weather seems to aggravate it. He does state the pain is interfering with his ability perform activities of daily living such as cooking and cleaning. Patient did previously have bilateral hip injections back last August that did provide 100% relief and have lasted up until this pain started. Patient is prescribed gabapentin from his PCP. His Deonte is reviewed and is appropriate. Review of Systems: General: No recent weight changes, no fever, no sleep disturbances Respiratory: No cough, no shortness of air, no recurring pulmonary infections Cardiovascular/peripheral vascular: No chest pain, no palpitations, no edema, no shortness of breath Gastrointestinal: No new onset incontinence, normal bowel movements reported Genitourinary: No new onset incontinence Musculoskeletal: Low back pain, bilateral hip pain, buttocks pain, upper thigh pain Psychiatric: [Normal mood/affect] Neurological: [Denies weakness in extremities], [denies balance issues] Pain at rest (0-10 scale): 8 Objective Objective:: Physical Exam: General: Alert and oriented x3, no acute distress, pleasant and cooperative Lungs: Respirations even and unlabored, symmetrical chest expansion Eyes: PERRL Musculoskeletal: Flexion and extension of lumbar [spine] somewhat guarded secondary to pain, [antalgic gait noted] extreme point tenderness along bilateral SIs with positive bilateral Jim's, Minerva's, Gaenslen's, compression and distraction exam Neurological: Speech clear, no gross sensory deficit Has patient had previous pain injection?: No Conservative treatment options previously tried: Home exercise plan Length of treatment: Longer than 12 weeks Meds Home Medications and Allergies Home Medications ?Medication ?Instructions ?Recorded ?Confirmed ?Type tamsulosin 0.4 mg capsule 0.4 mg PO HS prostate 10/10/18 06/26/24 History aspirin 81 mg tablet,delayed 81 mg PO DAILY heart health 12/09/20 06/26/24 History release ipratropium 0.5 mg-albuterol 3 mg 3 ml inhalation Q6H PRN shortness 12/04/21 06/26/24 Rx (2.5 mg base)/3 mL nebulization of breath 90 days #180 mL soln fluticasone propionate 50 2 spray intranasal DAILY allergies 01/05/23 06/26/24 History mcg/actuation nasal spray,suspension (Flonase Allergy Relief) ketoconazole 2 % topical cream 1 applic topical BID Skin condition 01/05/23 06/26/24 History gabapentin 300 mg capsule 300 mg PO Q12H PRN pain #12 caps 06/21/23 06/26/24 Rx naproxen 500 mg tablet 500 mg PO Q12H PRN pain #20 tabs 06/21/23 06/26/24 Rx amlodipine 2.5 mg tablet See Rx Instructions .Route 04/10/24 06/26/24 Rx .COMPLEX #90 tabs atenolol 25 mg tablet See Rx Instructions .Route 06/22/24 06/26/24 Rx .COMPLEX #90 tabs atorvastatin 80 mg tablet See Rx Instructions .Route 06/22/24 06/26/24 Rx .COMPLEX #90 tabs finasteride 5 mg tablet See Rx Instructions .Route 06/22/24 06/26/24 Rx .COMPLEX #90 tabs furosemide 20 mg tablet See Rx Instructions .Route 06/22/24 06/26/24 Rx .COMPLEX #90 tabs omeprazole 40 mg capsule,delayed See Rx Instructions .Route 06/22/24 06/26/24 Rx release .COMPLEX #90 caps potassium chloride 8 mEq See Rx Instructions .Route 06/22/24 06/26/24 Rx tablet,extended release .COMPLEX #90 tabs albuterol sulfate 90 mcg/actuation 2 inh inhalation Q6H PRN shortness 06/26/24 06/26/24 Rx aerosol inhaler of breath or wheezing 90 days #8.5 grams fluticasone fur. 200 mcg-umeclid 1 inh inhalation DAILY 90 days #90 06/26/24 06/26/24 Rx 62.5 mcg-vilant 25 mcg ea inhalat.powder (Trelegy Ellipta) fluticasone propionate 50 2 spray intranasal DAILY 90 days 06/26/24 06/26/24 Rx mcg/actuation nasal #16 grams spray,suspension (Flonase Allergy Relief) New Prescriptions to Start Prescriptions: Allergies Allergy/AdvReac Type Severity Reaction Status Date / Time diphenhydramine (From Allergy na Verified 06/26/24 10:56 Benadryl) Assessment and Plan *Assessment and plan (1) Bilateral sacroiliitis: Status: Acute Category: Medical Code(s): M46.1 - Sacroiliitis, not elsewhere classified Plan Patient is experiencing significant pain throughout his low back and hips with limited range of motion of his lumbar spine. Patient did have extreme point tenderness along his bilateral SIs and a positive bilateral Jim's, Minerva's, Gaenslen's, compression and distraction exam. Patient was counseled that I do believe he would benefit from bilateral SI injections. Risk and benefits were discussed with the patient and he would like to proceed forward with this plan of care. Patient has tried and failed conservative therapy including oral medications, heat and ice, topicals, at home stretching exercise for longer than 12 weeks. This pain has been going on over 3 months. Patient will be scheduled for bilateral SI injections under fluoroscopy. Patient has been instructed to contact the clinic with any concerns before the next appointment. Dr. Henderson has reviewed this note and agrees with this plan of care. This note was dictated using voice recognition software and make contain errors or omissions. All injections are used with Lidocaine or Bupivacaine and Depo Medrol.
[2024-07-25 09:44] VITALS: BP 157/82; PULSE 61; RESP 14; O2SAT 95; BMI 27.3
== END 2024-07-25 23:59 | disposition home or self-care (01) ==
LOC: SC.PAIN 08:39
PROVIDERS: PCP Internal Medicine; Visit Provider Nurse Practitioner Family
DX: M46.1 Sacroiliitis, not elsewhere classified (principal); Z87.891 Personal history of nicotine dependence; Z73.89 Other problems related to life management difficulty; Z79.899 Other long term (current) drug therapy
CPT/HCPCS: 99212; G0463

== ENCOUNTER 2024-08-09 13:03 | Outpatient (CLI) | payer MEDICARE, SELFPAY ==
[2024-08-09 12:47] LABS: Basophils # 0.1 K/mm3 (0-0.2); Basophils % 0.5 % (0.1-2.0); Eosinophils # 0.3 K/mm3 (0.0-0.4); Eosinophils % 3.9 % (0.1-12.0); Hematocrit 41.8 % (42.0-52.0); Hemoglobin 13.8 g/dL (14.1-18.0); Lymphocytes # 1.3 K/mm3 (0.7-4.5); Lymphocytes % 14.7 % (10-50); Mean Corpuscular HGB Conc 33.1 g/dL (31.8-35.4); Mean Corpuscular Volume 90.6 fl (80-94); Mean Platelet Volume 7.1 fl (7.4-10.4); Monocytes # 0.6 K/mm3 (0.1-1.0); Monocytes % 6.9 % (1.7-9.3); Neutrophils # 6.4 K/mm3 (1.8-7.8); Neutrophils % 73.9 % (37.0-80.0); Platelet Count 274 K/mm3 (142-424); Red Blood Count 4.61 M/mm3 (4.60-6.20); Red Cell Distribution Width 14.2 % (11.5-17.5); White Blood Count 8.7 K/mm3 (4.8-10.8)
[2024-08-09 13:43] LABS: Alanine Aminotransferase 20 U/L (12-78); Albumin Level 3.7 g/dl (3.5-5.0); Albumin/Globulin Ratio 1.5 (1.1-1.8); Alkaline Phosphatase 98 U/L (38-126); Anion Gap 9.3 mEq/L (5-15); Aspartate Amino Transferase 33 U/L (17-59); Blood Urea Nitrogen 30 mg/dl (9-20); Calcium 9.1 mg/dl (8.4-10.2); Carbon Dioxide 28 mmol/L (22.0-30.0); Chloride 105 mmol/L (98-107); Chol/HDL Ratio 2.8 (1-3.5); Cholesterol 149 mg/dl (140-200); Estimated Glomerular Filt Rate 81 ml/min (>60); GFR (African American) 98 ML/MIN (>60); Globulin 2.5 g/dL (1.3-3.2); Glucose 80 mg/dl (74-100); HDL Cholesterol 54 mg/dl (40-60); Potassium 4.3 mmoL/L (3.5-5.1); Sodium 138 mmol/L (136-145); Total Protein,Serum 6.2 g/dl (6.3-8.2); Triglycerides 72 mg/dl (30-150); VLDL Cholesterol 14 mg/dL (0-40)
[2024-08-09 14:01] LABS: Direct LDL Cholesterol 80.17 mg/dL (100-129)
== END 2024-08-09 23:59 | disposition home or self-care (01) ==
LOC: LAB.DROPOF 13:03
PROVIDERS: PCP Internal Medicine; Visit Provider Internal Medicine
DX: E78.5 Hyperlipidemia, unspecified (principal); I10 Essential (primary) hypertension; I25.118 Atherosclerotic heart disease of native coronary artery with other forms of angina pectoris; Z87.891 Personal history of nicotine dependence
CPT/HCPCS: 80053; 80061; 85025

== ENCOUNTER 2024-08-17 14:54 | Outpatient (POV) | payer MEDICARE, SELFPAY ==
[2024-08-17 15:30] VITALS: BP 129/80; PULSE 68; RESP 14; O2SAT 96; BMI 27.6
--- NOTE | 2024-08-17 15:36 | EXP.PAIN.SOA ---
[facility] Disclaimer: The information contained in this section may have been updated after the patient was seen, as this information can be updated by other users. Medical History Pneumonia Atrial fibrillation Onychomycosis Allergic rhinitis Asthma-chronic obstructive pulmonary disease overlap syndrome Stopped smoking with greater than 30 pack year history Asthma-COPD overlap syndrome Sinus bradycardia COPD (chronic obstructive pulmonary disease) Surgical History History of laparoscopic cholecystectomy History of cardiac catheterization History of colonoscopy History of prostate surgery Family History Other No significant family history Social History Smoking Status: Former smoker tobacco type: cigarettes packs per day: 1 second hand exposure: No alcohol intake: never substance use type: denies use current occupational status: other Travel in the last 8 weeks: None household members: none housing: house current occupational exposures/hazards: No caffeine: Yes Have you lived/traveled outside [place] in past 30 days?: No Contact w/someone who lives/traveled outside [place] past 30 days?: No Exposure to someone with infectious disease in past 14 days?: No Do you have a fever (greater than 100.4 F or 38 C)?: No Have you tested positive for COVID-19: No Exposed to someone with COVID-19 in past 14 days?: No Do you have a sore throat?: No Do you have a cough?: No Do you have any weakness?: No Do you have any diarrhea?: No Are you experiencing any unusual bleeding?: No Do you have any muscle aches/pain?: No Do you have any abdominal pain?: No Are you experiencing loss of taste or smell?: No PM Subjective & Objective Subjective Subjective:: Patient is a pleasant 83-year-old male who presents today for worsening pain. Today he rates his pain a 9 out of 10. Patient does state he still having the bilateral hip pain that we saw him last for and he is scheduled for his SI injections this coming Tuesday. He does state since that appointment he did start having more numbness going down the right extremity. Patient did previously have a transforaminal epidural back in July 2023 that did provide 100% relief of this pain and has lasted up until the last 2 weeks. Patient does state that he would like to see about getting this injection repeated as it did provide such significant improvement. Patient states he has been able to increase his activity when that injection was working and he felt much more functional with significant improvement in his overall right leg symptoms. Patient does state currently that it is affecting his ability to perform activities of daily living such as cooking and cleaning. Patient has had longstanding back issues with radicular symptoms for years. Patient has tried and failed conservative therapy including continued at home stretching exercise for longer than 12 weeks. His Deonte has been reviewed and is appropriate. Review of Systems: General: No recent weight changes, no fever, no sleep disturbances Respiratory: No cough, no shortness of air, no recurring pulmonary infections Cardiovascular/peripheral vascular: No chest pain, no palpitations, no edema, no shortness of breath Gastrointestinal: No new onset incontinence, normal bowel movements reported Genitourinary: No new onset incontinence Musculoskeletal: Low back pain, right leg numbness tingling Psychiatric: [Normal mood/affect] Neurological: [Denies weakness in extremities], [denies balance issues] Pain at rest (0-10 scale): 9 Objective Objective:: Physical Exam: General: Alert and oriented x3, no acute distress, pleasant and cooperative Lungs: Respirations even and unlabored, symmetrical chest expansion Eyes: PERRL Musculoskeletal: Flexion and extension of lumbar [spine] somewhat guarded secondary to pain, [antalgic gait noted] positive right leg raise with decreased sensation to light touch and decreased reflexes Neurological: Speech clear, no gross sensory deficit Has patient had previous pain injection?: No Conservative treatment options previously tried: Home exercise plan Length of treatment: Longer than 12 weeks Meds Home Medications and Allergies Home Medications ?Medication ?Instructions ?Recorded ?Confirmed ?Type tamsulosin 0.4 mg capsule 0.4 mg PO HS prostate 10/10/18 08/17/24 History aspirin 81 mg tablet,delayed 81 mg PO DAILY heart health 12/09/20 08/17/24 History release ipratropium 0.5 mg-albuterol 3 mg 3 ml inhalation Q6H PRN shortness 12/04/21 08/17/24 Rx (2.5 mg base)/3 mL nebulization of breath 90 days #180 mL soln ketoconazole 2 % topical cream 1 applic topical BID Skin condition 01/05/23 08/17/24 History gabapentin 300 mg capsule 300 mg PO Q12H PRN pain #12 caps 06/21/23 08/17/24 Rx naproxen 500 mg tablet 500 mg PO Q12H PRN pain #20 tabs 06/21/23 08/17/24 Rx amlodipine 2.5 mg tablet See Rx Instructions .Route 04/10/24 08/17/24 Rx .COMPLEX #90 tabs atenolol 25 mg tablet See Rx Instructions .Route 06/22/24 08/17/24 Rx .COMPLEX #90 tabs atorvastatin 80 mg tablet See Rx Instructions .Route 06/22/24 08/17/24 Rx .COMPLEX #90 tabs finasteride 5 mg tablet See Rx Instructions .Route 06/22/24 08/17/24 Rx .COMPLEX #90 tabs furosemide 20 mg tablet See Rx Instructions .Route 06/22/24 08/17/24 Rx .COMPLEX #90 tabs omeprazole 40 mg capsule,delayed See Rx Instructions .Route 06/22/24 08/17/24 Rx release .COMPLEX #90 caps potassium chloride 8 mEq See Rx Instructions .Route 06/22/24 08/17/24 Rx tablet,extended release .COMPLEX #90 tabs albuterol sulfate 90 mcg/actuation 2 inh inhalation Q6H PRN shortness 06/26/24 08/17/24 Rx aerosol inhaler of breath or wheezing 90 days #8.5 grams fluticasone fur. 200 mcg-umeclid 1 inh inhalation DAILY 90 days #90 06/26/24 08/17/24 Rx 62.5 mcg-vilant 25 mcg ea inhalat.powder (Trelegy Ellipta) fluticasone propionate 50 2 spray intranasal DAILY 90 days 06/26/24 08/17/24 Rx mcg/actuation nasal #16 grams spray,suspension (Flonase Allergy Relief) New Prescriptions to Start Prescriptions: Allergies Allergy/AdvReac Type Severity Reaction Status Date / Time diphenhydramine (From Allergy na Verified 08/09/24 09:26 Benadryl) Assessment and Plan *Assessment and plan (1) Bilateral sacroiliitis: Status: Acute Category: Medical Code(s): M46.1 - Sacroiliitis, not elsewhere classified (2) Chronic pain syndrome: Status: Acute Category: Medical Code(s): G89.4 - Chronic pain syndrome (3) Low back pain: Status: Chronic Qualifiers: Chronicity: chronic Back pain laterality: bilateral Sciatica presence: unspecified whether sciatica present Qualified Code(s): M54.50 - Low back pain, unspecified; G89.29 - Other chronic pain Category: Medical Code(s): M54.50 - Low back pain, unspecified (4) Lumbar radiculopathy, chronic: Status: Acute Category: Medical Code(s): M54.16 - Radiculopathy, lumbar region (5) Degenerative disc disease, lumbar: Status: Acute Category: Medical Code(s): M51.369 - Other intervertebral disc degeneration, lumbar region without mention of lumbar back pain or lower extremity pain Plan Patient is experiencing significant worsening pain with numbness going down his entire right extremity. Patient did have limited range of motion of his lumbar spine with a positive right leg raise, decreased sensation to light touch and decreased reflexes. I did go over with the patient due to him being scheduled for the SI injections this coming Tuesday that we do not have enough time to get approval and switch out the injections. I did discuss with him that the SI injection still may provide very beneficial and help improve the pain currently. I did tell him I would order him prednisone 20 mg twice daily for 5 days to help improve it as well. I went over risk and benefits of repeat transforaminal epidural steroid injection. Patient would like to proceed forward with this plan of care. Patient has tried and failed conservative therapy including oral medications, heat and ice, topicals, prior physical therapy, at home stretching exercise for longer than 12 weeks. Patient is not on any blood thinners. Patient did previously have a right transforaminal epidural back on August 02, 2023 that did provide 100% relief and lasted approximately 13 months with improved function and decreased pain. Patient will be scheduled for a right transforaminal epidural steroid injection L4-L5 and L5-S1 under fluoroscopy. Patient has been instructed to contact the clinic with any concerns before the next appointment. Dr. Henderson has reviewed this note and agrees with this plan of care. This note was dictated using voice recognition software and make contain errors or omissions. All injections are used with Lidocaine, Bupivacaine and Depo Medrol. Occasionally urine drug screen is needed to verify patient's compliance with our office pain contract. This is ordered based off specific treatments related to chronic pain with the potential to abuse certain medications.
== END 2024-08-17 23:59 | disposition home or self-care (01) ==
PROVIDERS: PCP Internal Medicine; Visit Provider Nurse Practitioner Family
DX: M46.1 Sacroiliitis, not elsewhere classified (principal); G89.4 Chronic pain syndrome; M54.50 Low back pain, unspecified; M51.16 Intervertebral disc disorders with radiculopathy, lumbar region; Z87.891 Personal history of nicotine dependence; Z73.89 Other problems related to life management difficulty; Z79.899 Other long term (current) drug therapy
CPT/HCPCS: 99212; G0463

== ENCOUNTER 2024-08-21 11:13 | Day surgery (SDC) | payer MEDICARE, SELFPAY ==
[2024-08-21 11:42] VITALS: BP 144/79; BP 184/94; PULSE 58; PULSE 63; RESP 16; RESP 18; TEMP 36.3; O2SAT 93; O2SAT 94; BMI 27.6
[2024-08-21] MEDS: LIDOCAINE 1% 5ML PF VIAL 5 ML (11:47)
[2024-08-21] MEDS: methylPREDNISolone ACETATE 80MG/ML VIAL 80 MG (11:47)
[2024-08-21] MEDS: BUPIVACAINE 0.25% 10ML INJ 25 MG IJ (11:47)
[2024-08-21 11:56] VITALS: BP 180/92; PULSE 59; RESP 16; TEMP 36.8; O2SAT 95
--- NOTE | 2024-08-21 12:38 | P.PCN_ITS ---
Procedure Date: 08/21/24 Time: 11:50 Anesthesiologist:: Navin Hayes CRNA Complications:: None Pre-procedure Diagnosis:: Bilateral sacroiliitis Post-procedure Diagnosis:: Same. Indications for Procedure:: Patient is a very pleasant 83-year-old male who comes our clinic today for bilateral sacroiliac joint injection of cortisone and local anesthetic. Patient describes low lumbar back pain off the midline bilaterally. Bilateral posterior hip pain. Difficulty transitioning from sitting to standing. Difficulty with extension of the lumbar spine. He rates his pain 7/10. Procedure Details:: Procedure: Bilateral sacroiliac joint injections under fluoroscopy Informed consent was obtained and the risks and benefits of the procedure were explained to the patient.~ The patient was taken to the procedure room and noninvasive monitors were placed including a noninvasive blood pressure cuff and pulse oximeter.~ The patient was placed prone on the procedure table. Both hips were cleansed using Betadine as a cleansing solution. C-arm fluoroscopy was used to view the right sacroiliac joint.~ The skin and subcutaneous tissues were anesthetized using lidocaine 1.5% and a 25-gauge needle.~ After this, a 22-gauge spinal needle was inserted under fluoroscopic guidance into the inferior aspect of the right sacroiliac joint.~ Omnipaque dye was injected and good spread was seen throughout the joint.~ After this, approximately 5 mL of bupivacaine, 0.25% and Depo-Medrol, 40 mg was incrementally injected into the right sacroiliac joint. We then moved to the left sacroiliac joint.~ The skin and subcutaneous tissues were anesthetized using lidocaine 1.5% and a 25-gauge needle.~ After this, a 22- gauge spinal needle was inserted under fluoroscopic guidance into the inferior aspect of the left sacroiliac joint.~ Omnipaque dye was injected and good spread was seen throughout the joint. After this, approximately 5 mL of bupivacaine, 0.25% and Depo-Medrol, 40 mg was incrementally injected into the left sacroiliac joint.~ The patient tolerated the procedure well with no complications. The patient was observed in the Pain Clinic and then was discharged home neurologically intact. Plan and Disposition:: Patient was discharged without incident.
== END 2024-08-21 11:56 | disposition home or self-care (01) ==
LOC: SC.PAINP 11:14
PROVIDERS: PCP Internal Medicine; Visit Provider Nurse Anesthetist, Certified Registered
DX: M46.1 Sacroiliitis, not elsewhere classified (principal)
CPT/HCPCS: 27096; G0260; J1010

== ENCOUNTER 2024-09-25 08:22 | Day surgery (SDC) | payer MEDICARE, SELFPAY ==
[2024-09-25 09:00] VITALS: BP 151/68; PULSE 47; RESP 18; TEMP 36.4; O2SAT 93; BMI 27.6
[2024-09-25 09:06] VITALS: BP 157/91; PULSE 81; RESP 18; O2SAT 96
[2024-09-25] MEDS: LIDOCAINE 1% 5ML PF VIAL 5 ML (09:07)
--- NOTE | 2024-09-25 09:10 | EXP.PAIN.PRO ---
Procedure Date: 09/25/24 Time: 08:50 Anesthesiologist:: Navin Hayes CRNA Complications:: None Pre-procedure Diagnosis:: Degenerative disc lumbar spine multilevels for lumbar radiculopathy. Lumbar disc bulge L4-5, L5-S1. Lumbar spinal stenosis. Lumbar facet arthropathy. Lumbar spondylosis. Post-procedure Diagnosis:: Same. Indications for Procedure:: Patient is a very pleasant 83-year-old male who comes our clinic today for right L4-5, L5-S1 transforaminal epidural steroid injection. Patient describes low lumbar back pain off the midline to the right. Right hip and leg radicular symptoms to the foot. Patient responded very well to this injection in the past. He reports 1 year of relief. He rates his pain today 9.5. Procedure Details:: Details of the procedure explained to the patient. The patient was taken to procedure room placed in the prone position. The area over the lumbar spine was cleansed using chlorhexidine as a cleansing solution. Using fluoroscopy guidance markers were placed over the right border of the L4-5 and L5-S1 vertebral body. At each marker the skin and subcutaneous tissue was anesthetized using 1% lidocaine and a 25-gauge needle. At this time using fluoroscopy guidance 3 and half inch 22-gauge spinal needle was used to access the upper one third of the L4 for 5 and L5-S1 foramen. Using fluoroscopy guidance in the lateral position needle position was confirmed using 0.5 mL of contrast dye. Good spread was noted in the epidural space at each level. After negative aspiration 2 mL of 1% lidocaine and 40 mg of Depo-Medrol was injected at each level. Patient tolerated procedure without difficulty. There are no complications. Plan and Disposition:: Patient was discharged without incident.
[2024-09-25 09:13] VITALS: BP 116/64; PULSE 66; RESP 18; O2SAT 97
[2024-09-25] MEDS: IOPAMIDOL-200 (41%);10ML VIAL 2 ML IV (09:13)
== END 2024-09-25 09:13 | disposition home or self-care (01) ==
PROVIDERS: PCP Internal Medicine; Visit Provider Nurse Practitioner Family
DX: M51.16 Intervertebral disc disorders with radiculopathy, lumbar region (principal); M47.26 Other spondylosis with radiculopathy, lumbar region; M48.061 Spinal stenosis, lumbar region without neurogenic claudication
CPT/HCPCS: 64483; 64484; J1010; Q9966

== ENCOUNTER 2024-10-17 13:55 | Outpatient (RCR) | payer MEDICARE, SELFPAY | END 2024-10-17 23:59 | disposition home or self-care (01) | LOC: PT 13:55 | PROVIDERS: PCP Internal Medicine; Visit Provider Internal Medicine | DX: M16.0 Bilateral primary osteoarthritis of hip (principal); M48.061 Spinal stenosis, lumbar region without neurogenic claudication; R26.2 Difficulty in walking, not elsewhere classified; Z91.81 History of falling | CPT/HCPCS: 97542 ==

== ENCOUNTER 2025-02-12 11:00 | Outpatient (CLI) | payer MEDICARE, SELFPAY ==
[2025-02-12 15:41] LABS: Alanine Aminotransferase 19 U/L (12-78); Albumin Level 3.9 g/dl (3.5-5.0); Albumin/Globulin Ratio 1.6 (1.1-1.8); Alkaline Phosphatase 96 U/L (38-126); Anion Gap 8.3 mEq/L (5-15); Aspartate Amino Transferase 32 U/L (17-59); Bilirubin,Total 0.9 mg/dl (0.2-1.3); Blood Urea Nitrogen 18 mg/dl (9-20); Calcium 8.7 mg/dl (8.4-10.2); Carbon Dioxide 29 mmol/L (22.0-30.0); Chloride 102 mmol/L (98-107); Cholesterol 139 mg/dl (140-200); Estimated Glomerular Filt Rate 80 ml/min (>60); GFR (African American) 97 ML/MIN (>60); Globulin 2.5 g/dL (1.3-3.2); Glucose 87 mg/dl (74-100); HDL Cholesterol 46 mg/dl (40-60); Potassium 4.3 mmoL/L (3.5-5.1); Sodium 135 mmol/L (136-145); Total Protein,Serum 6.4 g/dl (6.3-8.2); Triglycerides 70 mg/dl (30-150); VLDL Cholesterol 14 mg/dL (0-40)
[2025-02-12 15:52] LABS: Direct LDL Cholesterol 64.51 mg/dL (100-129)
[2025-02-12 16:12] LABS: Prostate Specific Ag, Diagnost 4.56 ng/ml (0.0-4.0)
== END 2025-02-12 23:59 | disposition home or self-care (01) ==
LOC: LAB.DROPOF 02-13 11:27
PROVIDERS: PCP Internal Medicine; Visit Provider Internal Medicine
DX: E78.2 Mixed hyperlipidemia (principal); I10 Essential (primary) hypertension; I25.10 Atherosclerotic heart disease of native coronary artery without angina pectoris; R97.20 Elevated prostate specific antigen [PSA]
CPT/HCPCS: 80053; 80061; 84153

== ENCOUNTER 2025-03-14 11:36 | Outpatient (CLI) | payer MEDICARE, SELFPAY ==
--- NOTE | 2025-03-14 11:37 | XR_ITS ---
FINAL REPORT CLINICAL HISTORY: left hip pain COMPARISON: 04/12/2023 FINDINGS: LEFT HIP: Two views of the left hip demonstrate no acute fracture or dislocation. There is advanced joint space narrowing. Degenerative cyst formation is noted at the femoral head. There is subchondral sclerosis. No soft tissue abnormality is seen. IMPRESSION: Degenerative/chronic changes without acute bony abnormality. Reviewed, Interpreted and Dictated by Bob Schneider MD Transcribed by Shavonne Méndez Authenticated and . [facility]
--- NOTE | 2025-03-14 11:37 | XR_ITS ---
FINAL REPORT CLINICAL HISTORY: right hip pain COMPARISON: None FINDINGS: RIGHT HIP Two views of the right hip demonstrate no acute fracture or dislocation. There are advanced hypertrophic changes of osteoarthritis. Degenerative cyst formation is noted in the femoral head. Osteophytes are seen at the acetabular margin. No soft tissue abnormality is seen. IMPRESSION: Degenerative/chronic changes without acute bony abnormality. Reviewed, Interpreted and Dictated by Bob Schneider MD Transcribed by Shavonne Méndez Authenticated and [facility]
== END 2025-03-14 23:59 | disposition home or self-care (01) ==
LOC: RAD 11:37
PROVIDERS: Visit Provider Physician Assistant
DX: M16.0 Bilateral primary osteoarthritis of hip (principal)
CPT/HCPCS: 73502

== ENCOUNTER 2025-04-25 07:45 | Outpatient (CLI) | payer MEDICARE, SELFPAY | END 2025-04-25 23:59 | disposition home or self-care (01) | LOC: RT 07:46 | PROVIDERS: PCP Internal Medicine; Visit Provider Internal Medicine Pulmonary Disease | DX: J44.9 Chronic obstructive pulmonary disease, unspecified (principal) | CPT/HCPCS: 94010; 94618 ==

== ENCOUNTER 2025-05-28 05:22 | Emergency (ER) | payer MEDICARE, SELFPAY ==
[2025-05-28] VITALS (14 sets, daily range): BP systolic 100–196; BP diastolic 65–86; PULSE 83–99; RESP 16–18; TEMP 37.2–37.6; O2SAT 93–100; BMI 25.0
--- NOTE | 2025-05-28 05:25 | CT_ITS ---
FINAL REPORT TECHNIQUE: Thin section axial images are obtained through the abdomen and pelvis after intravenous contrast. Reconstruction images were obtained from the axial data. Exam was performed using dose reduction techniques. CLINICAL HISTORY: sepsis, recent L hip surgery COMPARISON: 03/14/2024 FINDINGS: LIVER: Homogeneous. No focal lesion. GALLBLADDER/BILIARY SYSTEM: Gallbladder is absent. No biliary dilatation. SPLEEN: Unremarkable. PANCREAS: Unremarkable. ADRENALS: Unremarkable. KIDNEYS/URETERS/BLADDER: There is a small, hypodense lesion in the inferior pole of the left kidney which is too small to characterize but unchanged from prior exam. There is no hydronephrosis. Unremarkable urinary bladder. GI TRACT: There is a large hiatal hernia present. No small bowel obstruction or dilatation. Appendix not visualized. There are no secondary signs of appendicitis. There is a large amount of retained stool in the colon. No acute colon abnormality. PELVIC ORGANS: Prostate is enlarged. LYMPH NODES/RETROPERITONEUM/MESENTERY: No lymphadenopathy. No abdominal aortic aneurysm. ABDOMINAL WALL: The abdominal wall is intact. FREE FLUID: No ascites. BONES: No acute osseous abnormality. IMPRESSION: No acute process of the abdomen or pelvis. Constipation. Reviewed, Interpreted and Dictated by Georgia Cornelius MD Transcribed by Sabine Soni Authenticated and . [facility]
--- NOTE | 2025-05-28 05:27 | CT_ITS ---
FINAL REPORT TECHNIQUE: Thin section axial images were obtained from the thoracic inlet through the upper abdomen after intravenous contrast injection. Reconstruction images were obtained from the axial data. Exam was performed using dose reduction technique. CLINICAL HISTORY: sepsis, productive cough COMPARISON: 05/04/2016 FINDINGS: There is a mildly enlarged AP window lymph node which is increased in size measuring 17 mm, previously measured 12 mm. A pretracheal lymph node has also increased in size. There is no hilar lymphadenopathy. Heart is normal in size. There is no pleural or pericardial effusion. There is new, patchy ground glass opacity in the left upper lobe. There is more confluent ground glass and airspace opacity in the left greater than right lower lobes most consistent with pneumonia. There is a large hiatal hernia. No acute osseous abnormality. 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 IMPRESSION: New bilateral pneumonia, left greater than right. Consider 3-month follow-up. Lymphadenopathy, likely reactive. Large hiatal hernia. Reviewed, Interpreted and Dictated by Georgia Cornelius MD Transcribed by Sabine Soni Authenticated and . [facility]
--- NOTE | 2025-05-28 05:36 | ED_ITS ---
Discharge Plan Disposition Patient Disposition: Home, Self-Care Condition: Good Prescriptions Prescriptions: New levofloxacin 750 mg tablet 750 mg PO DAILY Qty: 7 0RF No Action ipratropium-albuterol 0.5 mg-3 mg(2.5 mg base)/3 mL solution for nebulization 3 ml INHALATION Q6H PRN (Reason: shortness of breath) 90 Days Qty: 180 3RF Trelegy Ellipta 200-62.5-25 mcg blister with device 1 inh inhalation DAILY 90 Days Qty: 90 3RF fluticasone propionate [Flonase Allergy Relief] 50 mcg/actuation spray,suspension 2 spray intranasal DAILY 90 Days Qty: 16 3RF Rx Instructions: administer into each nostril albuterol sulfate 90 mcg/actuation HFA aerosol inhaler 2 inh INHALATION Q6H PRN (Reason: shortness of breath or wheezing) 90 Days Qty: 8.5 3RF tamsulosin 0.4 mg capsule 0.4 mg PO HS Qty: 90 1RF potassium chloride 8 mEq tablet extended release See Rx Instructions .ROUTE .COMPLEX Qty: 90 1RF Dose Instruction: TAKE 1 TABLET BY MOUTH ONCE DAILY Rx Instructions: TAKE 1 TABLET BY MOUTH ONCE DAILY omeprazole 40 mg capsule,delayed release(DR/EC) See Rx Instructions .ROUTE .COMPLEX Qty: 90 1RF Dose Instruction: TAKE 1 CAPSULE BY MOUTH ONCE DAILY Rx Instructions: TAKE 1 CAPSULE BY MOUTH ONCE DAILY furosemide 20 mg tablet See Rx Instructions .ROUTE .COMPLEX Qty: 90 1RF Dose Instruction: TAKE 1 TABLET BY MOUTH ONCE DAILY Rx Instructions: TAKE 1 TABLET BY MOUTH ONCE DAILY tadalafil 5 mg tablet See Rx Instructions .ROUTE .COMPLEX Qty: 30 1RF Dose Instruction: TAKE 1 TABLET BY MOUTH ONCE DAILY Rx Instructions: TAKE 1 TABLET BY MOUTH ONCE DAILY atorvastatin 80 mg tablet See Rx Instructions .ROUTE .COMPLEX Qty: 90 1RF Dose Instruction: TAKE 1 TABLET BY MOUTH AT BEDTIME Rx Instructions: TAKE 1 TABLET BY MOUTH AT BEDTIME Trelegy Ellipta 200-62.5-25 mcg blister with device 0RF atenolol 25 mg tablet See Rx Instructions .ROUTE .COMPLEX Qty: 90 1RF Dose Instruction: TAKE 1 TABLET BY MOUTH ONCE DAILY Rx Instructions: TAKE 1 TABLET BY MOUTH ONCE DAILY amlodipine 2.5 mg tablet See Rx Instructions .ROUTE .COMPLEX Qty: 90 1RF Dose Instruction: TAKE 1 TABLET BY MOUTH ONCE DAILY Rx Instructions: TAKE 1 TABLET BY MOUTH ONCE DAILY finasteride 5 mg tablet See Rx Instructions .ROUTE .COMPLEX Qty: 90 1RF Dose Instruction: TAKE 1 TABLET BY MOUTH ONCE DAILY Rx Instructions: TAKE 1 TABLET BY MOUTH ONCE DAILY gabapentin 300 mg capsule 300 mg PO BID Qty: 180 0RF aspirin 81 MG tablet,delayed release (DR/EC) 81 mg PO DAILY ketoconazole 2 % cream 1 applic topical BID Referrals Follow up/Referrals: Liban Aguilera MD [Primary Care Provider, Medical] - 3 days Provider,MD Summer [Referring, Medical] - See instructions Activity Restrictions/Add. Instructions Additional Instructions/Restrictions: You were seen in the emergency department for pneumonia. Please take Tylenol for fever and discomfort. Please complete the prescription of the antibiotic below. Please follow closely with your primary care provider outpatient. If symptoms worsen, or new symptoms develop, please return to the emergency department. Clinical Impressions Clinical Impression: Pneumonia Instructions Patient Instructions: DI for Pneumonia -- Adult Print Language Print Language: Sami Discharge ED Provider: Zoë Danielson General Adult HPI <Zoë Danielson MD - Last Filed: 05/28/25 06:50> General Chief complaint: Fever Stated complaint: Hip Pain Time Seen by Provider: 05/28/25 05:25 Mode of Arrival: EMS Source of Information: Patient and EMS Description of Symptoms (Recalled from ER Triage Doc. by RN): patient had hip replacement on 05/13/25 at [place]; feeling generally unwell; running a fever at home and took tylenol; having some pain in the hip; History of Present Illness HPI narrative: 84-year-old male with history of degenerative joints, prostatitis, lumbar spondylosis, sliding hiatal hernia, CAD, GERD, hyperlipidemia, hypertension, COPD, and hip replacement 05/13/2025 at [place] presents to the ER complaining of generally feeling unwell, fever at home. Patient reports he woke up having chills and shaky. He took Tylenol believing he was developing fever. EMS reports when they arrived he had a temperature of 101.2. They did not administer any medications and route but did place the patient on nasal cannula. Patient reports he was having reflux symptoms overnight and felt better once he coughed up some frothy stuff . He denies any chest pain or difficulty breathing but was only saturating in the low 90s and borderline tachypneic on presentation to the ER and does not typically require nasal cannula support. He denies any dysuria or hematuria, no abdominal pain, he states he is not having any nausea or vomiting at this time, he denies any chest pain. He denies congestion, headache, dizziness, he states his left hip still aches but it is feeling progressively better every day since the time of surgery. No numbness, tingling, or weakness. No other complaints or concerns. Related Data Home Medications ?Medication ?Instructions ?Recorded ?Confirmed aspirin 81 mg tablet,delayed 81 mg PO DAILY heart heal th 12/09/20 05/08/25 release ketoconazole 2 % topical cream 1 applic topical BID Sk in condition 01/05/23 05/08/25 Previous Rx's ?Medication ?Instructions ?Recorded ipratropium 0.5 mg-albuterol 3 mg 3 ml inhalation Q6H PRN shortness 12/04/21 (2.5 mg base)/3 mL nebulization of breath 90 days #180 mL soln furosemide 20 mg tablet See Rx Instructions .Route 0 09/14/24 .COMPLEX #90 tabs omeprazole 40 mg capsule,delayed See Rx Instructions . Route 09/14/24 release .COMPLEX #90 caps potassium chloride 8 mEq See Rx Instructions .Route 0 09/14/24 tablet,extended release .COMPLEX #90 tabs tamsulosin 0.4 mg capsule 0.4 mg PO HS prostate #90 ca ps 09/14/24 atorvastatin 80 mg tablet See Rx Instructions .Route 0 02/27/25 .COMPLEX #90 tabs tadalafil 5 mg tablet See Rx Instructions .Route 0 02/27/25 .COMPLEX #30 tabs amlodipine 2.5 mg tablet See Rx Instructions .Route 0 04/02/25 .COMPLEX #90 tabs atenolol 25 mg tablet See Rx Instructions .Route 0 04/02/25 .COMPLEX #90 tabs albuterol sulfate 90 mcg/actuation 2 inh inhalation Q6 H PRN shortness 04/25/25 aerosol inhaler of breath or wheezing 90 day s #8.5 grams finasteride 5 mg tablet See Rx Instructions .Route 0 04/25/25 .COMPLEX #90 tabs fluticasone fur. 200 mcg-umeclid 1 inh inhalation STEPHANIE Y 90 days #90 04/25/25 62.5 mcg-vilant 25 mcg ea inhalat.powder (Trelegy Ellipta) fluticasone propionate 50 2 spray intranasal DAILY 90 days 04/25/25 mcg/actuation nasal #16 grams spray,suspension (Flonase Allergy Relief) gabapentin 300 mg capsule 300 mg PO BID pain #180 caps 05/13/25 levofloxacin 750 mg tablet 750 mg PO DAILY #7 tabs Allergies Allergy/AdvReac Type Severity Reaction Status Date / Time diphenhydramine (From Allergy na Verified 05/08/25 14:06 Benadryl) [facility] <Zoë Danielson MD - Last Filed: 05/28/25 06:50> [facility] Disclaimer: The information contained in this section may have been updated after the patient was seen, as this information can be updated by other users. Medical History Pneumonia Atrial fibrillation Onychomycosis Allergic rhinitis Asthma-chronic obstructive pulmonary disease overlap syndrome Stopped smoking with greater than 30 pack year history Asthma-COPD overlap syndrome Sinus bradycardia COPD (chronic obstructive pulmonary disease) Surgical History History of laparoscopic cholecystectomy History of cardiac catheterization History of colonoscopy History of prostate surgery Family History Other No significant family history Social History Smoking Status: Former smoker tobacco type: cigarettes packs per day: 1 second hand exposure: No alcohol intake: never substance use type: denies use current occupational status: other Travel in the last 8 weeks?: None household members: none housing: house current occupational exposures/hazards: No caffeine: Yes Other Medical History Have you received the Flu Vaccine for this season: No Have you received the Pneumonia Vaccine: Yes <Zoë Danielson MD - Last Filed: 05/28/25 06:50> ROS Obtained: Yes Systems reviewed as appropriate & no additional complaints except as documented Per HPI Physical Exam <Zoë Danielson MD - Last Filed: 05/28/25 06:50> General General appearance: alert and in no apparent distress Head Head exam: atraumatic and normocephalic Eye Eye exam: Present PERRL and EOMI ENT ENT exam: Present mucous membranes moist Neck Neck exam: Present normal inspection and full ROM Chest Chest inspection: Present symmetric chest wall rise Respiratory Respiratory exam: Present other (Mild crackles at left lung base, mild tachypnea, respiratory rate 20-22 during exam, saturating 90 to 92% on room air, placed on nasal cannula and now saturating 96%); Absent respiratory distress, wheezes or stridor Cardiovascular Cardiovascular exam: Present regular rate and normal rhythm Abdominal Exam Abdominal exam: Present soft; Absent distention, tenderness, guarding or rebound Extremities Exam Extremities exam: Present edema (Trace +1 pitting edema bilateral lower extremity) and other (Left hip incision with no dehiscence, no erythema or induration, no fluctuance, no evidence of infection, there is no heat, erythema, or swelling over the left hip); Absent full ROM (Range of motion of left hip slightly limited secondary to recent surgery but nearly equal to the right side, only mild pain with active or passive range of motion) or joint swelling Neurological Exam Neurological exam: Present alert and oriented X3; Absent motor sensory deficit Psychiatric Psychiatric exam: Present normal affect and normal mood Skin Skin exam: Present warm and dry Medical Decision Making <Zoë Danielson MD - Last Filed: 05/28/25 06:50> Medical Records Medical records reviewed: Yes I reviewed the patient's medical records. Screening: Per USPSTF and CDC recommendations, given the prevalence of disease in our region, it is our hospital?s policy to screen for HIV and viral Hepatitis for all patients aged 18 and over and those with ongoing risk factors. [place] Inquiry Pt receiving controlled substance: No Vital Signs: 05/28/25 05:25 05/28/25 05:30 05/28/25 05:32 Temperature 99.7 F H Temperature Source Oral Oral Pulse Rate 94 H Pulse Rate [Right Radial] 99 H Respiratory Rate 16 Blood Pressure 128/69 Blood Pressure [Right Arm] 120/79 Blood Pressure Mean [Right Arm] 92 Blood Pressure Source [Right Arm] Automatic Cuff Blood Pressure Position [Right Arm] Supine 02 Sat by Pulse Oximetry 93 L 96 Oxygen Delivery Method Room Air Oxygen Flow Rate (LPM) 05/28/25 05:54 05/28/25 06:18 05/28/25 06:46 Temperature Temperature Source Pulse Rate 92 H 96 H 97 H Pulse Rate [Right Radial] Respiratory Rate Blood Pressure 100/72 L 149/74 H Blood Pressure [Right Arm] Blood Pressure Mean [Right Arm] Blood Pressure Source [Right Arm] Blood Pressure Position [Right Arm] 02 Sat by Pulse Oximetry 94 L 96 95 Oxygen Delivery Method Oxygen Flow Rate (LPM) 05/28/25 07:02 05/28/25 07:07 05/28/25 07:07 Temperature Temperature Source Pulse Rate 90 89 Pulse Rate [Right Radial] Respiratory Rate Blood Pressure 171/79 H Blood Pressure [Right Arm] Blood Pressure Mean [Right Arm] Blood Pressure Source [Right Arm] Blood Pressure Position [Right Arm] 02 Sat by Pulse Oximetry 100 Oxygen Delivery Method Nasal Cannula Oxygen Flow Rate (LPM) 2 05/28/25 07:15 05/28/25 07:31 05/28/25 07:45 Temperature Temperature Source Pulse Rate 90 88 83 Pulse Rate [Right Radial] Respiratory Rate Blood Pressure 196/84 H 162/65 H 162/86 H Blood Pressure [Right Arm] Blood Pressure Mean [Right Arm] Blood Pressure Source [Right Arm] Blood Pressure Position [Right Arm] 02 Sat by Pulse Oximetry 96 97 97 Oxygen Delivery Method Room Air Room Air Oxygen Flow Rate (LPM) 05/28/25 07:56 05/28/25 08:17 05/28/25 08:30 Temperature Temperature Source Pulse Rate 83 92 H 90 Pulse Rate [Right Radial] Respiratory Rate Blood Pressure 177/78 H 180/76 H 162/74 H Blood Pressure [Right Arm] Blood Pressure Mean [Right Arm] Blood Pressure Source [Right Arm] Blood Pressure Position [Right Arm] 02 Sat by Pulse Oximetry 98 97 96 Oxygen Delivery Method Oxygen Flow Rate (LPM) Lab Data Lab Results 05/28/25 05:00: WBC 10.7, RBC 4.23 L, Hgb 12.3 L, Hct 40.1 L, MCV 94.8 H, MCH 29.1, MCHC 30.7 L, RDW 13.6, Plt Count 448 H, MPV 8.6, Neut % (Auto) 79.6, Lymph % (Auto) 15.6, [place] % (Auto) 2.2, Eos % (Auto) 1.7, Baso % (Auto) 0.4, Neut # (Auto) 8.5 H, Lymph # (Auto) 1.7, [place] # (Auto) 0.2, Eos # (Auto) 0.2, Baso # (Auto) 0.0, PT 10.6, INR 0.95, Sodium 143, Potassium 5.2 H, Chloride 105, Carbon Dioxide 27, Anion Gap 16.2 H, BUN 21 H, Creatinine 0.70, Estimated Creat Clear 58, Estimated GFR 107, Est GFR ( Amer) 130, Glucose 138 H, Lactate 2.5 H, Calcium 9.1, Total Bilirubin 1.1, AST 45, ALT 30, Alkaline Phosphatase 100, Troponin I < 0.01, Total Protein 6.9, Albumin 4.1, Globulin 2.8, Albumin/Globulin Ratio 1.5 05/28/25 05:10: VBG pH 7.28 L, VBG pCO2 54.8 H, VBG pO2 68.5 H, VBG HCO3 25.2, VBG Total CO2 26.9, VBG O2 Saturation 91.1 H, VBG Base Excess -1.5, VBG Lactic Acid 5.1 H 05/28/25 05:35: Chlamy pneumoniae PCR Not detected, Adenovirus (PCR) Not detected, B. pertussis DNA (PCR) Not detected, Coronavirus OC43 (PCR) Not detected, Coronavirus HKU1 (PCR) Not detected, Coronavirus 229E (PCR) Not detected, SARS-CoV-2 (PCR) Not detected, Coronavirus NL63 (PCR) Not detected, Human Metapneumovir PCR Not detected, Influenza A (H1) PCR Not detected, Influ A (H1N1/09) PCR Not detected, Influenza A (H3) PCR Not detected, Influenza Type A (PCR) Not detected, Influenza Type B (PCR) Not detected, M. pneumoniae (PCR) Not detected, Parainfluenza 1 (PCR) Not detected, Parainfluenza 2 (PCR) Not detected, Parainfluenza 3 (PCR) Not detected, Parainfluenza 4 (PCR) Not detected, RSV (PCR) Not detected, Entero/Rhino (PCR) Not detected 05/28/25 06:51: Urine Color Yellow, Urine Appearance Clear, Urine pH 5.5, Ur Specific Bern 1.025, Urine Protein Trace, Urine Glucose (UA) Negative, Urine Ketones Negative, Urine Blood Negative, Urine Nitrate Negative, Urine Bilirubin Negative, Urine Urobilinogen 4.0, Ur Leukocyte Esterase Negative, Urine RBC None, Urine WBC 3-5, Ur Squamous Epith Cells Occasional, Urine Bacteria None 05/28/25 07:16: Potassium 3.4 L D 05/28/25 05:00 05/28/25 07:16 Orders (Tests/Meds): ED MEDICATIONS Discontinued Medications Generic Name Dose Route Start Last Admin Trade Name Chris PRN Reason Stop Dose Admin Albuterol/Ipratropium 9 ml 05/28/25 06:49 05/28/25 07:06 Ipratropium/Albuterol 3 Ml Neb IH 05/28/25 06:50 9 ml ONCE ONE Administration Piperacillin Sod/Tazobactam 100 mls @ 200 mls/hr 05/28/25 05:25 05/28/25 06:21 Sod 4.5 gm/ Sodium Chloride IV 05/28/25 05:54 Infused ONCE ONE Infusion Lactated Ringer's 1,000 mls @ 999 mls/hr 05/28/25 05:27 05/28/25 06:53 Lactated Ringer's 1000 Ml Bag IV 05/28/25 06:27 Infused .Q1H1M ONE Infusion Vancomycin/PEG/NADA/Lysine/Water 1.5 gm in 300 mls @ 150 mls/hr 05/28/25 06:00 05/28/25 08:21 Vancomycin 1.5gm/300ml (Peg) Premix IV 05/28/25 07:59 Infused ONCE ONE Infusion Iopamidol 80 ml 05/28/25 06:08 05/28/25 06:11 Iopamidol-370 (76%);100ml Bottle IV 05/28/25 06:09 80 ml ONCE ONE Administration Miscellaneous 1 each 05/28/25 05:30 05/28/25 05:52 Vancomycin Consult Request NOTAPPLIC 06/27/25 05:29 Not Given CONSULT PHARMACY [facility] Sodium Chloride 10 ml 05/28/25 06:08 05/28/25 06:11 Sodium Chloride 0.9% 10ml Syr (Rad Only) IV 05/28/25 06:09 10 ml ONCE ONE Administration ORDERS Category Date Time Status CT abdomen pelvis w con Stat Cat Scan 05/28/25 05:[address] chest w con Stat Cat Scan 05/28/25 05:27 Completed Complete Blood Count Auto Diff Stat Lab 05/28/25 05:00 Completed Comprehensive Metabolic Panel Stat Lab 05/28/25 05:00 Completed Full Resp Panel w/COVID ([facility]) Routine Lab 05/28/25 05:35 Completed Lactic Acid Stat Lab 05/28/25 05:00 Completed Potassium Stat Lab 05/28/25 07:16 Completed Prothrombin Time INR Stat Lab 05/28/25 05:00 Completed Trop I [Troponin I] Stat Lab 05/28/25 05:00 Completed Troponin I Q3H Lab 05/28/25 11:30 Ordered Urinalysis and Microscopic Stat Lab 05/28/25 06:51 Completed Blood Culture Stat Micro 05/28/25 05:26 Received VBG [Venous Blood Gas] Stat RT 05/28/25 05:10 Completed ECG Request Stat Y 05/28/25 05:29 Ordered Medical Decision Narrative: In summary, this 84-year-old male with comorbidities described in the HPI presents to the emergency department today with fever, chills, generalized weakness, briefly productive cough, and report of reflux symptoms . On initial evaluation patient is hemodynamically stable, temperature 99.7 on arrival to the ER but was 101.2 with EMS, mildly tachypneic in the low 20s saturating in the low 90s on room air, placed on nasal cannula and now saturating in the mid 90s with improved respiratory rate, he has crackles at the left lung base on auscultation, mild peripheral edema, left hip incision appears well-healing without evidence of infection, only slight pain in the left hip with range of motion. Differential diagnosis includes but is not limited to sepsis, bacteremia, I considered septic joint though patient's left hip he reports has been getting less painful every day since surgery, also considered viral syndrome including but not limited to COVID, influenza, also considered pneumonia, aspiration, reflux, I considered ACS with patient reporting nondescript reflux type symptoms but he also has a history of hiatal hernia which could be causing this, I did consider intra-abdominal infection as well though he has a nontender abdomen. Based on these concerns, I ordered hematologic and serum labs, cardiac workup, VBG, lactic, CT chest, abdomen, pelvis to go all the way through the hip and hopefully evaluate the left hip for any effusion. If artifact from replacement causes any distortion, will get x- ray of the pelvis as well. Also ordered blood cultures, urinalysis, viral swab. With the fever reported by EMS patient meets sepsis criteria, he is not going to receive a full 30 mL/kg bolus because he has a history of volume overload problems on furosemide and is not hemodynamically unstable. 1 L of IV fluids is being administered. He is also receiving empiric vancomycin and Zosyn. Fever is already downtrending from the Tylenol that patient took at home so antipyretic is not being administered in the ER at this time. ECG personally interpreted demonstrates normal sinus rhythm, rate 94, normal axis, normal WI and QTc, no STEMI. Labs personally reviewed demonstrate no leukocytosis, anemia is present with hemoglobin 12.3, nonactionable at this time, patient does have thrombocythemia platelets 448, nonactionable at this time, he does have neutrophil predominance despite not having a leukocytosis. PT/INR normal, patient is acidotic with pH 7.28, pCO2 slightly elevated at 54.8, in the setting of history of COPD I am administering DuoNebs. His lactic on VBG is elevated at 5.1, on chemistry it is 2.5. Regardless this is elevated and does contribute to my concerns for sepsis. CMP is also notable for mildly elevated anion gap, Prenate renal azotemia, mild hyperkalemia but EKG does not demonstrate any hyperacute changes. Patient is being treated with duoneb at this time which will help shift potassium intracellularly and his IV fluids will likely dilute potassium concentration in the blood, repeat potassium pending. Additional labs and CT imaging pending at the time of physician handoff. Patient handed off to Dr. Singh in stable condition. <Pacheco Singh MD - Last Filed: 05/28/25 09:00> Vital Signs: 05/28/25 05:25 05/28/25 05:30 05/28/25 05:32 Temperature 99.7 F H Temperature Source Oral Oral Pulse Rate 94 H Pulse Rate [Right Radial] 99 H Respiratory Rate 16 Blood Pressure 128/69 Blood Pressure [Right Arm] 120/79 Blood Pressure Mean [Right Arm] 92 Blood Pressure Source [Right Arm] Automatic Cuff Blood Pressure Position [Right Arm] Supine 02 Sat by Pulse Oximetry 93 L 96 Oxygen Delivery Method Room Air Oxygen Flow Rate (LPM) 05/28/25 05:54 05/28/25 06:18 05/28/25 06:46 Temperature Temperature Source Pulse Rate 92 H 96 H 97 H Pulse Rate [Right Radial] Respiratory Rate Blood Pressure 100/72 L 149/74 H Blood Pressure [Right Arm] Blood Pressure Mean [Right Arm] Blood Pressure Source [Right Arm] Blood Pressure Position [Right Arm] 02 Sat by Pulse Oximetry 94 L 96 95 Oxygen Delivery Method Oxygen Flow Rate (LPM) 05/28/25 07:02 05/28/25 07:07 05/28/25 07:07 Temperature Temperature Source Pulse Rate 90 89 Pulse Rate [Right Radial] Respiratory Rate Blood Pressure 171/79 H Blood Pressure [Right Arm] Blood Pressure Mean [Right Arm] Blood Pressure Source [Right Arm] Blood Pressure Position [Right Arm] 02 Sat by Pulse Oximetry 100 Oxygen Delivery Method Nasal Cannula Oxygen Flow Rate (LPM) 2 05/28/25 07:15 05/28/25 07:31 05/28/25 07:45 Temperature Temperature Source Pulse Rate 90 88 83 Pulse Rate [Right Radial] Respiratory Rate Blood Pressure 196/84 H 162/65 H 162/86 H Blood Pressure [Right Arm] Blood Pressure Mean [Right Arm] Blood Pressure Source [Right Arm] Blood Pressure Position [Right Arm] 02 Sat by Pulse Oximetry 96 97 97 Oxygen Delivery Method Room Air Room Air Oxygen Flow Rate (LPM) 05/28/25 07:56 05/28/25 08:17 05/28/25 08:30 Temperature Temperature Source Pulse Rate 83 92 H 90 Pulse Rate [Right Radial] Respiratory Rate Blood Pressure 177/78 H 180/76 H 162/74 H Blood Pressure [Right Arm] Blood Pressure Mean [Right Arm] Blood Pressure Source [Right Arm] Blood Pressure Position [Right Arm] 02 Sat by Pulse Oximetry 98 97 96 Oxygen Delivery Method Oxygen Flow Rate (LPM) Lab Data Lab Results 05/28/25 05:00: WBC 10.7, RBC 4.23 L, Hgb 12.3 L, Hct 40.1 L, MCV 94.8 H, MCH 29.1, MCHC 30.7 L, RDW 13.6, Plt Count 448 H, MPV 8.6, Neut % (Auto) 79.6, Lymph % (Auto) 15.6, [place] % (Auto) 2.2, Eos % (Auto) 1.7, Baso % (Auto) 0.4, Neut # (Auto) 8.5 H, Lymph # (Auto) 1.7, [place] # (Auto) 0.2, Eos # (Auto) 0.2, Baso # (Auto) 0.0, PT 10.6, INR 0.95, Sodium 143, Potassium 5.2 H, Chloride 105, Carbon Dioxide 27, Anion Gap 16.2 H, BUN 21 H, Creatinine 0.70, Estimated Creat Clear 58, Estimated GFR 107, Est GFR ( Amer) 130, Glucose 138 H, Lactate 2.5 H, Calcium 9.1, Total Bilirubin 1.1, AST 45, ALT 30, Alkaline Phosphatase 100, Troponin I < 0.01, Total Protein 6.9, Albumin 4.1, Globulin 2.8, Albumin/Globulin Ratio 1.5 05/28/25 05:10: VBG pH 7.28 L, VBG pCO2 54.8 H, VBG pO2 68.5 H, VBG HCO3 25.2, VBG Total CO2 26.9, VBG O2 Saturation 91.1 H, VBG Base Excess -1.5, VBG Lactic Acid 5.1 H 05/28/25 05:35: Chlamy pneumoniae PCR Not detected, Adenovirus (PCR) Not detected, B. pertussis DNA (PCR) Not detected, Coronavirus OC43 (PCR) Not detected, Coronavirus HKU1 (PCR) Not detected, Coronavirus 229E (PCR) Not detected, SARS-CoV-2 (PCR) Not detected, Coronavirus NL63 (PCR) Not detected, Human Metapneumovir PCR Not detected, Influenza A (H1) PCR Not detected, Influ A (H1N1/09) PCR Not detected, Influenza A (H3) PCR Not detected, Influenza Type A (PCR) Not detected, Influenza Type B (PCR) Not detected, M. pneumoniae (PCR) Not detected, Parainfluenza 1 (PCR) Not detected, Parainfluenza 2 (PCR) Not detected, Parainfluenza 3 (PCR) Not detected, Parainfluenza 4 (PCR) Not detected, RSV (PCR) Not detected, Entero/Rhino (PCR) Not detected 05/28/25 06:51: Urine Color Yellow, Urine Appearance Clear, Urine pH 5.5, Ur Specific [place] 1.025, Urine Protein Trace, Urine Glucose (UA) Negative, Urine Ketones Negative, Urine Blood Negative, Urine Nitrate Negative, Urine Bilirubin Negative, Urine Urobilinogen 4.0, Ur Leukocyte Esterase Negative, Urine RBC None, Urine WBC 3-5, Ur Squamous Epith Cells Occasional, Urine Bacteria None 05/28/25 07:16: Potassium 3.4 L D Orders (Tests/Meds): ED MEDICATIONS Discontinued Medications Generic Name Dose Route Start Last Admin Trade Name Chris PRN Reason Stop Dose Admin Albuterol/Ipratropium 9 ml 05/28/25 06:49 05/28/25 07:06 Ipratropium/Albuterol 3 Ml Neb IH 05/28/25 06:50 9 ml ONCE ONE Administration Piperacillin Sod/Tazobactam 100 mls @ 200 mls/hr 05/28/25 05:25 05/28/25 06:21 Sod 4.5 gm/ Sodium Chloride IV 05/28/25 05:54 Infused ONCE ONE Infusion Lactated Ringer's 1,000 mls @ 999 mls/hr 05/28/25 05:27 05/28/25 06:53 Lactated Ringer's 1000 Ml Bag IV 05/28/25 06:27 Infused .Q1H1M ONE Infusion Vancomycin/PEG/NADA/Lysine/Water 1.5 gm in 300 mls @ 150 mls/hr 05/28/25 06:00 05/28/25 08:21 Vancomycin 1.5gm/300ml (Peg) Premix IV 05/28/25 07:59 Infused ONCE ONE Infusion Iopamidol 80 ml 05/28/25 06:08 05/28/25 06:11 Iopamidol-370 (76%);100ml Bottle IV 05/28/25 06:09 80 ml ONCE ONE Administration Miscellaneous 1 each 05/28/25 05:30 05/28/25 05:52 Vancomycin Consult Request NOTAPPLIC 06/27/25 05:29 Not Given CONSULT PHARMACY [facility] Sodium Chloride 10 ml 05/28/25 06:08 05/28/25 06:11 Sodium Chloride 0.9% 10ml Syr (Rad Only) IV 05/28/25 06:09 10 ml ONCE ONE Administration ORDERS Category Date Time Status CT abdomen pelvis w con Stat Cat Scan 05/28/25 05:[address] chest w con Stat Cat Scan 05/28/25 05:27 Completed Complete Blood Count Auto Diff Stat Lab 05/28/25 05:00 Completed Comprehensive Metabolic Panel Stat Lab 05/28/25 05:00 Completed Full Resp Panel w/COVID ([facility]) Routine Lab 05/28/25 05:35 Completed Lactic Acid Stat Lab 05/28/25 05:00 Completed Potassium Stat Lab 05/28/25 07:16 Completed Prothrombin Time INR Stat Lab 05/28/25 05:00 Completed Trop I [Troponin I] Stat Lab 05/28/25 05:00 Completed Troponin I Q3H Lab 05/28/25 11:30 Ordered Urinalysis and Microscopic Stat Lab 05/28/25 06:51 Completed Blood Culture Stat Micro 05/28/25 05:26 Received VBG [Venous Blood Gas] Stat RT 05/28/25 05:10 Completed ECG Request Stat Y 05/28/25 05:29 Ordered Medical Decision Narrative: In summary, this 84-year-old male with comorbidities described in the HPI presents to the emergency department today with fever, chills, generalized weakness, briefly productive cough, and report of reflux symptoms . On initial evaluation patient is hemodynamically stable, temperature 99.7 on arrival to the ER but was 101.2 with EMS, mildly tachypneic in the low 20s saturating in the low 90s on room air, placed on nasal cannula and now saturating in the mid 90s with improved respiratory rate, he has crackles at the left lung base on auscultation, mild peripheral edema, left hip incision appears well-healing without evidence of infection, only slight pain in the left hip with range of motion. Differential diagnosis includes but is not limited to sepsis, bacteremia, I considered septic joint though patient's left hip he reports has been getting less painful every day since surgery, also considered viral syndrome including but not limited to COVID, influenza, also considered pneumonia, aspiration, reflux, I considered ACS with patient reporting nondescript reflux type symptoms but he also has a history of hiatal hernia which could be causing this, I did consider intra-abdominal infection as well though he has a nontender abdomen. Based on these concerns, I ordered hematologic and serum labs, cardiac workup, VBG, lactic, CT chest, abdomen, pelvis to go all the way through the hip and hopefully evaluate the left hip for any effusion. If artifact from replacement causes any distortion, will get x- ray of the pelvis as well. Also ordered blood cultures, urinalysis, viral swab. With the fever reported by EMS patient meets sepsis criteria, he is not going to receive a full 30 mL/kg bolus because he has a history of volume overload problems on furosemide and is not hemodynamically unstable. 1 L of IV fluids is being administered. He is also receiving empiric vancomycin and Zosyn. Fever is already downtrending from the Tylenol that patient took at home so antipyretic is not being administered in the ER at this time. ECG personally interpreted demonstrates normal sinus rhythm, rate 94, normal axis, normal WI and QTc, no STEMI. Labs personally reviewed demonstrate no leukocytosis, anemia is present with hemoglobin 12.3, nonactionable at this time, patient does have thrombocythemia platelets 448, nonactionable at this time, he does have neutrophil predominance despite not having a leukocytosis. PT/INR normal, patient is acidotic with pH 7.28, pCO2 slightly elevated at 54.8, in the setting of history of COPD I am administering DuoNebs. His lactic on VBG is elevated at 5.1, on chemistry it is 2.5. Regardless this is elevated and does contribute to my concerns for sepsis. CMP is also notable for mildly elevated anion gap, Prenate renal azotemia, mild hyperkalemia but EKG does not demonstrate any hyperacute changes. Patient is being treated with duoneb at this time which will help shift potassium intracellularly and his IV fluids will likely dilute potassium concentration in the blood, repeat potassium pending. Additional labs and CT imaging pending at the time of physician handoff. Patient handed off to Dr. Singh in stable condition. I, Pacheco Singh accepted care of this patient at [address] scan of the chest personally interpreted by me shows large left-sided pneumonia in the lower lobes along with small pleural effusion. CT scan of the abdomen pelvis still pending at this time. Please follow-up with radiology reads for final interpretation. Repeat potassium is pending, patient reports significant symptomatic relief after DuoNeb. Urinalysis shows no signs of UTI or hematuria. At this point I think the most likely source of the patient's fever is a pneumonia, he was on a recent course of oral antibiotics so concern for resistant bacteria is high. Final read of CT scan personally reviewed by me shows bilateral pneumonia, left worse than right, no acute processes within the abdomen pelvis, no concern for hip effusion. Based on patient's elevated lactate, curb 65 score of 2, and high concern for resistant bacteria I consulted the internal medicine service for admission and further management. The internal medicine service evaluated the patient and felt that the patient was most appropriate for discharge with plans for close follow-up with Dr. Aguilera and a 7-day course of Levaquin. The patient was comfortable with this plan and able to tolerate room air. His lactate on his VBG was elevated but on his CMP it was only mildly elevated. Initial potassium was elevated though we believe this was due to the sample being hemolyzed, recheck showed a potassium of 3.4. Given that the patient's hyperkalemia and elevated lactate seem to have improved, he has no leukocytosis, and he is able to ambulate well on room air with no appreciable desaturations, we feel comfortable with discharging the patient home with outpatient biotics, albuterol inhaler, and close follow-up with internal medicine outpatient. Critical Care <Zoë Danielson MD - Last Filed: 05/28/25 06:50> Critical Care Time Critical Care Time: Yes Attestation: On 05/28/25, the high probability of a clinically significant, sudden or life threatening deterioration of the following system(s) required my full and direct attention, intervention and personal management. The time I documented below is in addition to time spent performing reported procedures but includes the following listed in this critical care notation. Total Time Total Critical Care Time: 35
[2025-05-28 05:37] LABS: Chloride 105 mmol/L (98-107); Hematocrit 40.1 % (42.0-52.0); Hemoglobin 12.3 g/dL (14.1-18.0); Immature Granulocytes % 0.5 %; Mean Corpuscular HGB Conc 30.7 g/dL (31.8-35.4); Mean Corpuscular Hemoglobin 29.1 pg (27.0-31.2); Mean Corpuscular Volume 94.8 fl (80-94); Nucleated Red Blood Cells % 0 %; Platelet Count 448 K/mm3 (142-424); Red Blood Count 4.23 M/mm3 (4.60-6.20); Red Cell Distribution Width-SD 47.4 fL; White Blood Count 10.7 K/mm3 (4.8-10.8)
[2025-05-28 05:38] LABS: Albumin Level 4.1 g/dl (3.5-5.0); Potassium 5.2 mmoL/L (3.5-5.1); Sodium 143 mmol/L (136-145)
[2025-05-28] MEDS: LACTATED RINGERS 1000ML 1,000 ML 999 ML IV (05:38)
[2025-05-28 05:40] LABS: Blood Urea Nitrogen 21 mg/dl (9-20); Creatinine Clearance Estimated 58 mL/min (50-200); Creatinine,Serum 0.70 mg/dl (0.66-1.25); Estimated Glomerular Filt Rate 107 ml/min (>60); GFR (African American) 130 ML/MIN (>60)
[2025-05-28 05:40] LABS: VBG HCO3 25.2 mmol/L (23-30); VBG PCO2 54.8 mmol/L (35-51); VBG PH 7.28 mmol/L (7.31-7.41); VBG PO2 68.5 mmol/L (28-40)
[2025-05-28 05:41] LABS: Alanine Aminotransferase 30 U/L (12-78); Albumin/Globulin Ratio 1.5 (1.1-1.8); Alkaline Phosphatase 100 U/L (38-126); Anion Gap 16.2 mEq/L (5-15); Aspartate Amino Transferase 45 U/L (17-59); Bilirubin,Total 1.1 mg/dl (0.2-1.3); Calcium 9.1 mg/dl (8.4-10.2); Carbon Dioxide 27 mmol/L (22.0-30.0); Globulin 2.8 g/dL (1.3-3.2); Glucose 138 mg/dl (74-100); INR 0.95 (0.9-1.1); Prothrombin Time 10.6 seconds (10.1-12.5); Total Protein,Serum 6.9 g/dl (6.3-8.2)
[2025-05-28 05:42] LABS: Adenovirus,PCR Not Detected (NotDetected); Chlamydophila Pneumoniae, PCR Not Detected (NotDetected); Coronavirus 19, PCR Not Detected (NotDetected); Coronovirus HKU1,PCR Not Detected (NotDetected); Influenza A, PCR Not Detected (NotDetected); Influenza AH1, 2009 Not Detected (NotDetected); Influenza AH1, PCR Not Detected (NotDetected); Influenza AH3,PCR Not Detected (NotDetected); Influenza B, PCR Not Detected (NotDetected); Mycoplasma Pneumoniae, PCR Not Detected (NotDetected); Parainfluenza 1, PCR Not Detected (NotDetected); Parainfluenza 2, PCR Not Detected (NotDetected); Parainfluenza 3, PCR Not Detected (NotDetected); Parainfluenza 4, PCR Not Detected (NotDetected)
[2025-05-28 05:45] LABS: Lactate Venous 5.1 mmol/L (0.4-2.0)
--- NOTE | 2025-05-28 05:48 | ECG_ITS ---
APPROVED REPORT Exam: Resting ECG HR:94 bpm ECG Measurements Heart Rate 94 AXES OR 142 P 54 QRSd 98 QRS 25 QT 346 T 38 QTc 398 Conclusion SINUS RHYTHM NORMAL ECG Electronically signed by : ASHLYN DUBON, 05/29/2025 07:00:18
[2025-05-28] MEDS: PIPERACILLIN/TAZO 4.5 GM in 0.9 % SODIUM CHLORIDE 100 ML IV (05:51)
[2025-05-28 05:56] LABS: Troponin I < 0.01 ng/ml (0.00-0.034)
[2025-05-28] MEDS: SODIUM CHLORIDE 0.9% 10ML SYR (RAD ONLY) 10 ML IV (06:11)
[2025-05-28] MEDS: IOPAMIDOL-370 (76%);100ML BOTTLE 80 ML IV (06:11)
[2025-05-28] MEDS: VANCOMYCIN/WATER FOR INJ (PEG) 1.5 GM/300 ML PIGGYBACK IV (06:19)
[2025-05-28 06:57] LABS: Microscopic, Urine URINE MICROSCOPIC (MICROSCOPIC)
[2025-05-28] MEDS: IPRATROPIUM/ALBUTEROL 3 ML NEB 9 ML IH (07:06)
[2025-05-28 07:12] LABS: Bilirubin,Urine Negative (Negative); Color,Urine YELLOW (Yellow); Glucose,Urine (UA) Negative (Negative); Ketones,Urine Negative (Negative); Leukocyte Esterase,Urine Negative (Negative); PH,Urine 5.5 (5.0-8.5); Protein,Urine TRACE (Negative); Specific Gravity, Urine 1.025 (1.005-1.030); Urobilinogen,Urine 4.0 EU/dl (0.2)
[2025-05-28 07:42] LABS: Potassium 3.4 mmoL/L (3.5-5.1)
--- NOTE | 2025-05-28 07:57 | PC.NURSE ---
provider on phone with hospitalist
[2025-05-28 08:05] LABS: Squamous Epithelial Cell,Urine Occasional #/hpf (0-5)
--- NOTE | 2025-05-28 08:18 | PC.NURSE ---
AMISH DICKEY APRN AT BEDSIDE
--- NOTE | 2025-05-28 08:59 | PC.NURSE ---
pt walked with his walker down the hallway. pts 02 monitored during the walk. pt was 92-93% 02 on room air while walking. notified.
[2025-05-28 09:43] LABS: Reflex Lactic Add Lactic Reflex
--- NOTE | 2025-05-28 11:16 | P.CONS_ITS ---
<Statement entered by Jamarcus Esquivel MD - 05/29/25 09:14> Agree with plan of care as outlined by the [facility]. History of Present Illness *Admission Date: 05/28/25 *Reason for visit:: Fever *History of present illness: Mr. Monae is a 84-year-old male who presented to the emergency department today with concerns of fever and shortness of breath. He has a significant medical history of recent left hip replacement, DJD, COPD, BPH, hypertension, CAD, hyperlipidemia, and GERD. He states that he recently had his left hip replaced and complains now of fever, chills, weakness, cough, and heartburn. Upon admission to the ED his temperature was 99.7, respirations 20, O2 saturation low 90s on room air. [facility] Disclaimer: The information contained in this section may have been updated after the patient was seen, as this information can be updated by other users. Medical History Pneumonia Atrial fibrillation Onychomycosis Allergic rhinitis Asthma-chronic obstructive pulmonary disease overlap syndrome Stopped smoking with greater than 30 pack year history Asthma-COPD overlap syndrome Sinus bradycardia COPD (chronic obstructive pulmonary disease) Surgical History History of laparoscopic cholecystectomy History of cardiac catheterization History of colonoscopy History of prostate surgery Family History Other No significant family history Social History Smoking Status: Former smoker tobacco type: cigarettes packs per day: 1 second hand exposure: No alcohol intake: never substance use type: denies use current occupational status: other Travel in the last 8 weeks?: None household members: none housing: house current occupational exposures/hazards: No caffeine: Yes Review of Systems Constitutional Constitutional: Reports chills and Reports fever(s) ENT Ears, Nose, Mouth, and Throat: Denies sinus pain and Denies sore throat *Cardiovascular Cardiovascular: Denies chest pain, Denies dyspnea, Denies leg edema and Denies pedal edema *Respiratory Respiratory: Denies cough, Denies dyspnea and Denies pain on inspiration *Gastrointestinal Gastrointestinal: Denies abdominal pain, Denies constipation, Denies loose stools, Denies nausea and Denies vomiting *Genitourinary Genitourinary: Denies difficulty urinating and Denies dysuria Exam Data for Last 24 hours Vital signs and Labs for Last 24 Hours: Temp Pulse Resp BP Pulse Ox O2 Del Method O2 Flow Rate 99 F 86 18 165/75 H 96 Room Air 2 05/28/25 09:00 05/28/25 09:00 05/28/25 09:00 05/28/25 09:00 05/28/25 08:30 05/28/25 09:00 05/28/25 07:07 Laboratory Results - last 24 hr 05/28/25 05:00: WBC 10.7, RBC 4.23 L, Hgb 12.3 L, Hct 40.1 L, MCV 94.8 H, MCH 29.1, MCHC 30.7 L, RDW 13.6, Plt Count 448 H, MPV 8.6, Neut % (Auto) 79.6, Lymph % (Auto) 15.6, [place] % (Auto) 2.2, Eos % (Auto) 1.7, Baso % (Auto) 0.4, Neut # (Auto) 8.5 H, Lymph # (Auto) 1.7, [place] # (Auto) 0.2, Eos # (Auto) 0.2, Baso # (Auto) 0.0, PT 10.6, INR 0.95, Sodium 143, Potassium 5.2 H, Chloride 105, Carbon Dioxide 27, Anion Gap 16.2 H, BUN 21 H, Creatinine 0.70, Estimated Creat Clear 58, Estimated GFR 107, Est GFR ( Amer) 130, Glucose 138 H, Lactate 2.5 H, Calcium 9.1, Total Bilirubin 1.1, AST 45, ALT 30, Alkaline Phosphatase 100, Troponin I < 0.01, Total Protein 6.9, Albumin 4.1, Globulin 2.8, Albumin/Globulin Ratio 1.5 05/28/25 05:10: VBG pH 7.28 L, VBG pCO2 54.8 H, VBG pO2 68.5 H, VBG HCO3 25.2, VBG Total CO2 26.9, VBG O2 Saturation 91.1 H, VBG Base Excess -1.5, VBG Lactic Acid 5.1 H 05/28/25 05:35: Chlamy pneumoniae PCR Not detected, Adenovirus (PCR) Not detected, B. pertussis DNA (PCR) Not detected, Coronavirus OC43 (PCR) Not detected, Coronavirus HKU1 (PCR) Not detected, Coronavirus 229E (PCR) Not detected, SARS-CoV-2 (PCR) Not detected, Coronavirus NL63 (PCR) Not detected, Human Metapneumovir PCR Not detected, Influenza A (H1) PCR Not detected, Influ A (H1N1/09) PCR Not detected, Influenza A (H3) PCR Not detected, Influenza Type A (PCR) Not detected, Influenza Type B (PCR) Not detected, M. pneumoniae (PCR) Not detected, Parainfluenza 1 (PCR) Not detected, Parainfluenza 2 (PCR) Not detected, Parainfluenza 3 (PCR) Not detected, Parainfluenza 4 (PCR) Not detected, RSV (PCR) Not detected, Entero/Rhino (PCR) Not detected 05/28/25 06:51: Urine Color Yellow, Urine Appearance Clear, Urine pH 5.5, Ur Specific [place] 1.025, Urine Protein Trace, Urine Glucose (UA) Negative, Urine Ketones Negative, Urine Blood Negative, Urine Nitrate Negative, Urine Bilirubin Negative, Urine Urobilinogen 4.0, Ur Leukocyte Esterase Negative, Urine RBC None, Urine WBC 3-5, Ur Squamous Epith Cells Occasional, Urine Bacteria None 05/28/25 07:16: Potassium 3.4 L D I & O for Last 24 hours: Intake & Output 05/25/25 05/26/25 05/27/25 05/28/25 23:59 23:59 23:59 23:59 Intake Total 1400 / 1400 Output Total 250 / 250 Balance 1150 / 1150 Weight 74.843 kg Constitutional Constitutional: no acute distress, average body habitus and cooperative *Routine HEENT Exam Head: Present normocephalic Eye: Present EOMI ENT: Present mucous membranes moist *Routine Neck Exam Neck: Present supple and full ROM; Absent JVD or lymphadenopathy *Routine Respiratory Exam Respiratory: Present crackles (Left lower lobe), normal respiratory effort, able to speak in complete sentences and symmetric chest movement; Absent respiratory distress, stridor or wheezes *Routine Cardiovascular Exam Cardiovascular: Present RRR, Normal S1 and Normal S2; Absent murmur *Routine Abdominal Exam Abdominal: Present soft and normoactive bowel sounds; Absent tenderness or distended *Routine Extremities Exam Extremities: Present full ROM, pulses intact and normal capillary refill; Absent edema or calf tenderness *Routine Skin Exam Skin: Present intact Comments: Scattered bruising on lower extremities, postsurgical changes to left hip, clean dry and intact, no erythema or exudate noted *Routine Neurological Exam Neurological: Present alert, oriented X3, vision grossly intact, hearing grossly intact and normal speech Meds Home Medications and Allergies Home Medications ?Medication ?Instructions ?Recorded ?Confirmed ?Type aspirin 81 mg tablet,delayed 81 mg PO DAILY heart heal th 12/09/20 05/08/25 History release ipratropium 0.5 mg-albuterol 3 mg 3 ml inhalation Q6H PRN shortness 12/04/21 05/08/25 Rx (2.5 mg base)/3 mL nebulization of breath 90 days #180 mL soln ketoconazole 2 % topical cream 1 applic topical BID Sk in condition 01/05/23 05/08/25 History furosemide 20 mg tablet See Rx Instructions .Route 0 09/14/24 05/08/25 Rx .COMPLEX #90 tabs omeprazole 40 mg capsule,delayed See Rx Instructions . Route 09/14/24 05/08/25 Rx release .COMPLEX #90 caps potassium chloride 8 mEq See Rx Instructions .Route 0 09/14/24 05/08/25 Rx tablet,extended release .COMPLEX #90 tabs tamsulosin 0.4 mg capsule 0.4 mg PO HS prostate #90 ca ps 09/14/24 05/08/25 Rx atorvastatin 80 mg tablet See Rx Instructions .Route 0 02/27/25 05/08/25 Rx .COMPLEX #90 tabs tadalafil 5 mg tablet See Rx Instructions .Route 0 02/27/25 05/08/25 Rx .COMPLEX #30 tabs amlodipine 2.5 mg tablet See Rx Instructions .Route 0 04/02/25 05/08/25 Rx .COMPLEX #90 tabs atenolol 25 mg tablet See Rx Instructions .Route 0 04/02/25 05/08/25 Rx .COMPLEX #90 tabs albuterol sulfate 90 mcg/actuation 2 inh inhalation Q6 H PRN shortness 04/25/25 05/08/25 Rx aerosol inhaler of breath or wheezing 90 day s #8.5 grams finasteride 5 mg tablet See Rx Instructions .Route 0 04/25/25 05/08/25 Rx .COMPLEX #90 tabs fluticasone fur. 200 mcg-umeclid 1 inh inhalation STEPHANIE Y 90 days #90 04/25/25 05/08/25 Rx 62.5 mcg-vilant 25 mcg ea inhalat.powder (Trelegy Ellipta) fluticasone propionate 50 2 spray intranasal DAILY 90 days 04/25/25 05/08/25 Rx mcg/actuation nasal #16 grams spray,suspension (Flonase Allergy Relief) gabapentin 300 mg capsule 300 mg PO BID pain #180 caps 05/13/25 Rx levofloxacin 750 mg tablet 750 mg PO DAILY #7 tabs Rx New Prescriptions to Start Prescriptions: levofloxacin Sandra Bland Allergies Allergy/AdvReac Type Severity Reaction Status Date / Time diphenhydramine (From Allergy na Verified 05/08/25 14:06 Benadryl) Results Labs 05/28/25 05:00 05/28/25 07:16 Labs: Abnormal lab results 05/28/25 05/28/25 05/28/25 Range/Units 05:00 05:10 07:16 RBC 4.23 L (4.60-6.20) M/mm3 Hgb 12.3 L (14.1-18.0) g/dL Hct 40.1 L (42.0-52.0) % MCV 94.8 H (80-94) fl MCHC 30.7 L (31.8-35.4) g/dL Plt Count 448 H (142-424) K/mm3 Neut # (Auto) 8.5 H (1.8-7.8) K/mm3 VBG pH 7.28 L (7.31-7.41) mmol/L VBG pCO2 54.8 H (35-51) mmol/L VBG pO2 68.5 H (28-40) mmol/L VBG O2 Saturation 91.1 H (50-70) % VBG Lactic Acid 5.1 H (0.4-2.0) mmol/L Potassium 5.2 H 3.4 L D (3.5-5.1) mmoL/L Anion Gap 16.2 H (5-15) mEq/L BUN 21 H (9-20) mg/dl Glucose 138 H (74-100) mg/dl Lactate 2.5 H (0.7-2.1) mmol/L H & H 05/28/25 Range/Units 05:00 Hgb 12.3 L (14.1-18.0) g/dL Hct 40.1 L (42.0-52.0) % Coagulation 05/28/25 Range/Units 05:00 INR 0.95 (0.9-1.1) All other labs normal. Assessment and Plan *Assessment and plan (1) Pneumonia: Status: Acute Category: Medical Code(s): J18.9 - Pneumonia, unspecified organism Plan Mr. Monae is a 84-year-old male who presented to the emergency department today with concerns of fever and shortness of breath. He has a significant medical history of recent left hip replacement, DJD, COPD, BPH, hypertension, CAD, hyperlipidemia, and GERD. He states that he recently had his left hip replaced and complains now of fever, chills, weakness, cough, and heartburn. Upon admission to the ED his temperature was 99.7, respirations 20, O2 saturation low 90s on room air. Workup was done in the emergency department which revealed left lung consolidation concerning for pneumonia. Patient's COVID/flu respiratory swab was negative, patient denied lower extremity tenderness, no lower extremity edema noted, left hip incision is well-healing/approximated with no erythema. Patient denies abdominal pain, chest pain, nausea, vomiting, diarrhea. Patient did receive 1 L fluid bolus, vancomycin, and Zosyn empirically in the ED. Lab work was reassuring with no leukocytosis, slight anemia, hemoglobin 12.3. Initial lactic on VBG was elevated at 5.1, chemistry shows 2.5. Assessment of the patient reveals that he is well-appearing, 97% on room air, and feels that he is at baseline for returning home. Discussed with patient initiating 7-day course of Levaquin p.o. and close follow-up with Dr. Aguilera. Patient is agreeable to this plan and understands criteria to follow-up if needed.
--- OUTSIDE RECORDS SUMMARY | 2025-07-11 20:00 | XMS_ITS | Clinical Summary ---
Author Organization Unknown Care Team Providers Care Hand Trucker Name Role Phone YENNI DO, JESS Unavailable Unavailable FEDERICO PT, JOYCE Unavailable Unavailable SHERRI PRINCIPAL ACCOUNTS CLERK, CAIO Unavailable Unavailable Payers Payer Name Policy Type Policy Number Effective Date Expira tion Date [facility].HHAHRLY.MA2.C.[facility] [id number] ADMISSIONS.CODEREQUEST.[facility].A [facility] [id number] Problems Condition Name Condition Details Condition Category Status Onset Date Resolution Date Last Treatment Date Treating Clinician Comments AFTERCARE FOLLOWING JOINT REPLACEMENT SURGERY Active 05-08 00:00: 00 Allergies, Adverse Reactions, Alerts Allergy Name Allergy Type Status Severity Reaction(s) Onset Date Inactive Date Treating Clinician Comments BENADRYL Propensity to adverse reactions Active 2025-05 12:42:1 5 Vital Signs Vital Name Observation Time Observation Value Commen ts Temperature 2025-05-24 10:40:00.000 97.6 [degF] Temperature 2025-05-22 10:47:00.000 98.6 [degF] Temperature 2025-05-20 11:11:00.000 97.6 [degF] Temperature 2025-05-17 15:54:00.000 98.2 [degF] Temperature 2025-05-14 12:44:00.000 97.6 [degF] BMI (%) 2025-05-14 12:41:49.000 25 kg/m2 Height 2025-05-14 12:41:35.000 68 [in_us] Pulse 2025-05-24 10:40:00.000 65 /min Pulse 2025-05-22 10:47:00.000 70 /min Pulse 2025-05-20 11:11:00.000 69 /min Pulse 2025-05-17 15:54:00.000 74 /min Pulse 2025-05-14 12:44:00.000 64 /min O2 Saturation (%) 2025-05-17 15:54:00.000 96 % O2 Saturation (%) 2025-05-14 12:44:00.000 93 % Respirations 2025-05-24 10:40:00.000 18 /min Respirations 2025-05-22 10:47:00.000 18 /min Respirations 2025-05-20 11:11:00.000 18 /min Respirations 2025-05-17 15:54:00.000 18 /min Respirations 2025-05-14 12:44:00.000 18 /min Weight (lbs) 2025-05-14 12:41:49.000 165 [lb_av] Systolic Blood Pressure 2025-05-24 10:40:00.000 131 mm [Hg] Systolic Blood Pressure 2025-05-22 10:47:00.000 126 mm [Hg] Systolic Blood Pressure 2025-05-20 11:11:00.000 135 mm [Hg] Systolic Blood Pressure 2025-05-17 15:54:00.000 145 mm [Hg] Systolic Blood Pressure 2025-05-14 12:44:00.000 124 mm [Hg] Diastolic Blood Pressure 2025-05-24 10:40:00.000 [...] TO EVALUATE, OBSERVE / ASSESS, AND MONITOR, PRINCIPAL ACCOUNTS CLERK TO OBSERVE AND MONITOR, PROVIDE SKILLED THERAPEUTIC INTERVENTION, ACTIVITY, EDUCATION, AND TRAINING TO ADDRESS; [code = AGENCY MAY PERFORM A RESUMPTION OF CARE VISIT FOLLOWING ANY HOSPITAL ADMISSION. PT TO EVALUATE, OBSERVE / ASSESS, AND MONITOR, PRINCIPAL ACCOUNTS CLERK TO OBSERVE AND MONITOR, PROVIDE SKILLED THERAPEUTIC INTERVENTION, ACTIVITY, EDUCATION, AND TRAINING TO ADDRESS;] Future Scheduled Test SIT TO/FRO M STAND TRANSFERS (PT/PRINCIPAL ACCOUNTS CLERK) [code = SIT TO/FROM STAND TRANSFERS (PT/PRINCIPAL ACCOUNTS CLERK)] Future Scheduled Test PT/PRINCIPAL ACCOUNTS CLERK TO PROVIDE GAIT TRAINING FOR IMPROVED MOBILITY AND /OR TO NORMALIZE GAIT PATTERN [code = PT/PRINCIPAL ACCOUNTS CLERK TO PROVIDE GAIT TRAINING FOR IMPROVED MOBILITY AND /OR TO NORMALIZE GAIT PATTERN] Future Scheduled Test NEUROMUSCU LAR RE-EDUCATION / BALANCE / POSTURAL CONTROL (PT) [code = NEUROMUSCULAR RE-EDUCATION / BALANCE / POSTURAL CONTROL (PT)] Future Scheduled Test THERAPEUTI C EXERCISES AND ESTABLISHING A HOME EXERCISE PROGRAM (PT/PRINCIPAL ACCOUNTS CLERK) [code = THERAPEUTIC EXERCISES AND ESTABLISHING A HOME EXERCISE PROGRAM (PT/PRINCIPAL ACCOUNTS CLERK)] Future Scheduled Test PT/PRINCIPAL ACCOUNTS CLERK TO IDENTIFY FALL RISK FACTORS; EDUCATE THE PATIENT/CAREGIVER ON WAYS TO REDUCE FALL RISK FACTORS AND ESTABLISH HOME EXERCISE PROGRAM TO MINIMIZE FALL RISK. MAY TEACH THE PATIENT FLOOR RECOVERY WHEN CLINICALLY APPROPRIATE [code = PT/PRINCIPAL ACCOUNTS CLERK TO IDENTIFY FALL RISK FACTORS; EDUCATE THE PATIENT/CAREGIVER ON WAYS TO REDUCE FALL RISK FACTORS AND ESTABLISH HOME EXERCISE PROGRAM TO MINIMIZE FALL RISK. MAY TEACH THE PATIENT FLOOR RECOVERY WHEN CLINICALLY APPROPRIATE] Future Scheduled Test PT / PRINCIPAL ACCOUNTS CLERK T O INSTRUCT PATIENT/CAREGIVER ON RISK FOR HOSPITALIZATION/EMERGENCY ROOM VISITS, TEACH SIGNS AND SYMPTOMS THAT PUT PATIENT AT RISK, WHEN TO NOTIFY NURSE/PHYSICIAN OF COMPLICATIONS/DECLINE, AND WHEN TO CALL 911. [code = PT / PRINCIPAL ACCOUNTS CLERK TO INSTRUCT PATIENT/CAREGIVER ON RISK FOR HOSPITALIZATION/EMERGENCY ROOM VISITS, TEACH SIGNS AND SYMPTOMS THAT PUT PATIENT AT RISK, WHEN TO NOTIFY NURSE/PHYSICIAN OF COMPLICATIONS/DECLINE, AND WHEN TO CALL 911.] Future Scheduled Test PT / PRINCIPAL ACCOUNTS CLERK T O MONITOR AND EDUCATE ON OXYGEN SATURATION DURING ADLS/IADLS, NOTIFY PHYSICIAN AND/OR THE RN CLINICAL MAT TESTER FOR PHYSICIAN NOTIFICATION AND IF O2 SATS BELOW PHYSICIAN ORDERED PARAMETERS AFTER 10 MIN OF REST [code = PT / PRINCIPAL ACCOUNTS CLERK TO MONITOR AND EDUCATE ON OXYGEN SATURATION DURING ADLS/IADLS, NOTIFY PHYSICIAN AND/OR THE RN CLINICAL MAT TESTER FOR PHYSICIAN NOTIFICATION AND IF O2 SATS [...] End Date/Time Encounter Type Admission Type Attending [facility] Department Encounter ID Discharge Date Discharge Status Discharge Condition Discharge Reason Percent Goals Met 2025-05-14 00:00:00 2025-07-12 00:00:00 Outpatient NEW ADMISSION JOYCE CABALLERO [facility] [id number] 0.00
== END 2025-05-28 09:11 | disposition home or self-care (01) ==
PROVIDERS: Emergency Provider Emergency Medicine; PCP Internal Medicine
DX: J18.9 Pneumonia, unspecified organism (principal); R74.02 Elevation of levels of lactic acid dehydrogenase [LDH]; E87.29 Other acidosis; R50.9 Fever, unspecified; M25.552 Pain in left hip; J44.9 Chronic obstructive pulmonary disease, unspecified; Z87.891 Personal history of nicotine dependence; Z96.642 Presence of left artificial hip joint
CPT/HCPCS: 0223U; 71260; 74177; 80053; 81001; 82803; 83605; 84132; 84484; 85025; 85610; 87040; 93005; 96365; 96366; 96367; 99285; J2543; J3375; J7120; Q9967

== ENCOUNTER 2025-06-15 10:35 | Emergency (ER) | payer MEDICARE, SELFPAY ==
--- OUTSIDE RECORDS SUMMARY | 2025-06-15 10:49 | XMS_ITS | Data Portability ---
Author Organization [place] - [facility] Address [address] [place] [address] Care Team Providers Care Marketing Copywriter Name Role Phone LIBAN POPE Primary Care Provider Assessment No assessment recorded. Plan of Treatment Reminders Order Date Submit Date Provider Last Modified By Organization Details Last Modified Time Details Appointments ORT EST 15 2024 10:15A M ABELINO HYMAN, DO Not available Not available Not available Lab None recorded. Referral None recorded. Procedures None recorded. Surgeries None recorded. Imaging None recorded. Medication Orders Kenalog 10 mg/mL suspensio n for injection [address] [place] [address] Pharmacy, [address] [place] [address], [facility] 2, TomiJUAN CARLOS, [address], 04/29/2025 17:01:45 bupivacai ne (PF) 0.5 % (5 mg/mL) injection solution [address] [place] [address], [address] [place] [address], [facility], Tomi JUAN CARLOS, [address], 04/29/2025 17:01:45 Patient TargetsNo targets recorded. Patient InstructionsNo instructions recorded. Reason for Referral None Reported. Results Created Date Observation Date Name Description Value Unit Range Abnormal Flag Note LastModifiedBy Organization Detail LastModifiedTime 05/01/2005/01/2025 CBC W/O DIFF note See Note Order ing Provi lissette: Abelino Hyman DO Not Available [address] [place], [address], 05/01/2025 11:16:33 05/01/2005/01/2025 CBC W/O DIFF white blood cell 10.7 10e3/ uL 4.5-13 .0 normal Not Available [place] [address], [place], [address], 05/01/2025 11:16:33 05/01/20 25 05/01/2025 CBC W/O DIFF red blood cell 4.77 10e6/ uL 4.10-5 .70 normal Not Available [place] [address], [place], [address], 05/01/2025 11:16:33 05/01/20 25 05/01/2025 CBC W/O DIFF hemoglobin 14.1 g/dL 12.0-1 6.9 normal Not Available [place] [address], [place], [address], 05/01/2025 11:16:33 05/01/20 25 05/01/2025 CBC W/O DIFF hematocrit 42.5 % 36.0-4 9.0 normal Not Available [place] [address], [place], [address], 05/01/2025 11:16:33 05/01/20 25 05/01/2025 CBC W/O DIFF mean cell volume 89 fL 78.0-9 8.0 normal Not Available [place] [address], [place], [address], 05/01/2025 11:16:33 05/01/20 25 05/01/2025 CBC W/O DIFF mean cell HGB 29.6 pg 25.0-3 5.0 normal Not Available [place] [address], [place], [address], 05/01/2025 11:16:33 05/01/20 25 05/01/2025 CBC W/O DIFF mean cell HGB concentratio n 33.2 g/dL 31.0-3 6.0 normal Not Available [address] , [place], [address], 05/01/2025 11:16:33 05/01/20 25 05/01/2025 CBC W/O DIFF red cell distribution width 13.3 % 11.0-1 5.0 normal Not Available [address] , [place], [address], 05/01/2025 11:16:33 05/01/20 25 05/01/2025 CBC W/O DIFF platelet count 291 10e3/ uL 150-40 0 normal Not Available [address] , [place], [address], 05/01/2025 11:16:33 05/01/20 25 05/01/2025 CBC W/O DIFF performing lab see note - [address] [facility] [address] Not Available [address] , [place], [address], 05/01/2025 11:16:33 05/01/20 25 05/01/2025 GLYCO HEMOG LOBIN (HGB A1C) note See Note Order ing Provi lissette: Abelino Brennan Yenni DO Not Available [address] , [place], [address], 05/01/2025 11:53:54 05/01/2005/01/2025 GLYCO HEMOG LOBIN (HGB A1C) glycohemoglo bin (HGB A1C) 5.6 % 4.5-6. 2 normal Predi abete s: 5.7 - 6.4 Diabe bruce: >6.4 Glyce rafiq contr ol for adult s with diabe bruce: <7.0 Not Available [address] , [place], [address], 05/01/2025 11:53:54 05/01/20 25 05/01/2025 GLYCO HEMOG LOBIN (HGB A1C) performing lab see note - [facility] [address] [facility] [address] Not Available [address] , [place], [address], 05/01/2025 11:53:54 05/01/20 25 05/01/2025 ELECT ROLYT ES PANEL note See Note Order ing Provi lissette: Abelino Hyman DO Not Available [address] , [place], [address], 05/01/2025 12:07:16 05/01/20 25 05/01/2025 ELECT ROLYT ES PANEL sodium 140 mmol/ L 136-14 5 normal Not Available [address] , [place], [address], 05/01/2025 12:07:16 05/01/20 25 05/01/2025 ELECT ROLYT ES PANEL potassium 4.2 mmol/ L 3.5-5. 1 normal Not Available [address] , [place], [address], 05/01/2025 12:07:16 05/01/20 25 05/01/2025 ELECT ROLYT ES PANEL chloride 103 mmol/ L 98-107 normal Not Available [address] , [place], [address], 05/01/2025 12:07:16 05/01/20 25 05/01/2025 ELECT ROLYT ES PANEL carbon dioxide 27 mmol/ L 24-33 normal Not Available [address] , [place], [address], 05/01/2025 12:07:16 05/01/20 25 05/01/2025 ELECT ROLYT ES PANEL anion gap 14.2 mmol/ L 10-20 normal Not Available [address] , [place], [address], 05/01/2025 12:07:16 05/01/20 25 05/01/2025 ELECT ROLYT ES PANEL performing lab see note [facility] [address] [facility] [address] Not Available [address] , [place], [address], 05/01/2025 12:07:16 05/01/20 25 05/01/2025 BLOOD UREA NITRO GEN note See Note Order ing Provi lissette: Abelino Hyman DO Not Available [address] [place], [place], [address], 05/01/2025 12:07:16 05/01/20 25 05/01/2025 BLOOD UREA NITRO GEN blood urea nitrogen 37 mg/dL 7-18 high Not Available [address] , [place], [address], 05/01/2025 12:07:16 05/01/20 25 05/01/2025 BLOOD UREA NITRO GEN performing lab see note ML - [facility] [address] [facility] [address] [facility] [address] Not Available [address] [place], [place], [address], 05/01/2025 12:07:16 05/01/20 25 05/01/2025 CREAT ININE W/GFR note See Note Order ing Provi lissette: Abelino Hyman DO Not Available [address] [place], [place], [address], 05/01/2025 12:07:17 05/01/20 25 05/01/2025 CREAT ININE W/GFR creatinine 1.00 mg/dL 0.70-1 .30 normal Not Available [address] [place], [place], [address], 05/01/2025 12:07:17 05/01/2005/01/2025 CREAT ININE W/GFR GFR (estimated) 74 mL/mi n >60 normal [IM HODA NT]: The 2020 CKD-E PI equat ion is now the recom rajesh d stand rosalie. This versi on does not inclu de race, as do the 2008 and 2011 CKD-E PI creat inine and creat inine -cyst atin C equat ions. Pleconor e note that the eGFR now repor shelli is gener ated by the new 2020 CKD-E PI equat ion, which decre ases the eGFR for black s by up to 10% and incre ases the eGFR for non-b lacks by up to 10% in gerald rison to the old equat ion. To gerald re a legac y eGFR to a curre nt value , a 2008 CKD-E PI calcu lator is easil y seasergey hable on the inter net. Calcu lated GFR: This calcu lated GFR is advoc ated by the Natio nal Kidne y Found ation to be used as an indic ator of Chron ic Kidne y Disea se (CKD) . 5 Stage s of Chron ic Kidne y Disea se. Stage 1 90 mL/mi n or more Healt hy kidne ys or Kidne y damag e with jose juan l or high GFR detai ls Stage 2 60 to 89 mL/mi n Kidne y damag e and mild decre ase in GFR detai ls Stage 3 30 to 59 mL/mi n Moder ate decre ase in GFR detai ls Stage 4 15 to 29 mL/mi n Sever e decre ase in GFR detai ls Stage 5 Less than 15 mL/mi n On dialy sis or Kidne y failu re Patie nt's clini alex statu s must be consi dered for the care of your patie nt. Not Available [address] [place], [place], [address], 05/01/2025 12:07:17 05/01/20 25 05/01/2025 CREAT ININE W/GFR performing lab see note ML - [facility] [address] [place] [address] Not Available [address] [place], [address], 05/01/2025 12:07:17 05/01/20 25 05/01/2025 FRUCT OSAMI NE note See Note Order ing Provi lissette: Abelino Hyman DO Not Available [address] , [place], [address], 05/02/2025 14:12:36 05/01/20 25 05/01/2025 FRUCT OSAMI NE fructosamine 224 umol/ L 0-285 Publi shed refer ence inter mary for appar ently healt hy subje cts betwe en age 20 and 60 is 205 - 285 umol/ L and in a poorl y contr olled diabe tic popul ation is 228 - 563 umol/ L with a mean of 396 umol/ L. Perfo rmed At: CB, [facility] n [address] [facility], [place], [address] Tucker huggins, PhD, Phone : [phone] Not Available [address] , [place], [address], 05/02/2025 14:12:36 05/01/20 25 05/01/2025 FRUCT OSAMI NE performing lab see note LC2 - [facility] RP CLIEN T# [id number] [address] [place] [address] Not Available [address] [place], [address], 05/02/2025 14:12:36 05/13/20 25 05/13/2025 GLUCO SE POINT OF CARE note See Note Order ing Provi lissette: Abelino Hyman DO Not Available [address] [place], [address], 05/13/2025 06:52:59 09/08/20 25 05/13/2025 GLUCO SE POINT OF CARE glucose point of care 101 mg/dL 70-99 high Not Available [address] , [place], [address], 05/13/2025 06:52:59 05/13/20 25 05/13/2025 GLUCO SE POINT OF CARE performing lab see note [facility] - [address] [place] [address] Not Available [address] [place], [address], 05/13/2025 06:52:59 05/01/20 25 05/01/2025 XR, chest , 2 view [facility] Medica l Name: VIKRAM CALLAHAN [address] [place] [address] Drive Phys: [place] [address] : 1940 Age: 84 Sex: M Acct: [id number] Loc: DORON PHONE #: Exam Date: 2024 Status : REG CLI FAX #: Rad# [id number] Unit# [id number] Admit Date: 2024 EXAMS: CPT CODE: [id number] CHEST 2 VIEWS 78907 EXAMIN ATION: XR CHEST 2 VIEWS HISTOR Y: PREOP FUNMILAYO 05/13/20 25. COMPAR JVAID: None. FINDIN GS: Two views of the chest demons trate no pneumo nancy consol idatio n, pleura l effusi on, or pneumo thorax . The cardia c and medias tinal contou rs are normal . IMPRES KAREN: No acute cardio pulmon maulik radiog raphic abnorm ality. Electr onical ly signed by: Viktor Guillen MD 2024 04:59 PM EDT RP Workst ation: [id number] Electr onical ly Signed by VIKTOR GUILLEN on 2024 at 1658 Report ed and signed by: Tabitha GUILLEN CC: Abelino Pope md Dictat ed Date/T saji: 2024 (1657) Techno logist : HUMZA Peres RT(R)( CT) Transc ribed Date/T saji: 2024 (165) Transc riptio nist: DR.CAI PATE Electr onic Signat ure Date/T saji: 2024 (1657) Printe d Date/T saji: 2024 (170) BATCH NO: N/A PAGE 1 Signed Report CC'ed Logic: Orderi ng Provid er: YENNI MERCADO Attend ing Provid er: YENNI MERCADO Referr ing Provid er: YENNI MERCADO Consul ting Provid er: NIKO BOYD [email or web address] [address] [place], [address], 05/02/2025 07:27:27 05/13/20 25 05/13/2025 - C-arm < 1 hour [facility] al Medica l Ce Name: VIKRAM CALLAHAN [address] [place] [address] Drive Phys: Dile[place] [address] : 1940 Age: 84 Sex: M Acct: [id number] Loc: VENTURA PHONE #: [phone] Exam Date: 2024 Status : REG [facility] FAX #: [phone] Rad# [id number] Unit# [id number] Admit Date: 2024 EXAMS: CPT CODE: [id number] C-ARM < 1 HOUR [address] PROCED URE: FL LESS THAN 1 HOUR, 05/13/20 25 6:03 AM CDT CLINIC AL INDICA TION: HIP REPLAC EMENT. FINDIN GS/ IMPRES KAREN: Total number of images : 2 Total fluoro scopic time: 47.2 second s Total dose: 8.1 mGy Fluoro scopic suppor t was provid ed intrao perati vely. Please refer to proced ure note for furthe r detail s. Electr onical ly signed by: Marcin walter MD 2024 11:13 AM EDT RP Workst ation: [id number] Electr onical ly Signed by MARCIN WALTER MD on 2024 at 1113 Report ed and signed by: MARCIN GARCIA MD CC: Abelino Hyman DO; Liban Pope md Dictat ed Date/T saji: 2024 (1113) Techno logist : WILLIAM Marks RMaria LuzTMaria Luz (R) Transc ribed Date/T saji: 2024 (1113) Transc riptio nist: DR.IND Canales onic Signat ure Date/T saji: 2024 (1113) Printe d Date/T saji: 2024 (1117) BATCH NO: N/A PAGE 1 Signed Report CC'ed Logic: Orderi ng Provid er: YENNI MERCADO Attend ing Provid er: YENNI MERCADO Referr ing Provid er: YENNI MERCADO Consul ting Provid er: NIKO BOYD [email or web address] [address] , [place], [address], 05/13/2025 11:24:27 05/13/20 25 05/13/2025 - hip 2V left [facility] Medica l Ce Name: VIKRAM CALLAHAN [address] [place], [place] [address] Phys: Manny [place] [address] : 1940 Age: 84 Sex: M Acct: [id number] Loc: VENTURA PHONE #: [phone] Exam Date: 2024 Status : REG [facility] FAX #: [phone] Rad# [id number] Unit# [id number] Admit Date: 2024 EXAMS: CPT CODE: [id number] [place] [address] LEFT HIP 3 VIEWS CLINIC AL HISTOR Y: Postop erativ e evalua tion. FINDIN GS: Fronta l and crosst able latera l views of the left hip are review ed. Hardwa re is identi fied involv ing the acetab ulum in additi on to the proxim al femur, consis tent with left hip arthro plasty . Overal l anatom ic positi on of the left hip appear s satisf actory on the provid ed images . There is no eviden ce of disloc ation on the exam. No acute bony fractu re or suspic ious periha rdware lucenc y is appare nt. Subcut aneous emphys maureen corres ponds with postop erativ e status . IMPRES KAREN: Status post left hip arthro plasty , as descri bed above. Please correl ate findin gs with intrao perati ve report . Electr onical ly signed by: Reina Kramer ms, MD 2024 11:21 AM EDT RP Workst ation: [id number] Electr onical ly Signed by REINA KRAMER MS on 2024 at 1119 Report ed and signed by: TAHIRA COLLIER, REINA Peres CC: Abelino Hyman DO; Liban Pope md Dictat ed Date/T saji: 2024 (1119) Techno logist : HUMZA Peres RT(R)( CT) Transc ribed Date/T saji: 2024 (1119) Transc riptio nist: DR.WIL WASHBURN Electr onic Signat ure Date/T saji: 2024 (1119) Printe d Date/T saji: 2024 (1125) BATCH NO: N/A PAGE 1 Signed Report CC'ed Logic: Orderi ng Provid er: YENNI MERCADO Attend ing Provid er: YENNI MERCADO Referr ing Provid er: YENNI MERCADO Consul ting Provid er: NIKO OBYD [email or web address] [address] [place], [address], 05/13/2025 11:34:09 Result Notes Documentation Provider Name and Address Organization Details Recorded Time Xr, Chest, 2 View : [facility] Ce Name: VIKRAM CALLAHAN [address] [place] [address] Phys: [place] [address] : 1940 Age: 84 Sex: M Acct: [id number] Loc: DORON PHONE #: Exam Date: 05/01/2025 Status: NOAM WANG FAX #: Rad# [id number] Unit# [id number] Admit Date: 05/01/2025 EXAMS: CPT CODE: [id number] CHEST 2 VIEWS 55024 EXAMINATION: XR CHEST 2 VIEWS HISTORY: PREOP FUNMILAYO 05/13/2025. COMPARISON: None. FINDINGS: Two views of the chest demonstrate no pneumonic consolidation, pleural effusion, or pneumothorax. The cardiac and mediastinal contours are normal. IMPRESSION: No acute cardiopulmonary radiographic abnormality. Electronically signed by: Viktor Guillen MD 05/01/2025 04:59 PM EDT RP at 1658 Reported and signed by: VIKTOR GUILLEN CC: Abelino Hyman DO; Liban Pope md Dictated Date/Time: 05/01/2025 (1657) Technologist: HUMZA BELLE RT(R)(CT) Transcribed Date/Time: 05/01/2025 (1657) Margarine Maker: Electronic Signature Date/Time: 05/01/2025 (1657) Printed Date/Time: 05/01/2025 (1702) BATCH NO: N/A PAGE 1 Signed Report CC'ed Logic: Ordering Provider: YENNI MERCADO Attending Provider: YENNI MERCADO Referring Provider: YENNI MERCADO Consulting Provider: [facility] 05/02/2025 07:27:27 Medical Equipment None Reported. Allergies No known drug allergies Medications Name Sig Start Date Stop Date Status Note LastModified by Organization Details LastModified Time amoxicillin 500 mg capsule active Not Available Not Available Not Available atorvastatin 80 mg tablet active Not Available Not Available Not Available hydrocodone 5 mg-acetaminop hen 325 mg tablet active Not Available Not Available Not Available prednisone 20 mg tablet active Not Available Not Available No t Available atenolol 25 mg tablet active Not Available Not Available No t Available amlodipine 2.5 mg tablet active Not Available Not Availabl e Not Available ciprofloxacin 500 mg tablet active Not Available Not Availabl e Not Available omeprazole 40 mg capsule,delay ed release active Not Available Not Available N ot Available potassium chloride ER 8 mEq tablet,extend ed release active Not Available Not Available N ot Available tamsulosin 0.4 mg capsule active Not Available Not Available Not Available Kenalog 10 mg/mL suspension for injection Take 2 mL by injection route. 2024 active Not Available Not Available Not Avai lable furosemide 20 mg tablet active Not Available Not Available No t Available albuterol sulfate HFA 90 mcg/actuation aerosol inhaler active Not Available Not Available Not Available finasteride 5 mg tablet active Not Available Not Available No t Available naproxen 500 mg tablet active Not Available Not Available No t Available bupivacaine (PF) 0.5 % (5 mg/mL) injection solution Take 2 mL by injection route. 2024 active Not Available Not Available Not Avai lable Trelegy Ellipta 200 mcg-62.5 mcg-25 mcg powder for inhalation active Not Available Not Available N ot Available Vitals None Recorded Social History None recorded. Functional Status None recorded. Mental Status None recorded. Family History Nothing Reported. Medical History Condition Response Other Y Immunizations Vaccine Type Date Status Note Provider Nam e and Address Organization Details Recorded Time Influenza, adjuvanted, trivalent, PF 0 completed Not Available [facility] 05/27/2025 14:09:26 Tdap 0 completed Not Available [facility] 05/27/2025 14:09:26 COVID-19 vaccine, vector-nr, rS-Ad26, PF, 0.5 mL 1 completed Not Available [facility] 05/27/2025 14:09:26 COVID-19 vaccine, vector-nr, rS-Ad26, PF, 0.5 mL 1 completed Not Available [facility] 05/27/2025 14:09:26 COVID-19, mRNA, LNP-S, bivalent, PF, 50 mcg/0.5 mL or 25mcg/0.25 mL dose 2 completed Not Available [facility] 05/27/2025 14:09:26 COVID-19, mRNA, LNP-S, PF, kali-sucrose, 30 mcg/0.3 mL 3 completed Not Available [facility] 05/27/2025 14:09:26 RSV, bivalent, protein subunit RSVpreF, diluent reconstituted, 0.5 mL, PF 4 completed Not Available [facility] 05/27/2025 14:09:26 Influenza, split virus, trivalent, PF 4 completed Not Available [facility] 05/27/2025 14:09:26 Pneumococcal conjugate PCV20, polysaccharide THP186 conjugate, adjuvant, PF 4 completed Not Available [facility] 05/27/2025 14:09:26 zoster recombinant 4 completed Not Available [facility] 05/27/2025 14:09:26 zoster recombinant 5 completed Not Available [facility] 05/27/2025 14:09:26 Tdap 5 completed Not Available [facility] 05/27/2025 14:09:26 Past Encounters Encounter ID Performer Location Encounter Start Date Encounter Closed Date Diagnosis/Indication Diagnosis SNOMED-CT Code Diagnosis ICD10 Code Diagnosis IMO Codes Diagnosis Note [id number] DO MICKIE CALVILLO [address] [address] 04/26/2025 08:26:56 04/26/2025 10:32:48 Primary gonarthrosis, bilateral 690001149 M17.0 3481386 Bilateral arthritis of hip 4709039291 740899 M16.0 [id number] DO MICKIE CALVILLO [place] [address] [address] 05/27/2025 14:04:15 05/27/2025 15:05:57 Follow-up orthopedic assessment [id number] Z47.89 [id number] Health Concerns Section Related Observation LastModified by Organization Detai ls LastModified Time None Recorded Concern Status LastModified by Organization Details LastModified Time None Recorded Advance Directives Directive None Recorded Payers Insurance Date Sequence Insurance Name Policy Number Policy Camargo Covered Member ID Camargo Member ID Guarantor Name 06/03/2025 1 [facility] (MEDICARE REPLACEMENT/A DVANTAGE - HMO) Vikram Callahan [id number] Vikram Callahan Notes Date Note Type Note Provider Name and Address Organization Details Recorded Time 04/26/2025 text/html This active 84 year old male patient presents in the office today for BILATERAL hip pain and BILATERAL knee pain. He walks with a walker but is stil very active outdoors and lives alone. He only takes two routine medications and does not have diabetes. He states that his arthritis is causing him issues with his ADLs. He reports his hip pain is usually to the lateral hips but recently has caused him groin pain. His knees are causing him the most pain now. He had injections years ago when he was working but after he retired the pain resolved until now. X-rays in the office today. [id number] ABELINO HYMAN DO [address], [place], [address], [facility] 04/30/2025 16:06:10 05/27/2025 text/html ROS as noted in the HPI Pt is here for 2 week post op DOS 9.8.25 Left anterior total hip arthroplasty. His incision is w/o s/s of infection. He does have bruising down into the lower leg and inner thigh. He is doing well. [id number] ABELINO HYMAN DO [address], [place], [address], [facility] 05/28/2025 06:51:49
--- OUTSIDE RECORDS SUMMARY | 2025-06-15 10:49 | XMS_ITS | Continuity of Care Document ---
Author Organization [place]UAN CARL[place] - [place] - [facility] Address [address] [place] [address] [place] [address] Care Team Providers Care Family Law Attorney Name Role Phone LIBAN POPE Primary Care Provider [phone] Assessment No assessment recorded. Plan of Treatment Reminders Order Date Submit Date Provider Last Modified By Organization Details Last Modified Time Details Appointments ORT EST 15 025 10:15AM ABELINO HYMAN, DO Not available Not available Not available Lab None record ed. Referral None record ed. Procedures None record ed. Surgeries None record ed. Imaging None record ed. Medication Orders None record ed. Patient TargetsNo targets recorded. Patient InstructionsNo instructions recorded. Reason for Referral None Reported. Results Created Date Observation Date Name Description Value Unit Range Abnormal Flag Note LastModifiedBy Organization Detail LastModifiedTime 05/01/20 25 05/01/2025 CBC W/O DIFF note See Note Order ing Provi lissette: Abelino Hyman DO Not Available [place] [address] [place], [address], 05/01/2025 11:16:33 05/01/20 25 05/01/2025 CBC W/O DIFF white blood cell 10.7 10e3/ uL 4.5-13 .0 normal Not Available [place] [address] [place], [address], 05/01/2025 11:16:33 05/01/20 25 05/01/2025 CBC W/O DIFF red blood cell 4.77 10e6/ uL 4.10-5 .70 normal Not Available [address] [place], [address], 05/01/2025 11:16:33 05/01/2005/01/2025 CBC W/O DIFF hemoglobin 14.1 g/dL 12.0-1 6.9 normal Not Available [place] [address], [place], [address], 05/01/2025 11:16:33 05/01/20 25 05/01/2025 CBC W/O DIFF hematocrit 42.5 % 36.0-4 9.0 normal Not Available [place] [address], [place], [address], 05/01/2025 11:16:33 05/01/2005/01/2025 CBC W/O DIFF mean cell volume 89 fL 78.0-9 8.0 normal Not Available [place] [address], [place], [address], 05/01/2025 11:16:33 05/01/20 25 05/01/2025 CBC W/O DIFF mean cell HGB 29.6 pg 25.0-3 5.0 normal Not Available [place] [address], [place], [address], 05/01/2025 11:16:33 05/01/20 25 05/01/2025 CBC W/O DIFF mean cell HGB concentratio n 33.2 g/dL 31.0-3 6.0 normal Not Available [place] [address], [place], [address], 05/01/2025 11:16:33 05/01/20 25 05/01/2025 CBC W/O DIFF red cell distribution width 13.3 % 11.0-1 5.0 normal Not Available [place] [address], [place], [address], 05/01/2025 11:16:33 05/01/20 25 05/01/2025 CBC W/O DIFF platelet count 291 10e3/ uL 150-40 0 normal Not Available [address] , [place], [address], 05/01/2025 11:16:33 05/01/20 25 05/01/2025 CBC W/O DIFF performing lab see note ML - [facility] [address] [employer] [facility] [place] [address] Not Available [address] , [place], [address], 05/01/2025 11:16:33 05/01/20 25 05/01/2025 GLYCO HEMOG LOBIN (HGB A1C) note See Note Order ing Provi lissette: Abelino Brennan Yenni DO Not Available [address] , [place], [address], 05/01/2025 11:53:54 05/01/20 25 05/01/2025 GLYCO HEMOG LOBIN (HGB A1C) glycohemoglo bin (HGB A1C) 5.6 % 4.5-6. 2 normal Predi abete s: 5.7 - 6.4 Diabe bruce: >6.4 Glyce rafiq contr ol for adult s with diabe bruce: <7.0 Not Available [address] [place], [place], [address], 05/01/2025 11:53:54 05/01/20 25 05/01/2025 GLYCO HEMOG LOBIN (HGB A1C) performing lab see note ML - [facility] [address] [employer] [facility] [place] [address] Not Available [address] , [place], [address], 05/01/2025 11:53:54 05/01/20 25 05/01/2025 ELECT ROLYT ES PANEL note See Note Order ing Provi lissette: Abelino Hyman DO Not Available [address] [place], [place], [address], 05/01/2025 12:07:16 05/01/20 25 05/01/2025 ELECT ROLYT ES PANEL sodium 140 mmol/ L 136-14 5 normal Not Available [address] [place], [place], [address], 05/01/2025 12:07:16 05/01/20 25 05/01/2025 ELECT ROLYT ES PANEL potassium 4.2 mmol/ L 3.5-5. 1 normal Not Available [address] [place], [place], [address], 05/01/2025 12:07:16 05/01/20 25 05/01/2025 ELECT ROLYT ES PANEL chloride 103 mmol/ L 98-107 normal Not Available [address] [place], [place], [address], 05/01/2025 12:07:16 05/01/20 25 05/01/2025 ELECT ROLYT ES PANEL carbon dioxide 27 mmol/ L 24-33 normal Not Available [address] [place], [place], [address], 05/01/2025 12:07:16 05/01/20 25 05/01/2025 ELECT ROLYT ES PANEL anion gap 14.2 mmol/ L 10-20 normal Not Available [address] [place], [place], [address], 05/01/2025 12:07:16 05/01/20 25 05/01/2025 ELECT ROLYT ES PANEL performing lab see note ML - [facility] R [address] [facility] [address] Not Available [address] [place], [place], [address], 05/01/2025 12:07:16 05/01/20 25 05/01/2025 BLOOD UREA NITRO GEN note See Note Order ing Provi lissette: Abelino H Yenni DO Not Available [address] , [place], [address], 05/01/2025 12:07:16 05/01/20 25 05/01/2025 BLOOD UREA NITRO GEN blood urea nitrogen 37 mg/dL 7-18 high Not Available [address] , [place], [address], 05/01/2025 12:07:16 05/01/20 25 05/01/2025 BLOOD UREA NITRO GEN performing lab see note ML [facility] [address] [facility] [address] Not Available [address] , [place], [address], 05/01/2025 12:07:16 05/01/20 25 05/01/2025 CREAT ININE W/GFR note See Note Order ing Provi lissette: Abelino H Yenni DO Not Available [address] , [place], [address], 05/01/2025 12:07:17 05/01/20 25 05/01/2025 CREAT ININE W/GFR creatinine 1.00 mg/dL 0.70-1 .30 normal Not Available [address] , [place], [address], 05/01/2025 12:07:17 05/01/20 25 05/01/2025 CREAT ININE W/GFR GFR (estimated) 74 mL/mi n >60 normal [IM HODA NT]: The 2020 CKD-E PI equat ion is now the recom rajesh d stand rosalie. This versi on does not inclu de race, as do the 2008 and 2011 CKD-E PI creat inine and creat inine -cyst atin C equat ions. Pleas e note that the eGFR now repor [...] CKD-E PI calcu lator is easil y searc hable on the inter net. Calcu lated [...] care of your patie nt. Not Available [address] [place], [address], 05/01/2025 12:07:17 05/01/20 25 05/01/2025 CREAT ININE W/GFR performing lab see note ML [facility] [address] [facility] [address] Not Available [address] [place], [address], 05/01/2025 12:07:17 05/01/2005/01/2025 FRUCT OSAMI NE note See Note Order ing Provi lissette: Abelino Hyman DO Not Available [address], [place], [address], 05/02/2025 14:12:36 05/01/20 25 05/01/2025 FRUCT OSAMI [...] L. Perfo rmed At: CB, [facility] [place] [facility] [address] [facility], [place], [address] [address] opal huggins, PhD, Phone : [phone] Not Available [address] , [place], [address], 05/02/2025 14:12:36 05/01/20 25 05/01/2025 FRUCT OSAMI NE performing lab see note LC2 - LAB[facility] RP CLIEN T# [id number] [place] [address] Not Available [address] , [place], [address], 05/02/2025 14:12:36 05/13/20 25 05/13/2025 GLUCO SE POINT OF CARE note See Note Order ing Provi lissette: Abelino Hyman DO Not Available [address] [place], [address], 05/13/2025 06:52:59 05/13/20 25 05/13/2025 GLUCO SE POINT OF CARE glucose point of care 101 mg/dL 70-99 high Not Available [address] [place], [address], 05/13/2025 06:52:59 05/13/20 25 05/13/2025 GLUCO SE POINT OF CARE performing lab see note MWPO - [address] [place] [address] Not Available [facility] [address] [facility] [place], [address], 05/13/2025 06:52:59 05/01/20 25 05/01/2025 XR, chest , 2 view [facility] Name: VIKRAM CALLAHAN [address] Phys: Yenni ,Dileep Brennan [place], [place] [address] : 1940 Age: 84 Sex: M Acct: [id number] Loc: DORON PHONE #: Exam Date: 2024 Status : REG CLI FAX #: [phone] Rad# [id number] Unit# [id number] Admit Date: 2024 EXAMS: CPT CODE: [id number] CHEST 2 VIEWS 73780 EXAMIN ATION: XR CHEST 2 VIEWS HISTOR Y: PREOP FUNMILAYO 05/13/20 25. COMPAR JAVID: None. FINDIN GS: Two views of the [...] and signed by: Tabitha GUILLEN CC: Abelino Hyman DO; Liban Pope md Dictat ed Date/T saji: 2024 (1657) Techno logist : HUMZA Peres RT(R)( CT) Transc ribed Date/T saji: 2024 (1657) Transc riptio nist: DR.CAI PATE Electr onic Signat ure Date/T saji: 2024 (1657) Printe d Date/T saji: 2024 (1701) BATCH NO: N/A PAGE 1 Signed Report CC'ed Logic: Orderi ng Provid er: YENNI MERCADO Attend ing Provid er: YENNI MERCADO Referr ing Provid er: YENNI MERCADO Consul ting Provid er: NIKO BOYD [email or web address] [facility] [address] [facility] , [place], [address], 05/02/2025 07:27:27 05/13/20 25 05/13/2025 - C-arm < 1 hour [facility] Med[facility] Ce Name: VIKRAM CALLAHAN [facility] [address] Phys: Dile[place] [address] : 1940 Age: 84 Sex: M Acct: [id number] Loc: VENTURA PHONE #: Exam Date: 2024 Status : REG SDC FAX #: Rad# [id number] Unit# [id number] Admit Date: 2024 EXAMS: CPT CODE: [id number] C-ARM < 1 HOUR 08684 PROCED URE: FL LESS THAN 1 HOUR, 05/13/20 6:03 AM CDT CLINIC AL INDICA TION: [...] Pope md Dictat ed Date/T saji: 2024 (8023) Techno logist : WILLIAM REINOSO S, R.T. (R) Transc ribed Date/T saji: 2024 (1113) Transc riptio nist: DR.IND Canales onic Signat ure Date/T saji: 2024 (1113) Printe d Date/T saji: 2024 (1117) BATCH NO: N/A PAGE 1 Signed Report CC'ed Logic: Orderi ng Provid er: YENNI MERCADO Attend ing Provid er: YENNI MERCADO Referr ing Provid er: YENNI MERCADO Consul ting Provid er: NIKO BOYD [email or web address] , [place], [address], 05/13/2025 11:24:27 05/13/20 25 05/13/2025 - hip 2V left [facility] Name: VIKRAM CALLAHAN [facility] [address] Phys: [place] [address] : 1940 Age: 84 Sex: M Acct: [id number] Loc: VENTURA PHONE #: [phone] Exam Date: 2024 Status : REG [facility] FAX #: [phone] Rad# [id number] Unit# [id number] Admit Date: 2024 EXAMS: CPT CODE: [id number] [place] [address] LEFT HIP 3 VIEWS CLINIC AL HISTOR [...] MERCADO Consul ting Provid er: NIKO BOYD [address] , [place], [address], 05/13/2025 11:34:09 Result Notes None recorded. Medical Equipment None Reported. Allergies No known [...] adjuvanted, trivalent, PF 0 completed Not Available [facility] 05/27/2025 14:09:26 Tdap 0 completed Not Available [facility] 05/27/2025 14:09:26 COVID-19 vaccine, vector-nr, rS-Ad26, PF, 0.5 mL 1 completed Not Available [facility] 05/27/2025 14:09:26 COVID-19 vaccine, vector-nr, rS-Ad26, PF, 0.5 mL 1 completed Not Available [facility] 05/27/2025 14:09:26 COVID-19, mRNA, LNP-S, bivalent, PF, 50 mcg/0.5 mL or 25mcg/0.25 mL dose 2 completed Not Available [facility] 05/27/2025 14:09:26 COVID-19, mRNA, LNP-S, PF, kali-sucrose, 30 mcg/0.3 mL 3 completed Not Available [facility] 05/27/2025 14:09:26 RSV, bivalent, protein subunit RSVpreF, diluent reconstituted, 0.5 mL, PF 4 completed Not Available [facility] 05/27/2025 14:09:26 Influenza, split virus, trivalent, PF 4 completed Not Available [facility] 05/27/2025 14:09:26 Pneumococcal conjugate PCV20, polysaccharide [id number] conjugate, adjuvant, PF 4 completed Not Available [facility] 05/27/2025 14:09:26 zoster recombinant 4 completed Not Available [facility] 05/27/2025 14:09:26 zoster recombinant 5 completed Not Available [facility] 05/27/2025 14:09:26 Tdap 5 completed Not Available [facility] 05/27/2025 14:09:26 Past Encounters Encounter ID Performer Location Encounter Start Date Encounter Closed Date Diagnosis/Indication Diagnosis SNOMED-CT Code Diagnosis ICD10 Code Diagnosis IMO Codes Diagnosis Note [id number] DO MICKIE CALVILLO [place] [id number] 04/26/2025 08:26:56 04/26/2025 10:32:48 Primary gonarthrosis, bilateral 114739922 M17.0 0328458 Bilateral arthritis of hip 9264246935 228583 M16.0 [id number] [place] [address] 05/27/2025 14:04:15 05/27/2025 15:05:57 Follow-up orthopedic assessment 806621175 Z47.89 [id number] Health Concerns Section Related Observation LastModified by Organization Detai ls LastModified Time None Recorded Concern Status LastModified by Organization Details LastModified Time None Recorded Payers Encounter Date Sequence Insurance Name Policy Number Policy Camargo Covered Member ID Camargo Member ID Guarantor Name 05/27/2025 1 [facility] (MEDICARE REPLACEMENT/A DVANTAGE - HMO) Vikram Callahan [id number] Vikram Callahan Notes Date Note Type Note Provider Name and Address Organization Details Recorded Time 05/27/2025 text/html ROS as noted in the HPI Pt is here for 2 week post op DOS 9.8.25 Left anterior total hip arthroplasty. His incision is w/o s/s of infection. He does have bruising down into the lower leg and inner thigh. He is doing well. [id number] ABELINO YENNI, [address], [place], [address], [facility] - [facility] - [place] [facility] [place] 05/28/2025 06:51:49
--- OUTSIDE RECORDS SUMMARY | 2025-06-15 10:49 | XMS_ITS | Continuity of Care Document ---
Author Organization [place] - [facility] - [facility] Address [address] [facility] [place] [address] Care Team Providers Care Metal Punch Press Operator Name Role Phone LIBAN POPE Primary Care [...] 10 mg/mL suspensio n for injection [address], [address] [place] [address], [facility], [place], [address], 04/29/2025 17:01:45 bupivacai ne (PF) 0.5 % (5 mg/mL) injection solution [address] [place] [address], [address] [place] [address], [facility], [place], [address], 04/29/2025 17:01:45 Patient TargetsNo targets recorded. Patient InstructionsNo instructions recorded. Reason for Referral None Reported. Results Created Date Observation Date Name Description Value Unit Range Abnormal Flag Note LastModifiedBy Organization Detail LastModifiedTime 05/01/2005/01/2025 XR, chest , 2 view [facility] Name: VIKRAM CALLAHAN [address] [employer] Phys: Dileep Hyman DO [facility] [address] : 1940 Age: 84 Sex: M Acct: [id number] Loc: DORON PHONE #: Exam Date: 2024 Status : REG CLNarciso FAX #: Rad# [id number] Unit# [id number] Admit Date: 2024 EXAMS: CPT CODE: [id number] 888 CHEST 2 VIEWS 60271 EXAMIN ATION: XR CHEST 2 VIEWS HISTOR [...] Electr onic Signat ure Date/T saji: 2024 (165) Printe d Date/T saji: 2024 (1701) BATCH NO: N/A PAGE 1 Signed Report CC'ed Logic: Orderi ng Provid er: YENNI MERCADO Attend ing Provid er: YENNI MERCADO Referr ing Provid er: YENNI MERCADO Consul ting Provid er: NIKO BOYD [email or web address] , [place], [address], 05/02/2025 07:27:27 05/13/20 25 05/13/2025 - C-arm < 1 hour [facility] Name: VIKRAM CALLAHAN [address] [employer] Phys: Manny Hyman DO, [place] [address] : 1940 Age: 84 Sex: M Acct: [id number] Loc: VENTURA PHONE #: [phone] Exam Date: 2024 Status : REG SDC FAX #: Rad# [id number] Unit# [id number] Admit Date: 2024 EXAMS: CPT CODE: [id number] 155 C-ARM < 1 HOUR [address] PROCED URE: FL LESS THAN 1 HOUR, [...] saji: 2024 (1113) Techno logist : WILLIAM REINOSO S, R.T. (R) Transc ribed Date/T saji: 2024 (1113) Transc riptio nist: DR.IND SPIVEY Electr onic Signat ure Date/T saji: 2024 (1113) Printe d Date/T saji: 2024 (1117) BATCH NO: N/A PAGE 1 Signed Report CC'ed Logic: Orderi ng Provid er: YENNI MERCADO Attend ing Provid er: YENNI MERCADO Referr ing Provid er: YENNI MERCADO Consul ting Provid er: NIKO BOYD [email or web address] [facility] [address] [facility] , [place], [address], 05/13/2025 11:24:27 05/13/20 25 05/13/2025 - hip 2V left [facility] Ce Name: VIKRAM CALLAHAN [facility] [address] Phys: Dileep Hyman DO minh Brennan Jakygabriel [facility] [place] [address] : 1940 Age: 84 Sex: M Acct: [id number] Loc: VENTURA PHONE #: Exam Date: 2024 Status : REG [facility] FAX #: Rad# [id number] Unit# [id number] Admit Date: 2024 EXAMS: CPT CODE: [id number] 181 [place] [address] LEFT HIP 3 VIEWS CLINIC AL HISTOR [...] saji: 2024 (1119) Techno logist : HUMZA CRUZ N RT(R)( CT) Transc ribed Date/T saji: 2024 (1119) Transc riptio nist: DR.WIL WU Garcia onic Signat ure Date/T saji: 2024 (1119) Printe d Date/T saji: 2024 (1125) BATCH NO: N/A PAGE 1 Signed Report CC'ed Logic: Orderi ng Provid er: YENNI MERCADO Attend ing Provid er: YENNI MERCADO Referr ing Provid er: YENNI MERCADO Consul ting Provid er: NIKO BOYD [email or web address] , [place], [address], 05/13/2025 11:34:09 Result Notes None recorded. Medical [...] active Not Available Not Available Not Avai dirk Mast Ellipta 200 mcg-62.5 mcg-25 mcg powder for [...] adjuvanted, trivalent, PF 0 completed Not Available [facility] 05/27/2025 14:09:26 Tdap 0 completed Not Available [facility] 05/27/2025 14:09:26 COVID-19 vaccine, vector-nr, rS-Ad26, PF, 0.5 mL 1 completed Not Available [facility] 05/27/2025 14:09:26 COVID-19 vaccine, vector-nr, rS-Ad26, PF, 0.5 mL 1 completed Not Available [facility] 05/27/2025 14:09:26 COVID-19, mRNA, LNP-S, bivalent, PF, 50 mcg/0.5 mL or 25mcg/0.25 mL dose 2 completed Not Available [facility] 05/27/2025 14:09:26 COVID-19, mRNA, LNP-S, PF, kali-sucrose, 30 mcg/0.3 mL 3 completed Not Available [facility] 05/27/2025 14:09:26 RSV, bivalent, protein subunit RSVpreF, diluent reconstituted, 0.5 mL, PF 4 completed Not Available [facility] 05/27/2025 14:09:26 Influenza, split virus, trivalent, PF 4 completed Not Available [facility] 05/27/2025 14:09:26 Pneumococcal conjugate PCV20, polysaccharide [id number] conjugate, adjuvant, PF 4 completed Not Available [facility] 05/27/2025 14:09:26 zoster recombinant 4 completed Not Available [facility] 05/27/2025 14:09:26 zoster recombinant 5 completed Not Available [facility] 05/27/2025 14:09:26 Tdap completed Not Available [facility] 05/27/2025 14:09:26 Past Encounters Encounter ID Performer Location Encounter Start Date Encounter Closed Date Diagnosis/Indication Diagnosis SNOMED-CT Code Diagnosis ICD10 Code Diagnosis IMO Codes Diagnosis Note [id number] ABELINO HYMAN DO [facility] [address] [place] [address] 04/26/2025 08:26:56 04/26/2025 10:32:48 Primary gonarthrosis, bilateral 320439400 M17.0 1055280 Bilateral arthritis of hip [id number] 248547 M16.0 [id number] Health Concerns Section Related Observation LastModified by Organization Detai ls LastModified Time None Recorded Concern Status LastModified by Organization Details LastModified Time None Recorded Payers Encounter Date Sequence Insurance Name Policy Number Policy Camargo Covered Member ID Camargo Member ID Guarantor Name 04/26/2025 1 [facility] (MEDICARE REPLACEMENT/A DVANTAGE - HMO) Vikram Callahan [id number] Vikram Callahan Notes Date Note Type Note [...] office today. CHE6 ABELINO HYMAN DO [address], [place], [address], [place] - [facility] - [place] 04/30/2025 16:06:10
--- NOTE | 2025-06-15 10:52 | PC.NURSE ---
patient yassine back to room 6 he states i dont want to be seen i just need a nurse to check my bp at home it was 116/59 and he didnt know if that was low patient bp on arrival 148/67 heart rate 63 98% room air. patient states he would rather leave he feels fine and doesnt need seen
[2025-06-15 10:55] VITALS: BP 148/67; PULSE 63; RESP 15; TEMP 36.9; O2SAT 98
--- OUTSIDE RECORDS SUMMARY | 2025-07-11 20:00 | XMS_ITS | Clinical Summary ---
Author Organization Unknown Care Team Providers Care Mucker [place] Name Role Phone YENNI DO, JESS Unavailable Unavailable FEDERICO PT, JOYCE Unavailable Unavailable SHERRI TECHNICAL WRITER AND EDITOR, CAIO Unavailable Unavailable Payers Payer Name Policy Type Policy Number Effective Date Expira tion Date [facility].H[facility]RL[facility] [id number] ADMISSIONS.CODEREQUEST.[facility].A [facility] [id number] Problems Condition Name Condition Details Condition Category Status Onset Date Resolution Date Last Treatment Date Treating Clinician Comments AFTERCARE FOLLOWING JOINT REPLACEMENT SURGERY Active 05-13 00:00: 00 PRESENCE OF LEFT ARTIFICIAL HIP JOINT Active 05-13 00:00: 00 POLYOSTEOART HRITIS, UNSPECIFIED Active 09-05 00:00: 00 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 Ordering Clinician Indication Dosage Frequency Signature (SIG) Comments Components finasteride 5 mg tablet - 00:00: 00 Yes [id number] PROSTATE 1 tablet DAILY 1 tablet DAILY (route: oral) Med Classific ation: Genitouri nary Therapy amlodipine 2.5 mg tablet 05-14 00:00: 00 Yes [id number] BLOOD PRESSURE 1 tablet DAILY 1 tablet DAILY (route: oral) Med Classific ation: Cardiovas cular Therapy Agents atenolol 25 mg tablet 05-14 00:00: 00 Yes [id number] BLOOD PRESSURE 1 tablet DAILY 1 tablet DAILY (route: oral) Med Classific ation: Cardiovas cular Therapy Agents atorvastati n 80 mg tablet 05-15 00:00: 00 Yes [id number] CHOLESTEROL 1 tablet BEDTIME 1 tablet BEDTIME (route: oral) Med Classific ation: Cardiovas cular Therapy Agents furosemide 20 mg tablet 05-14 00:00: 00 Yes [id number] EDEMA 11 tablet DAILY 11 tablet DAILY (route: oral) Med Classific ation: Cardiovas cular Therapy Agents hydrocodone 5 mg-acetamin ophen 325 mg tablet 05-14 00:00: 00 Yes [id number] PAIN 1 tablet EVERY 6 HOURS 1 tablet EVERY 6 HOURS (route: oral) Med Classific ation: Analgesic , Anti-infl ammatory or Antipyret ic omeprazole 40 mg capsule,del ayed release 05-14 00:00: 00 Yes [id number] GERD 1 capsule DAILY 1 capsule DAILY (route: oral) Med Classific ation: Gastroint estinal Therapy Agents potassium chloride ER 8 mEq tablet,exte nded release 05-14 00:00: 00 Yes [id number] SUPPLEMENTA L 1 tablet DAILY 1 tablet DAILY (route: oral) Med Classific ation: Electroly te Balance-N utritiona l Products prednisone 20 mg tablet 05-14 00:00: 00 Yes [id number] BREATHING 1 tablet DAILY 1 tablet DAILY (route: oral) Med Classific ation: Endocrine tamsulosin 0.4 mg capsule 05-14 00:00: 00 Yes [id number] PROSTATE 1 capsule DAILY 1 capsule DAILY (route: oral) Med Classific ation: Genitouri nary Therapy Trelegy Ellipta 200 mcg-62.5 mcg-25 mcg powder for inhalation 05-14 00:00: 00 Yes [id number] BREATHING 1 inhalat ion DAILY 1 inhalation DAILY (route: inhalation ) Med Classific ation: Respirato ry Therapy Agents levofloxaci n 750 mg tablet 05-31 00:00: 00 06-04 23:59 :00 No [id number] ANTIBIOTICS 1 tablet DAILY 1 tablet DAILY (route: oral) Med Classific ation: Anti-Infe ctive Agents Vital Signs Vital Name Observation Time Observation Value Commen ts Temperature 2025-06-11 09:38:00.000 97.6 [degF] Temperature 2025-06-06 16:10:00.000 98.6 [degF] Temperature 2025-06-04 16:24:00.000 97.6 [degF] Temperature 2025-05-31 16:32:00.000 98 [degF] Temperature 2025-05-24 10:40:00.000 97.6 [degF] Temperature 2025-05-22 10:47:00.000 98.6 [degF] Temperature 2025-05-20 11:11:00.000 97.6 [degF] Temperature 2025-05-17 15:54:00.000 98.2 [degF] Temperature 2025-05-14 12:44:00.000 97.6 [degF] BMI (%) 2025-05-14 12:41:49.000 25 kg/m2 Height 2025-05-14 12:41:35.000 68 [in_us] Pulse 2025-06-11 09:38:00.000 60 /min Pulse 2025-06-06 16:10:00.000 72 /min Pulse 2025-06-04 16:24:00.000 78 /min Pulse 2025-05-31 16:32:00.000 67 /min Pulse 2025-05-24 10:40:00.000 65 /min Pulse 2025-05-22 10:47:00.000 70 /min Pulse 2025-05-20 11:11:00.000 69 /min Pulse 2025-05-17 15:54:00.000 74 /min Pulse 2025-05-14 12:44:00.000 64 /min O2 Saturation (%) 2025-05-17 15:54:00.000 96 % O2 Saturation (%) 2025-05-14 12:44:00.000 93 % Respirations 2025-06-11 09:38:00.000 18 /min Respirations 2025-06-06 16:10:00.000 18 /min Respirations 2025-06-04 16:24:00.000 18 /min Respirations 2025-05-31 16:32:00.000 18 /min Respirations 2025-05-24 10:40:00.000 18 /min Respirations 2025-05-22 10:47:00.000 18 /min Respirations 2025-05-20 11:11:00.000 18 /min Respirations 2025-05-17 15:54:00.000 18 /min Respirations 2025-05-14 12:44:00.000 18 /min Weight (lbs) 2025-05-14 12:41:49.000 165 [lb_av] Systolic Blood Pressure 2025-06-11 09:38:00.000 138 mm [Hg] Systolic Blood Pressure 2025-06-06 16:10:00.000 131 mm [Hg] Systolic Blood Pressure 2025-06-04 16:24:00.000 137 mm [Hg] Systolic Blood Pressure 2025-05-31 16:32:00.000 128 mm [Hg] Systolic Blood Pressure 2025-05-24 10:40:00.000 131 mm [Hg] Systolic Blood Pressure 2025-05-22 10:47:00.000 126 mm [Hg] Systolic Blood Pressure 2025-05-20 11:11:00.000 135 mm [Hg] Systolic Blood Pressure 2025-05-17 15:54:00.000 145 mm [Hg] Systolic Blood Pressure 2025-05-14 12:44:00.000 124 mm [Hg] Diastolic Blood Pressure 2025-06-11 09:38:00.000 70 mm [Hg] Diastolic Blood Pressure 2025-06-06 16:10:00.000 69 mm [Hg] Diastolic Blood Pressure 2025-06-04 16:24:00.000 72 mm [Hg] Diastolic Blood Pressure 2025-05-31 16:32:00.000 78 mm [Hg] Diastolic Blood Pressure 2025-05-24 10:40:00.000 60 mm [Hg] Diastolic Blood Pressure 2025-05-22 10:47:00.000 65 mm [Hg] Diastolic Blood Pressure 2025-05-20 11:11:00.000 63 mm [Hg] Diastolic Blood Pressure 2025-05-17 15:54:00.000 88 mm [Hg] Diastolic Blood Pressure 2025-05-14 12:44:00.000 64 mm [Hg] Plan of Treatment Planned Activity Planned Date Details Comments Future Scheduled Test AGENCY MAY PERFORM A RESUMPTION OF CARE VISIT FOLLOWING ANY HOSPITAL ADMISSION. PT TO EVALUATE, OBSERVE / ASSESS, AND MONITOR, TECHNICAL WRITER AND EDITOR TO OBSERVE AND MONITOR, PROVIDE SKILLED THERAPEUTIC INTERVENTION, ACTIVITY, EDUCATION, AND TRAINING TO ADDRESS; [code = AGENCY MAY PERFORM A RESUMPTION OF CARE VISIT FOLLOWING ANY HOSPITAL ADMISSION. PT TO EVALUATE, OBSERVE / ASSESS, AND MONITOR, TECHNICAL WRITER AND EDITOR TO OBSERVE AND MONITOR, PROVIDE SKILLED THERAPEUTIC INTERVENTION, ACTIVITY, EDUCATION, AND TRAINING TO ADDRESS;] Future Scheduled Test SIT TO/FRO M STAND TRANSFERS (PT/TECHNICAL WRITER AND EDITOR) [code = SIT TO/FROM STAND TRANSFERS (PT/TECHNICAL WRITER AND EDITOR)] Future Scheduled Test PT/TECHNICAL WRITER AND EDITOR TO PROVIDE GAIT TRAINING FOR IMPROVED MOBILITY AND /OR TO NORMALIZE GAIT PATTERN [code = PT/TECHNICAL WRITER AND EDITOR TO PROVIDE GAIT TRAINING FOR IMPROVED MOBILITY AND /OR TO NORMALIZE GAIT PATTERN] Future Scheduled Test NEUROMUSCU LAR RE-EDUCATION / BALANCE / POSTURAL CONTROL (PT) [code = NEUROMUSCULAR RE-EDUCATION / BALANCE / POSTURAL CONTROL (PT)] Future Scheduled Test THERAPEUTI C EXERCISES AND ESTABLISHING A HOME EXERCISE PROGRAM (PT/TECHNICAL WRITER AND EDITOR) [code = THERAPEUTIC EXERCISES AND ESTABLISHING A HOME EXERCISE PROGRAM (PT/TECHNICAL WRITER AND EDITOR)] Future Scheduled Test PT/TECHNICAL WRITER AND EDITOR TO IDENTIFY FALL RISK FACTORS; EDUCATE THE PATIENT/CAREGIVER ON WAYS TO REDUCE FALL RISK FACTORS AND ESTABLISH HOME EXERCISE PROGRAM TO MINIMIZE FALL RISK. MAY TEACH THE PATIENT FLOOR RECOVERY WHEN CLINICALLY APPROPRIATE [code = PT/TECHNICAL WRITER AND EDITOR TO IDENTIFY FALL RISK FACTORS; EDUCATE THE PATIENT/CAREGIVER ON WAYS TO REDUCE FALL RISK FACTORS AND ESTABLISH HOME EXERCISE PROGRAM TO MINIMIZE FALL RISK. MAY TEACH THE PATIENT FLOOR RECOVERY WHEN CLINICALLY APPROPRIATE] Future Scheduled Test PT / TECHNICAL WRITER AND EDITOR T O INSTRUCT PATIENT/CAREGIVER ON RISK FOR HOSPITALIZATION/EMERGENCY ROOM VISITS, TEACH SIGNS AND SYMPTOMS THAT PUT PATIENT AT RISK, WHEN TO NOTIFY NURSE/PHYSICIAN OF COMPLICATIONS/DECLINE, AND WHEN TO CALL 911. [code = PT / TECHNICAL WRITER AND EDITOR TO INSTRUCT PATIENT/CAREGIVER ON RISK FOR HOSPITALIZATION/EMERGENCY ROOM VISITS, TEACH SIGNS AND SYMPTOMS THAT PUT PATIENT AT RISK, WHEN TO NOTIFY NURSE/PHYSICIAN OF COMPLICATIONS/DECLINE, AND WHEN TO CALL 911.] Future Scheduled Test PT / TECHNICAL WRITER AND EDITOR T O MONITOR AND EDUCATE ON OXYGEN SATURATION DURING ADLS/IADLS, NOTIFY PHYSICIAN AND/OR THE RN CLINICAL TOOL DESIGN CHECKER FOR PHYSICIAN NOTIFICATION AND IF O2 SATS BELOW PHYSICIAN ORDERED PARAMETERS AFTER 10 MIN OF REST [code = PT / TECHNICAL WRITER AND EDITOR TO MONITOR AND EDUCATE ON OXYGEN SATURATION DURING ADLS/IADLS, NOTIFY PHYSICIAN AND/OR THE RN CLINICAL TOOL DESIGN CHECKER FOR PHYSICIAN NOTIFICATION AND IF O2 SATS BELOW PHYSICIAN ORDERED PARAMETERS AFTER 10 MIN OF REST] Goal Patient Goal - I NDEPENDENCE WITH FUNCTIONAL ACTIVITIES Goal Provider Goal - Goal Provider Goal - PT LTG: PATIENT WILL DEMONSTRATE IMPROVED ABILITY TO PERFORM SIT TO/FROM STAND TRANSFERS TO REDUCE THE RISK OF SKIN BREAKDOWN AND REDUCE FALL RISK FROM MIN TO IND WITHIN 8 WEEKS Goal Provider Goal - PT STG: PATIENT WILL DEMONSTRATE IMPROVED 6 MINUTE WALK TEST AMBULATION FROM 75 FT CGA TO 150 FT SBA WITH APPROPRIATE AD WITHIN 4 WEEKS. PT LTG: PATIENT WILL DEMONSTRATE IMPROVED 6 MINUTE WALK TEST AMBULATION FROM 75 FT CGA TO 300 FT IND WITH APPROPRIATE AD WITHIN 8 WEEKS. Goal Provider Goal - PT LTG: PATIENT WILL DEMONSTRATE REDUCED FALL RISK EVIDENCED BY TUG TEST (CUT SCORE >11 SECONDS INDICATES INCREASED FALL RISK) IMPROVING FROM UNABLE TO LESS THAN OR EQUAL TO 11 SECONDS WITHIN 8 WEEKS Goal Provider Goal - PT LTG: PATIENT WILL DEMONSTRATE IMPROVED FUNCTIONAL STRENGTH EVIDENCED BY FIVE TIMES SIT TO STAND TEST (CUT SCORE >12 SECONDS INDICATES AN INCREASED FALL RISK) IMPROVING FROM UNABLE TO LESS THAN OR EQUAL TO 12 SECONDS WITHIN 8 WEEKS IN ORDER TO DECREASE FALL RISK PT LTG: PATIENT WILL DEMONSTRATE INDEPENDENCE AND COMPLIANCE WITH HEP WITHIN 4 WEEKS Goal Provider Goal - PT LTG: PATIENT/CAREGIVER WILL DEMONSTRATE ADHERENCE TO FALL REDUCTION SELF-MANAGEMENT AND REDUCING FALL RISK FACTORS TO MINIMIZE FALL RISK BY END OF EPISODE. Goal Provider Goal - PT GOAL: PATIENT/CAREGIVER WILL VERBALIZE UNDERSTANDING OF SIGNS AND SYMPTOMS THAT PUT THE PATIENT AT RISK FOR HOSPITALIZATION /EMERGENCY ROOM VISITS, WHEN TO NOTIFY NURSE/PHYSICIAN OF COMPLICATIONS/DECLINE AND WHEN TO CALL 911. Goal Provider Goal - PT LTG: PATIENT WILL MAINTAIN OXYGEN SATURATION WITHIN PHYSICIAN ORDERED PARAMETERS THROUGHOUT EPISODE OF CARE. Encounters Start Date/Time End Date/Time Encounter Type Admission Type Attending [facility] Care Department Encounter ID Discharge Date Discharge Status Discharge Condition Discharge Reason Percent Goals Met 2025-05-14 00:00:00 2025-07-12 00:00:00 Outpatient NEW ADMISSION JOYCE CABALLERO [facility] [id number] 50.00
== END 2025-06-15 10:56 | disposition left against medical advice (07) ==
PROVIDERS: Emergency Provider Student in an Organized Health Care Education/Training Program; PCP Internal Medicine
DX: Z53.21 Procedure and treatment not carried out due to patient leaving prior to being seen by health care provider (principal)
CPT/HCPCS: 99211

== ENCOUNTER 2025-08-13 12:59 | Outpatient (CLI) | payer MEDICARE, SELFPAY ==
[2025-08-13 13:41] LABS: Hematocrit 38.5 % (42.0-52.0); Hemoglobin 11.7 g/dL (14.1-18.0); Immature Granulocytes % 0.3 %; Mean Corpuscular HGB Conc 30.4 g/dL (31.8-35.4); Mean Corpuscular Hemoglobin 27.4 pg (27.0-31.2); Mean Corpuscular Volume 90.2 fl (80-94); Nucleated Red Blood Cells % 0 %; Platelet Count 267 K/mm3 (142-424); Red Blood Count 4.27 M/mm3 (4.60-6.20); Red Cell Distribution Width-SD 47.9 fL; White Blood Count 9.7 K/mm3 (4.8-10.8)
[2025-08-13 14:02] LABS: Alanine Aminotransferase 20 U/L (12-78); Albumin Level 4.0 g/dl (3.5-5.0); Albumin/Globulin Ratio 1.5 (1.1-1.8); Alkaline Phosphatase 95 U/L (38-126); Anion Gap 13.5 mEq/L (5-15); Aspartate Amino Transferase 31 U/L (17-59); Bilirubin,Total 0.8 mg/dl (0.2-1.3); Blood Urea Nitrogen 23 mg/dl (9-20); Calcium 9.2 mg/dl (8.4-10.2); Carbon Dioxide 28 mmol/L (22.0-30.0); Chloride 104 mmol/L (98-107); Cholesterol 110 mg/dl (140-200); Creatinine,Serum 0.80 mg/dl (0.66-1.25); Estimated Glomerular Filt Rate 92 ml/min (>60); GFR (African American) 111 ML/MIN (>60); Globulin 2.7 g/dL (1.3-3.2); Glucose 78 mg/dl (74-100); HDL Cholesterol 62 mg/dl (40-60); Potassium 4.5 mmoL/L (3.5-5.1); Sodium 141 mmol/L (136-145); Total Protein,Serum 6.7 g/dl (6.3-8.2); Triglycerides 58 mg/dl (30-150)
[2025-08-13 14:33] LABS: Prostate Specific Ag, Diagnost 4.79 ng/ml (0.0-4.0)
== END 2025-08-13 23:59 | disposition home or self-care (01) ==
LOC: LAB.DROPOF 08-15 13:05
PROVIDERS: PCP Internal Medicine; Visit Provider Internal Medicine
DX: E78.5 Hyperlipidemia, unspecified (principal); I10 Essential (primary) hypertension; I25.10 Atherosclerotic heart disease of native coronary artery without angina pectoris; R97.20 Elevated prostate specific antigen [PSA]
CPT/HCPCS: 80053; 80061; 84153; 85025